=== PATIENT | female | born 2000 | race Caucasian/White ===

== ENCOUNTER 2024-02-17 03:10 | Emergency (ER) | payer SELFPAY ==
--- NOTE | 2024-02-17 03:05 | ECG_ITS ---
APPROVED REPORT Exam: Resting ECG HR:69 bpm ECG Measurements Heart Rate 69 AXES NV 175 P 54 QRSd 94 QRS 18 QT 365 T 24 QTc 384 Conclusion SINUS RHYTHM NORMAL ECG Electronically signed by : JOCELYN BRADLEY, 02/17/2024 06:21:11
[2024-02-17 03:10] VITALS: BP 126/77; PULSE 70; RESP 18; TEMP 37; O2SAT 100; BMI 36.2
--- NOTE | 2024-02-17 03:13 | XR_ITS ---
PROCEDURE INFORMATION: Exam: XR Chest Exam date and time: 02/17/2024 3:35 AM Age: 23 years old Clinical indication: Pain; Chest pressure; Additional info: Cp TECHNIQUE: Imaging protocol: Radiologic exam of the chest. Views: 2 views. COMPARISON: No relevant prior studies available. FINDINGS: Lungs: Unremarkable. No consolidation. Pleural spaces: Unremarkable. No pleural effusion. No pneumothorax. Heart/Mediastinum: Unremarkable. No cardiomegaly. Bones/joints: Unremarkable. IMPRESSION: No acute findings.
[2024-02-17] MEDS: ASPIRIN 81MG CHEWABLE TABLET 324 MG PO (03:17)
[2024-02-17 03:24] LABS: Albumin Level 4.4 g/dl (3.5-5.0); Chloride 108 mmol/L (98-107); Sodium 138 mmol/L (136-145)
[2024-02-17 03:25] LABS: Hematocrit 40.4 % (37.0-47.0); Hemoglobin 13.5 g/dL (12.2-16.2); Mean Corpuscular HGB Conc 33.4 g/dL (31.8-35.4); Mean Corpuscular Hemoglobin 27.2 pg (27.0-31.2); Mean Corpuscular Volume 81.3 fl (81-99); Potassium 3.8 mmoL/L (3.5-5.1); Red Blood Count 4.97 M/mm3 (4.20-5.40); White Blood Count 8.8 K/mm3 (4.8-10.8)
[2024-02-17 03:26] LABS: Basophils % 0.3 % (0.1-2.0); Eosinophils # 0.2 K/mm3 (0.0-0.4); Eosinophils % 2.3 % (0.1-12.0); HCG Qualitative, Serum Negative (Negative); Lymphocytes # 2.4 K/mm3 (0.7-4.5); Mean Platelet Volume 12.7 fl (7.4-10.4); Monocytes # 0.5 K/mm3 (0.1-1.0); Monocytes % 5.7 % (1.7-9.3); Neutrophils # 5.7 K/mm3 (1.8-7.8); Neutrophils % 64.5 % (37.0-80.0); Platelet Count 215 K/mm3 (142-424); Red Cell Distribution Width 12.4 % (11.5-17.5)
[2024-02-17 03:27] LABS: Alanine Aminotransferase 42 U/L (12-78); Albumin/Globulin Ratio 1.6 (1.1-1.8); Alkaline Phosphatase 92 U/L (38-126); Anion Gap 7.8 mEq/L (5-15); Aspartate Amino Transferase 30 U/L (14-36); Bilirubin,Total 0.5 mg/dl (0.2-1.3); Blood Urea Nitrogen 13 mg/dl (7-17); Carbon Dioxide 26 mmol/L (22.0-30.0); Estimated Glomerular Filt Rate 104 ml/min (>60); GFR (African American) 125 ML/MIN (>60); Globulin 2.7 g/dL (1.3-3.2); Total Protein,Serum 7.1 g/dl (6.3-8.2)
[2024-02-17 03:28] LABS: Calcium 9.1 mg/dl (8.4-10.2); Glucose 122 mg/dl (74-100)
[2024-02-17] MEDS: ONDANSETRON 4MG ODT 4 MG SL (03:38)
[2024-02-17 03:40] LABS: Troponin I < 0.01 ng/ml (0.00-0.034)
[2024-02-17 04:00] VITALS: BP 119/74; PULSE 66; O2SAT 93
[2024-02-17 04:30] VITALS: BP 122/82; PULSE 62; O2SAT 97
[2024-02-17 04:59] VITALS: BP 116/82; PULSE 65; O2SAT 98
--- NOTE | 2024-02-17 05:00 | ED_ITS ---
Discharge Plan Disposition Patient Disposition: Home, Self-Care Condition: Good Referrals Follow up/Referrals: Provider,MD Manpreet [Primary Care Provider] - See instructions Prakash Mckeon MD [Staff Physician] - See instructions (recurrent chest pain with occasional palpitations, previous reassuring evals) Activity Restrictions/Add. Instructions Additional Instructions/Restrictions: You were evaluated in the ER and are appropriate for discharge at this time. Continue home medications as previously prescribed. Call the cardiology office for an appointment. You have been referred to them for this purpose. Also follow-up with your primary care doctor. Return to the ER with new, worsening, or otherwise concerning symptoms. Clinical Impressions Clinical Impression: Chest pain Print Language Print Language: Romansh Discharge ED Provider: Louis Xavier General Chief Complaint: Chest Pain Stated Complaint: CP Time Seen by Provider: 02/17/24 03:15 Mode of Arrival: Family Vehicle Source of Information: Patient Limitations: No Limitations Description of Symptoms (Recalled from ER Triage Doc. by RN): Pt c/o midsternal chest pain that has been intermittent for months. States she has been worked-up for palpitations at [facility] and referred to Cardiology there but not until next July. She reports the pain began while she was sitting on the cough doing nothing . Reports she had an echo at [facility] that revealed my heart beats at 50% . She was given metoprolol and has been taking this. Denies any dizzines, SOA, cough, or n/v/d. Denies any radiating pain. She is s/p cholecystsectomy. History of Present Illness HPI narrative: 23-year-old female presents to the ER complaining of midsternal chest pain that she has had for months but was worse tonight. She reports having multiple previous evaluations for her symptoms and for palpitations at [place] and has a referral for cardiology there but has not yet seen them in office. Patient reports tonight approximately 4 hours prior to arrival she had worsening of her chronic chest pain without radiation. She does report associated nausea. She had no syncope, no difficulty breathing, no cough, no vomiting or diarrhea. Pain is nonradiating and she reports it has improved since it started. Patient had initially reported her heart only beats at 50% however after further discussion with her it turns out she has a report of an EF of 50%. She does have a history of prior cholecystectomy. She is not having any abdominal pain at this time. Patient is not on systemic control, she has a Mirena IUD, she denies history of blood clot, no recent long distance travel. She takes metoprolol. Related Data Allergies Allergy/AdvReac Type Severity Reaction Status Date / Time codeine Allergy Other Verified 02/17/24 03:17 [facility] Disclaimer: The information contained in this section may have been updated after the patient was seen, as this information can be updated by other users. Social History Smoking Status: Former smoker alcohol intake: never current occupational status: other Travel in the last 8 weeks: None ROS Obtained: Yes Systems reviewed as appropriate & no additional complaints except as documented Per HPI Constitutional Constitutional: Denies fever(s) Physical Exam General General appearance: alert and in no apparent distress Head Head exam: atraumatic and normocephalic Eye Eye exam: Present PERRL and EOMI ENT ENT exam: Present mucous membranes moist Neck Neck exam: Present normal inspection and full ROM Chest Chest inspection: Present symmetric chest wall rise; Absent tenderness Respiratory Respiratory exam: Present normal lung sounds bilaterally; Absent respiratory distress, wheezes or stridor Cardiovascular Cardiovascular exam: Present regular rate and normal rhythm Abdominal Exam Abdominal exam: Present soft; Absent distention or tenderness Extremities Exam Extremities exam: Present full ROM; Absent edema Neurological Exam Neurological exam: Present alert and oriented X3; Absent motor sensory deficit Psychiatric Psychiatric exam: Present normal affect and normal mood Skin Skin exam: Present warm and dry HEART Score HEART Score HEART Score assessment performed?: Yes History (anamnesis): Slightly suspicious ECG: Normal Age: <45 years Risk factors: 1-2 risk factors Troponin: </= normal limit HEART Score: 1 Critical Care Critical Care Time Critical Care Time: No Medical Decision Making Jack Inquiry Pt receiving controlled substance: No Vital Signs Vital Signs: 02/17/24 03:10 02/17/24 04:00 02/17/24 04:30 Temperature 98.6 F Temperature Source Oral Pulse Rate 66 62 Pulse Rate [Right] 70 Respiratory Rate 18 Blood Pressure 119/74 122/82 Blood Pressure [Right Arm] 126/77 Blood Pressure Mean [Right Arm] 93 Blood Pressure Source [Right Arm] Automatic Cuff 02 Sat by Pulse Oximetry 100 93 L 97 Oxygen Delivery Method Room Air 02/17/24 04:59 Temperature Temperature Source Pulse Rate 65 Pulse Rate [Right] Respiratory Rate Blood Pressure 116/82 Blood Pressure [Right Arm] Blood Pressure Mean [Right Arm] Blood Pressure Source [Right Arm] 02 Sat by Pulse Oximetry 98 Oxygen Delivery Method Lab Data Labs: Lab Results 02/17/24 03:12: WBC 8.8, RBC 4.97, Hgb 13.5, Hct 40.4, MCV 81.3, MCH 27.2, MCHC 33.4, RDW 12.4, Plt Count 215, MPV 12.7 H, Neut % (Auto) 64.5, Lymph % (Auto) 27.0, [place] % (Auto) 5.7, Eos % (Auto) 2.3, Baso % (Auto) 0.3, Neut # (Auto) 5.7, Lymph # (Auto) 2.4, [place] # (Auto) 0.5, Eos # (Auto) 0.2, Baso # (Auto) 0.0, Sodium 138, Potassium 3.8, Chloride 108 H, Carbon Dioxide 26, Anion Gap 7.8, BUN 13, Creatinine 0.70, Estimated GFR 104, Est GFR ( Amer) 125, Glucose 122 H, Calcium 9.1, Total Bilirubin 0.5, AST 30, ALT 42, Alkaline Phosphatase 92, Troponin I < 0.01, Total Protein 7.1, Albumin 4.4, Globulin 2.7, Albumin/Globulin Ratio 1.6, Serum HCG, Qual Negative 02/17/24 05:50: Troponin I < 0.01 02/17/24 03:12 02/17/24 03:12 Response Orders (Tests/Meds): ED MEDICATIONS Discontinued Medications Generic Name Dose Route Start Last Admin Trade Name Freq PRN Reason Stop Dose Admin Aspirin 324 mg 02/17/24 03:15 02/17/24 03:17 Aspirin 81mg Chewable Tablet PO 02/17/24 03:16 324 mg ONCE ONE Administration Ondansetron HCl 4 mg 02/17/24 03:22 02/17/24 03:38 Ondansetron 4mg Odt SL 02/17/24 03:23 4 mg ONCE ONE Administration ORDERS Category Date Time Status CXR 2 view (NOT portable) [XR chest 2V] Stat Exams 02/17/24 03:13 Completed CBC w/Auto Diff [Complete Blood Count Auto Diff] Stat Lab 02/17/24 03:12 Completed CMP [Comprehensive Metabolic Panel] Stat Lab 02/17/24 03:12 Completed HCG Qualitative, Serum Stat Lab 02/17/24 03:12 Completed HIV Combo Routine Lab 02/17/24 03:12 Received Hep C Ab with Reflex to RNA Stat Lab 02/17/24 03:12 Received PT INR [Prothrombin Time INR] Stat Lab 02/17/24 03:13 Ordered Trop I [Troponin I] Stat Lab 02/17/24 03:12 Completed Troponin I Q3H Lab 02/17/24 05:50 Completed Troponin I Q3H Lab 02/17/24 09:15 Ordered MDM Narrative Medical Decision Narrative: In summary, this 23-year-old female presents to the emergency department today with chest pain. On initial evaluation patient is hemodynamically stable, afebrile, cardiopulmonary exam is benign, abdominal exam normal, overall exam is reassuring and benign. Differential diagnosis includes but is not limited to ACS, I considered PE however patient is PERC negative, also considered esophageal spasm, MSK symptoms, pneumothorax. Based on these concerns, I ordered serum labs, cardiac workup, chest x-ray. ECG personally interpreted demonstrates normal sinus rhythm, rate 69, normal axis, normal KS and QTc, no STEMI, overall normal ECG. Patient received ondansetron for treatment. Labs personally reviewed demonstrate nonactionable labs, CBC is without leukocytosis or anemia, platelets normal, CMP nonactionable, initial troponin undetectably low less than 0.01, serial troponin pending. hCG negative. Chest x-ray personally interpreted does not demonstrate acute intrathoracic abnormality. See radiology read for final interpretation. Patient was placed into ED observation at 0415 for serial troponins to rule out evolving AR and preclude unnecessary admission. Patient remained on the athletic monitor while in ED observation. She had stable, reassuring vitals throughout. On frequent reassessment she is not had any recurrence of symptoms and is currently asymptomatic. She is tolerating oral intake. Repeat troponin also undetectably low less than 0.01. She is appropriate for discharge at this time. She was referred to cardiology for outpatient follow-up as well as given instructions to follow-up with her primary care doctor. Patient was given instructions on symptomatic management, follow up instructions, and return precautions for the emergency department. Patient indicated understanding and was discharged in stable condition. Total time in ED observation: 2 hours 8 minutes.
[2024-02-17 06:15] LABS: Troponin I < 0.01 ng/ml (0.00-0.034)
[2024-02-17 06:32] VITALS: BP 123/74; PULSE 68; RESP 15; TEMP 36.7; O2SAT 98
[2024-02-17 13:31] LABS: HIV Combo NEGATIVE (Negative)
[2024-02-19 07:08] LABS: HCV Ab Non Reactive (Non Reactive)
== END 2024-02-17 06:34 | disposition home or self-care (01) ==
PROVIDERS: Emergency Provider Emergency Medicine
DX: R07.9 Chest pain, unspecified (principal); R11.0 Nausea
CPT/HCPCS: 71046; 80053; 84484; 84703; 85025; 86803; 87389; 93005; 99284; Q0162

== ENCOUNTER 2024-03-31 19:41 | Emergency (ER) | payer OTHER, SELFPAY ==
[2024-03-31] VITALS (7 sets, daily range): BP systolic 97–127; BP diastolic 61–88; PULSE 61–71; RESP 10–21; TEMP 36.7–36.8; O2SAT 98–100; BMI 34.0
--- NOTE | 2024-03-31 19:39 | ECG_ITS ---
APPROVED REPORT Exam: Resting ECG HR:67 bpm ECG Measurements Heart Rate 67 AXES LA 173 P 68 QRSd 91 QRS 63 QT 384 T 62 QTc 399 Conclusion SINUS RHYTHM NORMAL ECG UNCONFIRMED REPORT Electronically signed by : COLTON CARTAGENA, 04/01/2024 06:50:49
--- NOTE | 2024-03-31 20:05 | ED_ITS ---
<Statement entered by Danica Huynh DO - 04/01/24 00:26> I was consulted by the [facility], and we discussed the complexity of the problems being addressed. I approved the treatment and management plan for this patient's care in the emergency department, thus performing a substantive portion of the medical decision making. I independently interpreted EKG at 1946 and noted normal sinus rhythm with a ventricular rate of [address] changes concerning for ischemia or cardiac inflammation. Normal axis and intervals. On my assessment, the patient is resting comfortably with no symptoms. Vitals are normal on cardiac telemetry. She has had no recurrence of syncope. She is alert, conversational, reassuring cardiopulmonary exam. She has mild transaminitis, which she was already told previously. She has had extensive workup here as well as [facility] for chest pain in the past and also is following up with cardiology at [place]. At this time, I feel that she is appropriate for discharge with continued close outpatient follow-up with cardiology. Strict return precautions given Danica Huynh DO Discharge Plan Disposition Chief Complaint: Syncope Referrals Follow up/Referrals: Dada Sykes MD [Referring] - See instructions Instructions Patient Instructions: DI for Syncope in Adults (Fainting), DI for Syncope in Children (Fainting) Print Language Print Language: Spanish Discharge ED Provider: Danica Huynh General Adult HPI General Chief complaint: Syncope Stated complaint: Chest pain, dizziness Time Seen by Provider: 03/31/24 20:05 History of Present Illness HPI narrative: Patient presents for evaluation of syncope. Patient states that she was riding in a truck and had sudden onset of substernal chest pain and then syncopized. Boyfriend confirms story as she was the passenger. He said that she passed out several times on the way here. She reports that she has some sort of cardiac arrhythmia and is due for a cardiac ablation at some point in the near future in [facility]. Currently she denies chest pain fever chills hemoptysis hematochezia melena nausea vomit diarrhea focal neurologic deficits. Related Data Allergies Allergy/AdvReac Type Severity Reaction Status Date / Time codeine Allergy Other Verified 02/17/24 03:17 [facility] Disclaimer: The information contained in this section may have been updated after the patient was seen, as this information can be updated by other users. Social History (Updated 02/17/24 @ 06:24 by Louis Xavier MD) Smoking Status: Former smoker alcohol intake: never current occupational status: other Travel in the last 8 weeks: None Have you lived/traveled outside US in past 30 days?: No Contact w/someone who lives/traveled outside US past 30 days?: No Exposure to someone with infectious disease in past 14 days?: No Do you have a fever (greater than 100.4 F or 38 C)?: No Have you tested positive for COVID-19: No Exposed to someone with COVID-19 in past 14 days?: No Do you have a sore throat?: No Do you have a cough?: No Do you have any weakness?: Yes Do you have any diarrhea?: No Are you experiencing any unusual bleeding?: No Do you have any muscle aches/pain?: No Do you have any abdominal pain?: No Are you experiencing loss of taste or smell?: No ROS Obtained: Yes Systems reviewed as appropriate & no additional complaints except as documented Physical Exam General General appearance: alert and in no apparent distress Respiratory Respiratory exam: Present normal lung sounds bilaterally Cardiovascular Cardiovascular exam: Present regular rate Neurological Exam Neurological exam: Present alert and oriented X3 Medical Decision Making Medical Records Medical records reviewed: Yes I reviewed the patient's medical records. Screening: Per USPSTF and CDC recommendations, given the prevalence of disease in our region, it is our hospital?s policy to screen for HIV and viral Hepatitis for all patients aged 18 and over and those with ongoing risk factors. Jack Inquiry Pt receiving controlled substance: No Vital Signs: 03/31/24 19:41 03/31/24 20:00 03/31/24 20:30 Temperature 98.1 F Temperature Source Oral Pulse Rate 61 64 Pulse Rate [Right] 66 Respiratory Rate 19 10 L 18 Blood Pressure 124/84 115/81 Blood Pressure [Right Arm] 119/71 Blood Pressure Mean [Right Arm] 87 Blood Pressure Source [Right Arm] Automatic Cuff Blood Pressure Position [Right Arm] Supine 02 Sat by Pulse Oximetry 100 100 98 Oxygen Delivery Method Room Air Room Air Room Air Lab Data Lab results reviewed: Yes I reviewed the patient's lab results. Lab Results 03/31/24 19:35: WBC 7.0, RBC 5.09, Hgb 13.9, Hct 42.2, MCV 82.9, MCH 27.3, MCHC 32.9, RDW 12.7, Plt Count 260, MPV 13.3 H, Neut % (Auto) 56.8, Lymph % (Auto) 29.8, [place] % (Auto) 8.6, Eos % (Auto) 3.9, Baso % (Auto) 0.6, Neut # (Auto) 4.0, Lymph # (Auto) 2.1, [place] # (Auto) 0.6, Eos # (Auto) 0.3, Baso # (Auto) 0.0, PT 10.0, INR 0.90, Sodium 139, Potassium 3.8, Chloride 101, Carbon Dioxide 31 H, Anion Gap 10.8, BUN 9, Creatinine 0.70, Estimated Creat Clear 166, Estimated GFR 104, Est GFR ( Amer) 125, Glucose 66 L, Calcium 8.8, Magnesium 1.9, Total Bilirubin 0.4, AST 50 H, ALT 130 H, Alkaline Phosphatase 103, Total Protein 7.4, Albumin 4.8, Globulin 2.6, Albumin/Globulin Ratio 1.8, Plasma/Serum Alcohol < 10 03/31/24 20:43: Urine Color Yellow, Urine Appearance Clear, Urine pH 7.5, Ur Specific [place] 1.015, Urine Protein Negative, Urine Glucose (UA) Negative, Urine Ketones Negative, Urine Blood Negative, Urine Nitrate Negative, Urine Bilirubin Negative, Urine Urobilinogen 0.2, Ur Leukocyte Esterase Trace, Urine HCG, Qual Negative 03/31/24 19:35 03/31/24 19:35 Orders (Tests/Meds): ED MEDICATIONS Discontinued Medications Generic Name Dose Route Start Last Admin Trade Name William PRN Reason Stop Dose Admin Acetaminophen 1,000 mg 03/31/24 20:27 03/31/24 20:43 Acetaminophen 500mg Tab PO 03/31/24 20:28 1,000 mg ONCE ONE Administration Ondansetron HCl 4 mg 03/31/24 20:27 03/31/24 20:43 Ondansetron 4mg/2ml Vial IV 03/31/24 20:28 4 mg ONCE ONE Administration ORDERS Category Date Time Status CT angio chest PE protocol Stat Cat Scan 03/31/24 20:27 Ordered BNP [NT Pro Brain Natriuretic Pep.] Stat Lab 03/31/24 19:35 Results CBC w/Auto Diff [Complete Blood Count Auto Diff] Stat Lab 03/31/24 19:35 Completed CMP [Comprehensive Metabolic Panel] Stat Lab 03/31/24 19:35 Results Ethyl Alcohol Stat Lab 03/31/24 19:35 Completed HIV Combo Stat Lab 03/31/24 09:35 Received Hepatitis C Ab Qual. W/ RFX Stat Lab 03/31/24 09:35 Received INR [Prothrombin Time INR] Stat Lab 03/31/24 19:35 Completed Magnesium Stat Lab 03/31/24 19:35 Results Procalcitonin Stat Lab 03/31/24 19:35 Results Rapid PCR Covid and Flu A/B Stat Lab 03/31/24 20:38 Received Thyroid Panel Stat Lab 03/31/24 19:35 Received Trop I [Troponin I] Stat Lab 03/31/24 19:35 Results Troponin I Q3H Lab 03/31/24 23:30 Ordered Troponin I Q3H Lab 04/01/24 02:30 Ordered UA [Urinalysis and Microscopic] Stat Lab 03/31/24 20:43 Results UDS [Drug Screen,Urine] Stat Lab 03/31/24 20:43 Received Urine , HCG Qual. Stat Lab 03/31/24 20:43 Completed Medical Decision Narrative: In summary patient is a 23-year-old female who presents to the emergency department for evaluation of syncope and chest pain. Patient is initially normotensive with a blood pressure 119/71 pulse 66 respiratory rate is 19 satting at 100% on room air normal sinus rhythm on the bedside monitor upon arrival, afebrile at 98.1. Physical exam is unremarkable nonfocal including [place] Coma Score 15 patient is awake alert and oriented person place and circumstance she ambulates in the emergency department she has no focal neurologic deficits her CIWA score 0 breath sounds are clear and equal bilaterally to the bases heart sounds are normal. Differential diagnosis includes cardiac arrhythmia versus vasovagal syncope versus ACS etc. Initial workup will be conducted with hematologic labs plain film chest x-ray urine drug screen urinalysis urine test. Initial interventions include or considered however patient has no focal complaints currently thus we will can just use continuous cardiac monitoring and pulse oximetry for now. Initial workup is ordered and pending at the time of handoff to Dr. Huynh at 2100 hrs. Critical Care Critical Care Time Critical Care Time: No
--- NOTE | 2024-03-31 20:27 | CT_ITS ---
PROCEDURE INFORMATION: Exam: CTA Chest With Contrast Exam date and time: 03/31/2024 9:15 PM Age: 23 years old Clinical indication: Pain; Chest pressure; Additional info: Syncope and collapse, chest pain TECHNIQUE: Imaging protocol: Computed tomographic angiography of the chest with contrast. Exam focused on the arteries. 3D rendering (Not supervised by radiologist): MIP and/or 3D reconstructed images were created by the technologist. Radiation optimization: All CT scans at this facility use at least one of these dose optimization techniques: automated exposure control; mA and/or kV adjustment per patient size (includes targeted exams where dose is matched to clinical indication); or iterative reconstruction. Contrast material: ISOVUE; Contrast volume: 70 ml; Contrast route: INTRAVENOUS (IV); COMPARISON: CR XR CHEST 2V 02/17/2024 3:35 AM FINDINGS: Pulmonary arteries: No CT evidence of acute pulmonary embolus. Aorta: No aortic dissection. Lungs: No acute airspace disease. Pleural spaces: No pleural effusion. No pneumothorax. Heart: Unremarkable. No cardiomegaly. No pericardial effusion. Coronary arteries: No coronary artery calcifications. Lymph nodes: Unremarkable. No enlarged lymph nodes. Gallbladder and biliary ducts: Cholecystectomy Bones/joints: Unremarkable. No acute fracture. Soft tissues: Unremarkable. IMPRESSION: No visible acute intrathoracic abnormality. No acute pulmonary embolus or aortic dissection.
--- NOTE | 2024-03-31 20:40 | PC.NURSE ---
Swab collected. Patient disconnected from monitors to collect urine sample.
[2024-03-31 20:41] LABS: Coronavirus 19, PCR Not Detected (NotDetected); Influenza A, PCR Not Detected (NotDetected); Influenza B, PCR Not Detected (NotDetected)
[2024-03-31] MEDS: ONDANSETRON 4MG/2ML VIAL 4 MG IV (20:43)
[2024-03-31] MEDS: ACETAMINOPHEN 500MG TAB 1000 MG PO (20:43)
[2024-03-31 20:49] LABS: Basophils % 0.6 % (0.1-2.0); Eosinophils # 0.3 K/mm3 (0.0-0.4); Eosinophils % 3.9 % (0.1-12.0); Hematocrit 42.2 % (37.0-47.0); Hemoglobin 13.9 g/dL (12.2-16.2); Lymphocytes # 2.1 K/mm3 (0.7-4.5); Lymphocytes % 29.8 % (10-50); Mean Corpuscular HGB Conc 32.9 g/dL (31.8-35.4); Mean Corpuscular Hemoglobin 27.3 pg (27.0-31.2); Mean Corpuscular Volume 82.9 fl (81-99); Mean Platelet Volume 13.3 fl (7.4-10.4); Monocytes # 0.6 K/mm3 (0.1-1.0); Monocytes % 8.6 % (1.7-9.3); Neutrophils % 56.8 % (37.0-80.0); Platelet Count 260 K/mm3 (142-424); Red Blood Count 5.09 M/mm3 (4.20-5.40); Red Cell Distribution Width 12.7 % (11.5-17.5)
[2024-03-31 20:51] LABS: Microscopic, Urine URINE MICROSCOPIC (MICROSCOPIC)
[2024-03-31 20:56] LABS: Albumin Level 4.8 g/dl (3.5-5.0); Chloride 101 mmol/L (98-107); Sodium 139 mmol/L (136-145)
[2024-03-31 20:57] LABS: Potassium 3.8 mmoL/L (3.5-5.1)
[2024-03-31 20:59] LABS: Appearance,Urine CLEAR (Clear); Bilirubin,Urine Negative (Negative); Blood, Urine Negative (Negative); Color,Urine YELLOW (Yellow); Glucose,Urine (UA) Negative (Negative); Ketones,Urine Negative (Negative); Leukocyte Esterase,Urine TRACE (Negative); Nitrate,Urine Negative (Negative); PH,Urine 7.5 (5.0-8.5); Protein,Urine Negative (Negative); Specific Gravity, Urine 1.015 (1.005-1.030); Urobilinogen,Urine 0.2 EU/dl (0.2)
[2024-03-31 20:59] LABS: Alanine Aminotransferase 130 U/L (12-78); Anion Gap 10.8 mEq/L (5-15); Aspartate Amino Transferase 50 U/L (14-36); Blood Urea Nitrogen 9 mg/dl (7-17); Carbon Dioxide 31 mmol/L (22.0-30.0); Creatinine Clearance Estimated 166 mL/min (50-200); Estimated Glomerular Filt Rate 104 ml/min (>60); GFR (African American) 125 ML/MIN (>60)
[2024-03-31 21:00] LABS: Albumin/Globulin Ratio 1.8 (1.1-1.8); Alkaline Phosphatase 103 U/L (38-126); Bilirubin,Total 0.4 mg/dl (0.2-1.3); Calcium 8.8 mg/dl (8.4-10.2); Globulin 2.6 g/dL (1.3-3.2); Glucose 66 mg/dl (74-100); Magnesium 1.9 mg/dl (1.6-2.3); Total Protein,Serum 7.4 g/dl (6.3-8.2)
[2024-03-31 21:01] LABS: Ethyl Alcohol < 10 mg/dl (0-10)
[2024-03-31 21:01] LABS: Urine Pregnancy, HCG Qual. Negative (Negative)
--- NOTE | 2024-03-31 21:04 | PC.NURSE ---
Pt awake and alert Skin pink warm and dry Resp full and easy. Speech clear and appropriate. Pt denies pain at this time Pt states she was seen at [facility] and had elevated liver enzymes and D-dimer. Had CT scan to assess for PE which was negative.
[2024-03-31 21:11] LABS: Phencyclidine Screen,Urine Negative ng/ml (<25)
[2024-03-31 21:11] LABS: NT Pro Brain Natriuretic Pep. < 20.0 pg/mL (0-125)
[2024-03-31 21:12] LABS: Opiate Screen,Urine Negative ng/ml (<300)
[2024-03-31 21:13] LABS: Barbiturates Screen,Urine Negative ng/ml (<200); Benzodiazepines Screen,Urine Negative ng/ml (<200)
[2024-03-31 21:14] LABS: Amphetamine/Metha Screen,Urine Negative ng/ml (<1000)
[2024-03-31 21:15] LABS: Cannabinoid Screen,Urine Negative ng/ml (<50); Methadone Screen,Urine Negative ng/ml (<300)
[2024-03-31 21:15] LABS: Troponin I < 0.01 ng/ml (0.00-0.034)
[2024-03-31 21:16] LABS: Triiodothryronine (T3) Uptake 30 % (23.5-40.5)
[2024-03-31 21:16] LABS: Cocaine Screen,Urine Negative ng/ml (<300)
[2024-03-31] MEDS: 0.9 % SODIUM CHLORIDE 50 ML VIAL IV (21:16)
[2024-03-31] MEDS: IOPAMIDOL-370 (76%);100ML BOTTLE 70 ML IV (21:16)
[2024-03-31] MEDS: SODIUM CHLORIDE 0.9% 10ML SYR (RAD ONLY) 10 ML IV (21:16)
[2024-03-31 21:17] LABS: Free Thyroxine Index 2.9 ug/dL (5.93-13.13); T4 (Thyroxine) 9.7 ug/dl (5.53-11.0)
[2024-03-31 21:31] LABS: Thyroid Stimulating Hormone 0.67 uIU/mL (0.465-4.68)
[2024-03-31 21:36] LABS: Bacteria,Urine 2+ /lpf
[2024-03-31 21:41] LABS: HIV Combo NEGATIVE (Negative)
[2024-03-31 21:46] LABS: Procalcitonin 0.035 ng/mL (0.0-2.0)
[2024-03-31 21:50] LABS: Hepatitis C Ab Qual. W/ RFX NEGATIVE (Negative)
--- NOTE | 2024-03-31 22:27 | PC.NURSE ---
Pt resting comfortably in bed Awaiting dispo
== END 2024-03-31 23:35 | disposition home or self-care (01) ==
PROVIDERS: Physician Assistant; Emergency Provider Emergency Medicine; PCP Student in an Organized Health Care Education/Training Program
DX: R07.9 Chest pain, unspecified (principal); R55 Syncope and collapse; Z87.891 Personal history of nicotine dependence
CPT/HCPCS: 71275; 80053; 80307; 80320; 81001; 81025; 83735; 83880; 84145; 84436; 84443; 84479; 84484; 85025; 85610; 86803; 87086; 87389; 87636; 93005; 96374; 99285; G0480; J2405; Q9967

== ENCOUNTER 2024-10-16 16:49 | Emergency (ER) | payer OTHER, SELFPAY ==
--- OUTSIDE RECORDS SUMMARY | 2024-08-27 12:00 | XMS_ITS | Encounter Summary ---
Author Organization [facility] Address [address] [place] [address] Care Team Providers Care Aircraft Pneudraulics Repairer Name Role Phone Diana Rachel DO Primary Care Provider + [phone] Reason for Visit * MRI/CAT Scan (Routine) - AFF Authorized Specialty Diagnoses / Procedures Referred By Contac t Referred To Contact Orthopedic Surgery Diagnoses Acute pain of left knee Procedures MRI KNEE LEFT WO CONTRAST Qiana Doimnguez DO [address] [place] [address] Phone: tel: fax: [facility] [address] [place] [id number] Phone: tel: fax: Referral ID Status Reason Start Date Expiration Date Visits Requested Visits Authorized [id number] AFF Authorized 08/11/2024 08/11/2025 1 1 Encounter Details Date Type Department Care Team (Latest Contact Info) Description 08/27/2024 12:00 PM EDT [facility] [address] [place] [address] Qiana Dominguez DO [address] [place] [address] Acute pain of left knee Social History Tobacco Use Types Packs/Day Years Used Date Smoking Tobacco: Some Days Cigarettes Passive Smoke Exposure: Past Smokeless Tobacco: Never Alcohol Use Standard Drinks/Week Comments Not Currently 0 (1 standard drink = 0.6 oz pur e alcohol) social [facility] Utilities Answer Date Recorded In the past 12 months has th e electric, gas, oil, or water company threatened to shut off services in your home? No 06/23/2024 Overall Financial Resource Strain (CARDIA) Answe r Date Recorded How hard is it for you to pa y for the very basics like food, housing, medical care, and heating? Not hard at all 06/23/2024 PHQ-2 Answer Date Recorded PHQ-2 Total Score 0 06/23/2024 [facility] of Occupat ional Health - Occupational Stress Questionnaire Answer Date Recorded Do you feel stress - tense, restless, nervous, or anxious, or unable to sleep at night because your mind is troubled all the time - these days? Patient declined 06/23/2024 Exercise Vital Sign Answer Date Recorde d On average, how many days pe r week do you engage in moderate to strenuous exercise (like a brisk walk)? 0 days 06/23/2024 On average, how many minutes do you engage in exercise at this level? 0 min 06/23/2024 Hunger Vital Sign Answer Date Recorded Within the past 12 months, y ou worried that your food would run out before you got the money to buy more. Never true 06/24/19 25 Within the past 12 months, t he food you bought just didn't last and you didn't have money to get more. Never true 06/23/2024 PRAPARE - Transportation Answer Date Re corded In the past 12 months, has l ack of transportation kept you from medical appointments or from getting medications? No 09/2021 In the past 12 months, has l ack of transportation kept you from meetings, work, or from getting things needed for daily living? No 05/31/2021 [facility] IP Transportation Answer D ate Recorded In the past 12 months, has l ack of reliable transportation kept you from medical appointments, meetings, work or from getting things needed for daily living? No 06/23/2024 Sexually Active Control Partners Comments Yes OCP Male Pill Comments No Sex and Gender Information Value Date Recorded Sex Assigned at Not on file Legal Sex Female 5:15 AM EDT Gender Identity Not on file Sexual Orientation Not on file documented as of this encounter Functional Status * Is the person deaf or does he/she have serious difficulty hearing? Answer Date of Assessment Author No 06/23/2024 4:46 PM EDT Chris Anne RN * Is the person blind or does he/she have serious difficulty seeing even when wearing glasses? Answer Date of Assessment Author No 06/23/2024 4:46 PM EDT Chris Anne RN * Does this person have serious difficulty walking or climbing stairs? Answer Date of Assessment Author No 06/23/2024 4:46 PM EDT Yusef Anne RN * Does this person have difficulty dressing or bathing? Answer Date of Assessment Author No 06/23/2024 4:46 PM EDT Chris Anne RN * Because of a physical, mental or emotional condition, does this person have difficulty doing errands alone such as visiting a doctor's office or shopping? Answer Date of Assessment Author No 06/23/2024 4:46 PM JASONT Chris Anne RN documented as of this encounter Mental Status * Because of a physical, mental or emotional condition, does this person have serious difficulty concentrating, remembering or making decisions? Answer Entry Date Author No 06/23/2024 4:46 PM EDT Chris Anne RN documented in this encounter Plan of Treatment Upcoming Encounters Date Type Department Care Team (Late st Contact Info) Description 11/16/2024 10:30 AM EDT Clinical Support [facility] Si[facility] Tenorio [address] [place] [phone] 11/16/2024 11:00 AM EDT INITIAL VISIT [facility] Sirena Tenorio [address] [place] [phone] 03/02/2025 1:30 PM EST Office Visit [facility] [address] [place] [address] Gia Moctezuma APRN [address] [place] [address] documented as of this encounter Goals Goal Patient Goal Type Associated Problems Recent Progress Patient-Stated? Author Maintain a healthy diet, exercise regularly and maintain an ideal body weight General No Sahra Steward documented as of this encounter Procedures Procedure Name Priority Date/Time Associated Diagnosis Comments MRI KNEE LEFT WO CONTRAST Routine 08/27/2024 12:13 PM EDT Acute pain of left knee documented in this encounter Results * MRI KNEE LEFT WO CONTRAST (08/27/2024 12:13 PM EDT) Narrative [facility] - 08/27/2024 12:13 PM EDT Please see the scanned MRI report associated with this order on the Imaging tab of the patient's chart. us Qiana Dominguez DO IMG MRI ORDERABLES Final Resul t [facility] documented in this encounter Visit Diagnoses Diagnosis Acute pain of left knee documented in this encounter Care Teams Aircraft Pneudraulics Repairer Relationship Specialty Start Date End Date Diana Rachel [place] [address] PCP - General Family Medicine 09/02/23 documented as of this encounter
--- OUTSIDE RECORDS SUMMARY | 2024-09-01 14:45 | XMS_ITS | Encounter Summary ---
Author Organization [facility] Address [address] [place] [address] Care Team Providers Care Incident Response Analyst Name Role Phone Wilson Diana Chris [place] Primary Care Provider + [phone] Reason for Visit * Reason Comments Pain Encounter Details Date Type Department Care Team (Late st Contact Info) Description 09/01/2024 2:45 [place] [address] Mian Alvarez MD [address] [place] [phone] Patellar tendinitis of left knee (Primary Dx) Social History Tobacco Use Types Packs/Day Years Used Date Smoking Tobacco: Some Days Cigarettes Passive Smoke Exposure: Past Smokeless Tobacco: Never Alcohol Use Standard Drinks/Week Comments Not Currently 0 (1 standard drink = 0.6 oz pur e alcohol) social [facility] Utilities Answer Date Recorded In the past 12 months has [employer], gas, oil, or water [employer] threatened to shut off services in your home? No 06/23/2024 Overall Financial Resource Strain (CARDIA) Answe r Date Recorded How hard is it for you to pa y for the very basics like food, housing, medical care, and heating? Not hard at all 06/23/2024 PHQ-2 Answer Date Recorded PHQ-2 Total Score 0 06/23/2024 [facility] of Occupat ional Health - Occupational Stress [...] things needed for daily living? No 05/31/2021 [facility] IP Transportation Answer D ate Recorded In [...] Author No 06/23/2024 4:46 PM EDT Chris Anne, MARIAN * Does this person have serious difficulty [...] 4:46 PM EDT Chris Anne RN documented as of this encounter Mental Status * Because of a physical, mental or emotional condition, does this person have serious difficulty concentrating, remembering or making decisions? Answer Entry Date Author No 06/23/2024 4:46 PM EDT Chris Anne RN documented in this encounter Progress Notes * Mian Alvarez MD - 09/01/2024 2:45 PM EDT Images from the original note were not included. Name: Roselyn Scruggs Age: 24 y.o. Sex : female : 2000 Mian Alvarez MD Date of Visit: 09/01/24 CHIEF COMPLAINT: Chief Complaint Patient presents with ??? Left Knee - Pain HISTORY: Patient presents with a knee injury involving the left knee. Onset of the symptoms was about a month ago. Inciting event: patient states her knee felt like it hyperextended and she felt a pop . Current symptoms include giving out and pain located over the medial side of her knee. Evaluation to date: patient evaluated at the emergency department on 08/05, she was given an alirio wrap for compression.She then followed up with the [facility] urgent care and was placed into an economy knee brace which has been somewhat helpful. Allergies Allergen Reactions ??? Penicillins Rash ??? Codeine Tylenol with Codeine ??? Omnicef [Cefdinir] Rash Past Medical History: Diagnosis Date ??? Anemia with 2020 ??? Anxiety disorder ??? Arrhythmia ??? Arthritis ??? Depression ??? Family history of Downs syndrome 08/24/2018 Pt's cousin ??? GERD (gastroesophageal reflux disease) ??? Headache migraines ??? Heartburn ??? Irritable bowel syndrome ??? Post-operative nausea and vomiting with teeth extraction Past Surgical History: Procedure Laterality Date ??? ABDOMEN SURGERY 12-23-23 Gallbladder removed ??? CHOLECYSTECTOMY, LAPAROSCOPIC N/A 12/23/2023 LAPAROSCOPIC CHOLECYSTECTOMY; Surgeon: Esme Orozco MD; Location: [facility]; Service: General ??? DENTAL SURGERY multiple teeth extracted ??? TONSILLECTOMY AND ADENOIDECTOMY ??? TYMPANOSTOMY TUBE PLACEMENT PHYSICAL EXAMINATION: General: Well-appearing, pleasant, appropriate affect, no distress, alert and oriented x3. Neuro: Normal neurosensory response to touch. Cardiovascular: No signs of edema. Lymphatic: No signs of lymphangitis. Skin: Intact, warm and dry. Gait: Walks with a nonantalgic gait. Musculoskeletal: left Knee Swelling: None Effusion: Negative Tenderness: Patellar tendon Range of Motion: Extension: Normal Flexion: Normal McMurrays: Negative Anterior Lachmann: Negative Posterior Lachmann: Negative Anterior Drawer: Negative Posterior Drawer: Negative Varus Stress Test: Negative Valgus Stress Test: Negative Pivot Shift: Negative Patellar Apprehension: No IMPRESSION: Left knee patellar tendinitis PLAN: Diagnoses and all orders for this visit: Patellar tendinitis of left knee Rest, ice, compression, and elevation (RICE) therapy. Natural history and expected course discussed. Questions answered. NSAIDs per medication orders. Wear brace as needed Follow up as needed X-RAYS: Bilateral standing and Left lateral and Merchant views show No acute fracture or dislocation. MRI: IMPRESSION: 1. No bone/joint abnormality. Intact menisci and articular cartilage surfaces. 2. No ligament or tendon tear. Mild proximal patellar tendinosis. 09/01/24 documented in this encounter Plan of Treatment Upcoming Encounters Date Type Department Care Team (Late st Contact Info) Description 11/16/2024 10:30 AM EDT Clinical Support [facility] Sirena Eugene [address] [place] [address] [place] [phone] 11/16/2024 11:00 AM EDT INITIAL VISIT SEP Sirena Eugene [address] [place] [address] Road [address] [place] [phone] 03/02/2025 1:30 PM EST Office Visit [facility] [address] [facility] [address] [place] [phone] Gia Moctezuma, SURGICAL GARMENT ASSEMBLER [address] [place], [place] [address] documented as of this encounter Goals Goal Patient Goal Type Associated Problems Recent Progress Patient-Stated? Author Maintain a healthy diet, exercise regularly and maintain an ideal body weight General Sahra Boone documented as of this encounter Visit Diagnoses Diagnosis Patellar tendinitis of left knee- Primary Patellar tendinitis documented in this encounter Care Teams Incident Response Analyst Relationship Specialty Start Date End Date Diana Rachel DO [address] [place] [address] PCP - General Family Medicine 09/02/23 documented as of this encounter
--- OUTSIDE RECORDS SUMMARY | 2024-09-14 10:00 | XMS_ITS | Encounter Summary ---
Author Organization [place] [facility] [place] [address] Care Team Providers Care Industrial Cafeteria Manager Name Role Phone Diana Rachel DO Primary Care Provider + [phone] Reason for Referral * Medication Prior Authorization - Denied Specialty Diagnoses / Procedures Referred By Cheryl nowak Referred To Contact Diagnoses Obesity, Class II, BMI 35-39.9 Diana Rachel DO [address] [place] [address] Phone: tel: fax: Referral ID Status Reason Start Date Expiration Date Visits Re quested Visits Authorized [id number] Denied 1 1 Reason for Visit * Reason Comments Annual Exam Weight Loss Would like to discus s weight loss options. Encounter Details Date Type Department Care Team (Late st Contact Info) Description 09/14/2024 10:00 AM EDT Office Visit [facility] [address] [place] [phone] Diana Rachel DO [address] [facility] [place] [phone] Obesity, Class II, BMI 35-39.9 (Primary Dx); Diabetes mellitus screening Social History Tobacco Use Types Packs/Day Years Used Date Smoking Tobacco: Some Days Cigarettes Passive Smoke Exposure: Past Smokeless Tobacco: Never Tobacco Cessation:Ready to Q uit: Not Asked; Counseling Given: Not Answered Alcohol Use Standard Drinks/Week Comments Not Currently 0 (1 standard drink = 0.6 oz pur e alcohol) social [facility] Utilities Answer Date Recorded In [...] Answer Date Recorded PHQ-2 Total Score 0 09/14/2024 [facility] - Occupational Stress [...] things needed for daily living? No 05/31/2021 [facility] IP Transportation Answer D ate Recorded In [...] on file documented as of this encounter Last Filed Vital Signs Vital Sign Reading Time Taken Comments Blood Pressure 121/84 09/14/2024 10:03 AM EDT Pulse 84 09/14/2024 10:03 AM EDT Temperature 36.7 C (98 F) 09/14/2024 10:03 AM EDT Respiratory Rate 18 09/14/2024 10:03 AM EDT Oxygen Saturation 98% 09/14/2024 10:03 AM EDT Inhaled Oxygen Concentration - - Weight 93 kg (205 lb) 09/14/2024 10:03 AM EDT Height 157.5 cm (5' 2 ) 09/14/2024 10:03 AM EDT Body Mass Index 37.49 09/14/2024 10:03 AM EDT documented in this encounter Functional Status * Is the [...] 4:46 PM EDT Chris Anne RN * PHQ-2 Total Score Answer Date of Assessment Author 0 09/14/2024 10:00 AM EDT Sherry Briscoe MA * PHQ-9 Total Score Answer Date of Assessment Author 0 09/14/2024 10:00 AM EDT Sherry Briscoe MA * Question Answer Date of Assessment Author Little interest or pleasure in doing things 0 09/14/2024 10:00 AM EDT Lily Briscoe MA Feeling down, depressed, or hopeless 0 09/14/2024 10:00 AM Lily Gomes MA Trouble falling or staying asleep, or sleeping too much 0 09/14/2024 10:00 AM Lily Gomes MA Feeling tired or having little energy 0 09/14/2024 10:00 AM Lily Gomes MA Poor appetite or overeating 0 09/14/2024 10:00 AM Lily Gomes MA Feeling bad about yourself - or that you are a failure or have let yourself or your family down 0 09/14/2024 10:00 AM Lily Gomes MA Trouble concentrating on things, such as reading the newspaper or watching television 0 09/14/2024 10:00 AM Lily Goems MA Moving or speaking so slowly that other people could have noticed. Or the opposite - being so fidgety or restless that you have been moving around a lot more than usual 0 09/14/2024 10:00 AM Lily Gomes MA Thoughts that you would be better off , or of hurting yourself in some way 0 09/14/2024 10:00 AM Lily Gomes MA If you checked off any problems, how difficult have these problems made it for you to do your work, take care of things at home, or get along with other people? Not difficult at all 09/14/2024 10:00 AM Lily Gomes MA * PHQ-2 Total Score Answer Date of Assessment Author 0 09/14/2024 10:00 AM Sherry Gomes MA documented as of this encounter Mental Status * Because of a physical, mental or emotional condition, does this person have serious difficulty concentrating, remembering or making decisions? Answer Entry Date Author No 06/23/2024 4:46 PM Chris Vasquez RN documented in this encounter Ordered Prescriptions Prescription Sig Dispense Quantity Refills Last Filled Start Date End Date tirzepatide, weight loss, (ZEPBOUND) 2.5 mg/0.5 mL SubQ Pen InjectorIndications :Obesity, Class II, BMI 35-39.9 Inject 2.5 mg under the skin once a week. 2 mL 09/14/2024 documented in this encounter Progress Notes * Diana Rachel DO - 09/14/2024 10:00 AM EDTAssociated Problem(s): Obesity, Class II, BMI 35-39.9 Reviewed and discussed diet and exercise habits Reviewed and discussed calorie intake, nutrition, water intake Will try to obtain and start zepbound Orders: tirzepatide, weight loss, (ZEPBOUND) 2.5 mg/0.5 mL SubQ Pen Injector; Inject 2.5 mg under the skin once a week. * Diana Rachel DO - 09/14/2024 10:00 AM EDT Assessment & Plan Obesity, Class II, BMI 35-39.9 Reviewed and discussed diet and exercise habits Reviewed and discussed calorie intake, nutrition, water intake Will try to obtain and start zepbound Orders: tirzepatide, weight loss, (ZEPBOUND) 2.5 mg/0.5 mL SubQ Pen Injector; Inject 2.5 mg under the skin once a week. Diabetes mellitus screening Orders: HEMOGLOBIN A1C; Future Diana Rachel DO Family Medicine 09/14/2024 Progress Note: Vitals: 09/14/24 1003 BP: 121/84 Pulse: 84 Resp: 18 Temp: 98 ??F (36.7 ??C) TempSrc: Temporal SpO2: 98% Weight: 205 lb (93 kg) Height: 5' 2 (1.575 m) Body mass index is 37.49 kg/m??. SUBJECTIVE: HPI: 24 year old female who presents with concern about weight management. Patient reports increasing weight over the past several months. Patient has started to adjust her diet and is currently eating salads daily as her primary meal. Reports that salads typically have hard-boiled egg with chickenor salmon and a little bit of ranch. Previous history of multiple methods to lose weight which havenot been effective. Family history of diabetes and patient would like diabetes screening today Review of Systems Constitutional: Negative for activity change and appetite change. All other systems reviewed and are negative. OBJECTIVE: Physical Exam Vitals reviewed. Constitutional: Appearance: Normal appearance. Eyes: Conjunctiva/sclera: Conjunctivae normal. Cardiovascular: Rate and Rhythm: Normal rate. Pulmonary: Effort: Pulmonary effort is normal. Breath sounds: Normal breath sounds. Neurological: General: No focal deficit present. Mental Status: She is alert. Mental status is at baseline. Psychiatric: Mood and Affect: Mood normal. Behavior: Behavior normal. Thought Content: Thought content normal. Judgment: Judgment normal. 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 As Roselyn Scruggs's the primary provider managing their obesity, I am committed to providing the most effective treatment options to manage their condition and improve their overall health outcomes. Roselyn Scruggs has been under my care, and despite prescribing a low calorie diet and an exercise plan, she continues to experience poor weight control. This is reinforced at routine office visits. In addition Roselyn Scruggs has been unsuccessful with {weight management attempts:intermittent fasting, low carb diet, regular exercise (>30 min daily), and Weight Watchers. Additionally, she struggles with obesity with a BMI of 37.49. Given Roselyn Scruggs's clinical profile and the failure of previous treatments to achieve adequate weight control, I believe that initiating therapy with a GLP-1 receptor agonist is medically necessary. This class of medication not only assists in achieving better weight control but also offers additional benefits, such as cardiovascular risk reduction and a reduced risk of developing diabetes, which are particularly pertinent in Roselyn Scruggs's case. The specific GLP-1 receptor agonist I am recommending is Zepbound (tirzapetide). This medication has been shown in clinical studies to provide cardiovascular benefits and may reduce their risk of weight related co-morbidities, making it an ideal choice for Roselyn Scruggs. I am confident that Roselyn Scruggs will greatly benefit from this therapy, and I respectfully request your approval for coverage of this medication. Thank you for your attention to this matter. Please feel free to contact me if you require any additional information or clarification. I look forward to your prompt response. Sincerely, Diana Rachel DO * Adrianna Shelby - 09/14/2024 10:00 AM EDT Venipuncture in the right antecubital vein with 21 gauge needle, length 1 1/2 inch. documented in this encounter Plan of Treatment Upcoming Encounters Date Type Department Care Team (Late st Contact Info) Description 11/16/2024 10:30 AM EDT [facility] [place] [phone] 11/16/2024 11:00 AM EDT INITIAL VISIT SEP [address] [place] [phone] 03/02/2025 1:30 PM EST Office Visit [facility] [address] [place] [address] Gia Moctezuma, VINICIO [address] [place] [address] documented as of this encounter Goals Goal Patient Goal Type Associated Problems Recent Progress Patient-Stated? Author Maintain a healthy diet, exercise regularly and maintain an ideal body weight General [facility] Stay Tobacco Free Lifestyle No Nena Xavier documented as of this encounter Procedures Procedure Name Priority Date/Time Associated Diagnosis Comments HEMOGLOBIN A1C Routine 09/14/2024 10:36 AM EDT Diabetes mellitus screening documented in this encounter Results * HEMOGLOBIN A1C (09/14/2024 10:36 AM EDT) Hgb A1C 5.0 4.2 - 5.6 % 09/14/2024 3:56 PM EDT PREFERRED Over 40 Females Est. Avg Glucose 97 mg/dL 09/14/2024 3:56 PM EDT [facility] [employer] [facility] Blood VENOUS BLOOD / Unknown Venipuncture / Unknown 09/14/2024 10:36 AM EDT 09/14/2024 10:36 AM EDT Narrative PREFERRED [employer] [facility] - 09/14/2024 3:56 PM EDT REFERENCE RANGE: Normal: 4.0-5.6% Pre-diabetes: 5.7-6.4% Provisional diagnosis of diabetes: >6.4% Hgb F>10% and anything which shortens red cell survival, such as hemolytic anemia, or unstable hemoglobin variants such as HbSS, HbSC, or HbCC, will lower the HbA1c value associated with a given level of glycemic control. us Diana Rachel DO CHEMISTRY ORDERABLES Final R esult [facility] [employer] [address] , [place] [address] documented in this encounter Visit Diagnoses Diagnosis Obesity, Class II, BMI 35-39.9- Primary Obesity, unspecified Diabetes mellitus screening Screening for diabetes mellitus documented in this encounter Discontinued Medications Medication Sig Discontinue Reason Start Date End Da te hydrOXYzine (ATARAX) 50 mg Oral Tablet Take 50 mg by mouth every 6 hours as needed for Itching. Take 1 tablet by mouth every 6 hours as needed for anxiety Patient Reported not taking medication 09/14/2024 norethindrone-ethinyl estradiol (03/14) 1 mg-20 mcg (21)/75 mg (7) Oral TabletIndications:Agustin h control counseling Take 1 Tablet by mouth daily. Patient Reported not taking medication 06/16/2024 09/14/2024 ondansetron (ZOFRAN-ODT) 4 mg Oral Tablet, Rapid Dissolve Take 1 Tablet by mouth every 6 hours as needed for Nausea. Patient Reported not taking medication 06/23/2024 09/14/2024 documented as of this encounter Care Teams Industrial Cafeteria Manager Relationship Specialty Start Date End Date Diana Rachel DO [address] [facility] [place] [address] PCP - General Family Medicine 09/02/23 documented as of this encounter
--- OUTSIDE RECORDS SUMMARY | 2024-09-14 14:00 | XMS_ITS | Encounter Summary ---
Author Organization [facility] Address [address] [place] [address] Care Team Providers Care Client Onboarding Analyst Name Role Phone Wilson Diana Chris HARRINGTON Primary Care Provider + [phone] Reason for Referral * Surgical (Routine) - AFF Authorization Not Needed Specialty Diagnoses / Procedures Referred By Contact Referred To Contact Gastroenterology Diagnoses Gastroesophageal reflux disease with esophagitis without hemorrhage Procedures ESOPHAGOGASTRODUODENOSCOPY (EGD) UT ESOPHAGOGASTRODUODENOSCOPY TRANSORAL DIAGNOSTIC UT DILATION ESOPH UNGUIDED SOUND/BOUGIE 1/MULT PASS UT EGD INSERT GUIDE WIRE DILATOR PASSAGE ESOPHAGUS UT EGD BALLOON DILATION ESOPHAGUS <30 MM DIAM Kraig Andrade MD [address] [place] [address] Phone: tel:[phone] fax:[phone] Kraig Andrade MD [address] [place] [address] Phone: tel: fax:[phone] Referral ID Status Reason Start Date Expiration Date Visits Requested Visits Authorized [id number] AFF Authorization Not Needed 09/14/2024 09/14/2025 1 1 Reason for Visit * Reason Comments Hospital Follow Up Encounter Details Date Type Department Care Team (Latest Contact Info) Description 09/14/2024 2:00 PM EDT Office Visit [facility] [address] [place] [address] Kraig Andrade MD [address] [facility] [place] [address] Gastroesophageal reflux disease with esophagitis without hemorrhage (Primary Dx); Esophageal dysphagia; Elevated liver enzymes; Choledocholithiasis Social History Tobacco Use Types Packs/Day Years Used Date Smoking Tobacco: Some Days Cigarettes Passive Smoke Exposure: Past Smokeless Tobacco: Never Alcohol Use Standard Drinks/Week Comments Not Currently 0 (1 standard drink = 0.6 oz pur e alcohol) social [facility] Utilities Answer Date Recorded In the past 12 months has e electric, gas, oil, or water company threatened to shut off services in your home? No 06/23/2024 Overall Financial Resource Strain (CARDIA) Answe r Date Recorded How hard is it for you to pa y for the very basics like food, housing, medical care, and heating? Not hard at all 06/23/2024 PHQ-2 Answer Date Recorded PHQ-2 Total Score 0 09/14/2024 [facility] - Occupational Stress [...] things needed for daily living? No 05/31/2021 [facility] IP Transportation Answer D ate Recorded In [...] Sign Reading Time Taken Comments Blood Pressure 114/74 09/14/2024 1:46 PM EDT Pulse 78 09/14/2024 1:46 PM EDT Temperature 36.4 C (97.5 F) 09/14/2024 1:46 PM EDT Respiratory Rate - - Oxygen Saturation - - Inhaled Oxygen Concentration - - Weight 93 kg (205 lb) 09/14/2024 1:46 PM EDT Height 157.5 cm (5' 2 ) 09/14/2024 1:46 PM EDT Body Mass Index 37.49 09/14/2024 1:46 PM EDT documented in this encounter Functional Status [...] 0 09/14/2024 10:00 AM Sherry Gomes MA * PHQ-9 Total Score Answer Date of Assessment Author 0 09/14/2024 10:00 AM Sherry Gomes MA * Question Answer Date of Assessment Author Little interest or pleasure in doing things 0 09/14/2024 10:00 AM Lily Gomes MA Feeling down, depressed, or hopeless 0 [...] watching television 0 09/14/2024 10:00 AM Lily Gomes MA Moving or speaking so slowly that [...] documented in this encounter Progress Notes * Kraig Andrade MD - 09/14/2024 2:00 PM EDT Images from the original note were not included. Chief Complaint Patient presents with Hospital Follow Up HPI: Roselyn Scruggs is a very pleasant 24 y.o. female well-known to our practice who presents for follow-up. She had a cholecystectomy 12/23/2023 for biliary colic/chronic cholecystitis but then experienced significant epigastric/RUQ pain with work-up revealing significantly abnormal liver chemistries with cholestatic pattern of elevation and MRCP showing evidence of cholecystitis. [facility] and ultimately underwent ERCP by Dr. Alvarez as below. She states that she is overall doing very well since discharge over 2 months ago. She simply presents for routine follow-up. She did have the KUB as directed, which revealed that the pancreatic duct stent was nolonger in place. Regarding the findings of severe erosive esophagitis, Roselyn has suffered with severe classic GERD symptoms for many years and states that this is perplexing to her given her young age. She is adherent to once daily PPI taken appropriately 30 minutes prior to breakfast and dinner with symptoms largely controlled. She continues to have intermittent solid-food dysphagia. No addition al complaints or concerns. EGD/ERCP 06/23/[address] Alvarez Impression Grade D esophagitis with mucosal breaks measuring 5 mm or more, continuous between folds, covering 75% or more of the circumference appearing erythematous and ulcerated in the middle third of the esophagus and lower third of the esophagus; performed cold forceps biopsy Performed random forceps biopsies in the body of the stomach and antrum. A sample was sent for histology analysis. Erythematous mucosa in the duodenal bulb Performed random forceps biopsies in the duodenum. A sample was sent for histology analysis. The pancreatic duct was cannulated using a traction sphincterotome with 270 cm x 0.025 straight guidewire. No bleeding was observed One 4 Fr x 3 cm single pigtail plastic stent was placed successfully in the pancreatic duct The common bile duct was cannulated using a traction sphincterotome with 270 cm x 0.025 straight guidewire. Cannulation was not difficult and no bleeding was observed Single filling defect consistent with a stone measuring 7 mm was visualized in the proximal common bile duct Major papilla sphincterotomy was performed using a sphincterotome. No bleeding was noted at the procedure site. Multiple sweeps were performed in the common bile duct using a balloon. Material was removed, achieving complete clearance. Recommendation 1) Follow up on biopsies 2) PPI qdaily 3) Diet as tolerated 4) No NSAIDs or anticoagulation x 7 days due to sphincterotomy 5) Okay to d/c home today or tomorrow with outpatient follow up in 3 months for GERD, dysphagia, esophagitis, and elevated LFTs 6) KUB in 1 week to ensure pancreatic stent has dislodged. If not then will need repeat EGD for removal Pathology A. Small bowel, biopsy: - Peptic duodenitis. - H. pylori is negative by immunohistochemistry. B. Stomach, biopsy: - No significant pathologic changes. - H. pylori is negative by immunohistochemistry. C. Esophagus, biopsy: -Ulcerative esophagitis with mixed acute and chronic inflammation and ~ 12 eosinophils/HPF. - GMS is negative for fungal structures. - Negative for dysplasia and malignancy. Comment: findings are suggestive of reflux esophagitis. Outpatient Medications Marked as Taking for the 09/14/24 encounter (Office Visit) with Kraig Andrade MD Medication Sig Dispense Refill omeprazole (PRILOSEC) 40 mg Oral Capsule, Delayed Release(E.C.) Take 1 Capsule by mouth 2 times daily. 180 Capsule 1 Past Medical History: Diagnosis Date Anemia with 2020 Anxiety disorder Arrhythmia Arthritis Depression Family history of Downs syndrome 08/24/2018 Pt's cousin GERD (gastroesophageal reflux disease) Headache migraines Heartburn Irritable bowel syndrome Post-operative nausea and vomiting with teeth extraction Past Surgical History: Procedure Laterality Date ABDOMEN SURGERY 12-23-23 Gallbladder removed CHOLECYSTECTOMY, LAPAROSCOPIC N/A 12/23/2023 LAPAROSCOPIC CHOLECYSTECTOMY; Surgeon: Esme Orozco MD; Location: [facility] MAIN OR; Service: General DENTAL SURGERY multiple teeth extracted TONSILLECTOMY AND ADENOIDECTOMY TYMPANOSTOMY TUBE PLACEMENT Family History Problem Relation Age of Onset Other (blood clot) Mother Arthritis Mother Sjogren's Syndrome Mother No Known Problems Father No Known Problems Daughter No Known Problems Daughter No Known Problems Daughter No Known Problems Maternal Grandmother Arthritis Maternal Grandfather Diabetes Maternal Grandfather High Blood Pressure Maternal Grandfather High Cholesterol Maternal Grandfather No Known Problems Paternal Grandmother Heart Disease Paternal Grandfather Heart disease Diabetes Paternal Grandfather Breast Cancer Neg Hx Cancer Neg Hx Colon Cancer Neg Hx Eclampsia Neg Hx Hypertension Neg Hx Ovarian Cancer Neg Hx Labor Neg Hx Spont Abortions Neg Hx Stroke Neg Hx Anesth Problems Neg Hx Social History Tobacco Use Smoking status: Some Days Current packs/day: 0.50 Types: Cigarettes Passive exposure: Past Smokeless tobacco: Never Vaping Use Vaping status: Former Substances: Nicotine Devices: Disposable Substance Use Topics Alcohol use: Not Currently Comment: social Drug use: Never Allergies Allergen Reactions Penicillins Rash Omnicef [Cefdinir] Rash Codeine Tylenol with Codeine Immunization History Administered Date(s) Administered HPV 9 Valent 12/12/2016, 08/04/2019 Influenza Vaccine Quadrivalent PF 12/23/2018 PPD Test 08/12/2023 Rho (D) Immune Globulin 09/03/2016, 01/05/2019, 02/19/2019, 06/26/2020, 09/02/2020 Tdap 09/26/2016, 12/08/2018, 01/05/2019, 06/26/2020 Patients medications and past medical, family, and social histories were reviewed and updated. There were no changes except as noted. Objective Objective: Vitals: 09/14/24 1346 BP: 114/74 BP Location: Left arm Patient Position: Sitting Pulse: 78 Temp: 97.5 ??F (36.4 ??C) TempSrc: Temporal Weight: 205 lb (93 kg) Height: 5' 2 (1.575 m) Body mass index is 37.49 kg/m??. Physical Exam: General: No apparent distress, well-appearing, alert and oriented Head: Normocephalic, atraumatic, no abnormalities Eyes: No scleral icterus ENT: Nasal mucosa moist/pink, oral mucosa moist/pink Skin: Warm, no jaundice, no rashes Lungs: Clear to auscultation bilaterally Cardiac: Regular rate and rhythm Abdomen: Soft, nontender, nondistended Assessment and Plan: Diagnoses and all orders for this visit: Gastroesophageal reflux disease with esophagitis Esophageal dysphagia - ESOPHAGOGASTRODUODENOSCOPY (EGD); Future - Repeat EGD to confirm healing of LA grade D erosive esophagitis as incidentally observed during ERCP 06/23/2024 - Continue high-dose PO PPI 30-60 minutes prior to breakfast and dinner for now - Anti-reflux lifestyle modifications - including weight loss if obese, avoidance of meals within 3hours of bedtime, avoidance of trigger foods, avoidance of tobacco products/smoking, elevation of head of bed - reviewed with patient - Repeat biopsies from proximal and distal esophagus to more definitive rule out concomitant eosinophilic esophagitis - Consider esophageal dilation at time of upcoming EGD pending findings History of cholecystectomy, subsequent choledocholithiasis s/p ERCP - COMPREHENSIVE METABOLIC PANEL; Future - PD stent spontaneously dislodged per KUB - Repeat CMP today to ensure normalization of liver chemistries, which are suspected to have arisensolely due to choledocholithiasis; no need for additional work-up unless persistent abnormality observed on repeat check Thank you for allowing me to participate in the care of this patient. Please feel free to reach outwith any questions or concerns. Return For EGD. Kraig Andrade MD documented in this encounter Miscellaneous Notes * Patient Instructions - Kraig Andrade MD - 09/14/2024 2:00 PM EDT Patient Name: Roselyn Scruggs Procedure: Physician: Location: Date: Arrival Time: Procedure Time: Please have nothing by mouth after on (including gum, mints, nicotine or tobacco products) Doing so can delay or cancel your procedure. EGD Preparation Please read the entire pre instructions at least one week before your procedure. If you have any questions, please call our office: Office Number: [phone] Procedure [phone] between 8 AM and 4:30 PM Ambulatory Surgery Center: [phone] between 6 AM and 2:30 PM Please note that not following these instructions may result in cancellation/rescheduling of the procedure. Please contact the office if there have been any changes in your medical condition from thetime you had scheduled your procedure to the date of your procedure (including but not limited to heart attack, stroke or beginning taking blood thinning medication). Not doing so may result in cancellation of your procedure. If you are unable to keep your appointment, please provide at least 72-hours notice. Not doing so will result in a $100 cancellation/no show fee. If you have had an upper respiratory infection (i.e. sinus infection, Covid-19, Flu A or B, bronchitis) within 14 days of your procedure, please call to reschedule. Not doing so may result in a cancellation the day of the procedure. To cancel you may call our CANCELLATION LINE at [phone] and leave a message. You may also call [phone] to speak with Procedure Scheduling. Your safety is our primary concern. Please arrange a responsible adult (age 18 or over) to drive you to our facility, stay at our facility during your procedure, and to drive you home when you are discharged. Please note that if your responsible alliance party is not able to remain on the facility property during the procedure, your procedure will not be able to be performed. Patients will not be admittedunless there is a responsible adult present. Please anticipate remaining at our facility for 2-4 hours. You are to have a responsible adult with you until the effects of the sedation have worn off, which may take several hours. Patients will not be permitted to go home by taxi/Uber/Lyft unless a res ponsible adult is with them. If you have a Port-A-Cath that you would like us to use for your procedure, it is our policy that the Port-A-Cath must be flushed within 30 days of your procedure, or we will not be able to access the port. 5-7 or more days prior to the procedure: Arrange for a responsible alliance party (18 or over). If you do not have a responsible alliance party, we will cancel the procedure. Please remember that by law, you cannot drive the rest of the day after your procedure. Read and familiarize yourself with the preparation instructions below. Please call [phone] with any questions regarding instructions. Please note if you take the medication Phentermine (i.e. Adipex, Shara-Cap, Suprenz, T-diet, Zantryl,Lomaira) you will need to stop this medication 7 full days prior to your procedure. Not doing so may result in a cancellation the day of your procedure. This is up to your physicians discretion. If you are taking medications for weight loss/diabetes, oral or injectables, you will need to hold them for 8 full days prior to your procedure date. These include but are not limited to GLP-1, semaglutides and dulaglutides (i.e. Trulicity, Ozempic, Wegovy, Rybelsus, etc.), and Contrave. Not doing so may result in a cancellation the day of your procedure. If you have any questions about these medications, please reach out to the office. This is up to your physicians discretion. 4 days prior to your procedure, hold Steglatro. 3 days prior to your procedure, hold Jardiance, Invokana, and Farxiga. Review and plan dietary needs during prep time. Please avoid nuts, seeds or berries with seeds the entire week leading up to your procedure. IF YOU TAKE BLOOD THINNING MEDICATION: We are verifying with the ordering provider that you may hold your blood thinner. Please wait until you hear from us before stopping your medication. The scheduling department will call you to confirm once we have received the clearance from the ordering provider. After that has been completed: Take your last dose of on . (You will be instructed when to resume your blood thinner following your procedure. On the day of your procedure: You can have solid food up to 8 hours prior to your procedure. At 8 hours prior to your procedure, please start a clear liquid diet. Examples of clear liquids: coffee or tea (NO milk, creamer, or sugar/sweeteners) Dietary Supplements: Boost or Ensure, any flavor except chocolate or strawberry. No supplement after midnight. Plain Jell-O/Popsicles (NO red or purple). Clear soups and/or broth (strain all vegetables and noodles). Clear fruit juice (i.e. apple or white grape juice, NO orange or grapefruit juice). Sorbet that does NOT contain milk or chunks of fruit. Soft drinks / Milagro Jo Ann / Gatorade (NO red or purple). NO milk, added sugar, grapefruit juice, tomato juice. Do NOT drink alcohol. STOP drinking 3 hours prior to your arrival time. Your arrival time is not your procedure time. Youare asked to arrive early to allow time for registration and preparation. TAKE your heart, blood pressure and seizure medications the morning of the procedure. Do NOT take your blood thinner. If you are diabetic: Do not take your oral medication today. Take ?? of long-acting insulin Hold regular insulin Bring a dose of regular insulin to the procedure with you. Refrain from ALL nicotine and tobacco products, as well as THC products the day of your procedure. If you wear dentures, avoid using adhesive the day of the procedure as the dentures may be removed for the procedure. If you use an inhaler, please bring it with you on the day of your procedure. Be advised that ALL premenopausal women will be required to provide a urine specimen for testing prior to the procedure. Please wear loose fitting, comfortable clothing, and low-heeled shoes. We recommend a short sleeve shirt, to make starting your IV easier. If you wear glasses, these will be removed before your procedure. A basin will be provided, but youmay bring a case if you would like. Please leave your valuables at home; we are not responsible for broken or lost items. Please note that every procedure experience is different and this one may not be the same as your experience with other procedures. IMPORTANT You will be asked to acknowledge receipt of this information on the day of your procedure. Please bring the following on the day of your procedure: This pamphlet and your prep instructions ALL of your Medical Insurance Cards Your drivers license with picture ID A copy of your Power of Local Telephone Operator (POA if necessary) If applicable: your inhaler; contact lens container and solution (if you need to remove them); glasses case; hearing aid(s) and container to put them in, if removed; any medication you have started or changed since your last contact with the endoscopy center A Responsible Adult (age 18 or older) to stay here at the facility during your visit as well as someone to drive you home if not your Responsible Adult Bring or wear socks for your own comfort About the facility: Patient entrance is under the lower-level canopy. There is not an entry from the upper-level to thelower level. The facility doors open at 6:15 AM M- Wi-Fi and a television are present in the waiting area. Please be advised no photography or video recording may take place in the patient care areas. We are a NON-SMOKING campus (inside and outside the facility) After the Procedure: You should expect to be in the Recovery Area 30-45 minutes. You will be seen by your physician prior to discharge. Your Responsible Adult will be brought to the Recovery Area (unless you request not to have them with you) prior to discussing the results of your procedure and giving instructions. You may eat whatever you want after discharge unless your doctor has ordered otherwise. Due to the sedation, we prefer that you do not go into a restaurant. Sedation may cause you to feel drowsy and unsteady. You should review your Post Procedure Instructions once you are fully awake. You should be able to return to your normal activity the day after your procedure. You should receive a call from our staff the next business day. If you are NOT experiencing problems, you DO NOT have to return this call. If you are having problems or questions, please call [phone] or in the event of an emergency call [phone]. Advance directives This serves as your notice that this facility does not honor ???Do Not Resuscitate?? (DNR) directive in an advanced directive. If you do not agree with this policy, let us know and you may be scheduled at another location. WELCOME TO ENDOSCOPY CENTER Physician Ownership Disclosure: [facility], [facility] is owned and operated by [facility], therefore, your physician may have a financial interest in this facility. Insurance: If you have insurance coverage, your insurance company will receive two separate claims. One for the physicians which will also include a charge for any biopsies or specimens collected and one for the Facility fee. Your insurance company may also receive claims from independent laboratory, anesthesia, and pathology. As with your insurance company, you may receive bills for any remaining balance and /or outpatient deductibles and co-pays, resulting from the facility fee, physicians fee, an independent laboratory, anesthesia and pathology. Procedures available: [facility] performs procedures, such as: EGD Esophageal Dilation Colonoscopy Flexible Sigmoidoscopy Small Bowel Enteroscopy Liver Biopsy Gastronomy tube replacement Hemorrhoid banding EUS (Endoscopic Ultrasound) Endoscopic capsule placement Licensure and accreditation: [facility] is licensed by the [facility] as an Ambulatory Surgery Center (ASC) and is accredited by the Accreditation Association for Ambulatory Healthcare (AAAHC). We are also certified by the centers for Medicare and Medicaid Services (CMS) as a participant in a Medicare program. [facility] was recognized by the [place] [employer] (ASGE) for promoting quality in endoscopy. Physician credentials: All physicians providing care at [facility] are board eligible or board certified by the certifying board of gastroenterology and approved and credentialed by the governing board of [facility]. Summary of Patient rights - further information available at facility To be considerate, respectful, and receive quality care To be informed of all available services and to receive the services regardless of age, race, jew, sex, sexual orientation, marital status, or national origin To obtain complete and current medical information, including explanation of treatment and prognosis in terms that can reasonably be understood To receive from his/her physician, the information necessary to give informed consent prior to any procedure To have the right to change providers if other qualified providers are available To expect that within its capacity, the facility must make a reasonable response to the request [facility] To obtain information as to any relationship of this Facility to any other healthcare institution To refuse treatment and be informed of the consequences of this refusal To privacy concerning his or her medical treatment To refuse to participate in experimental research To receive an itemized copy of his or her account statement upon request regardless of source of payment To approve or refuse the release or disclosure of the contents of his or her medical record To know which Facility rules and regulations apply to his or her conduct To express complaints about the care and services provided, voice grievances and recommend changes in policies and services to the center's staff or nurse network services project manager, please call [phone] without fear of reprisal. Patients will receive follow up via phone or written communication. Patients may also contact the [place] Board of Medical Licensure or visit: [email or web address].medicare.gov/Omsbudsman/activities.asp. Patients may also contact the Office of Mechanical Project Manager at [phone] or submit in grievance in writing to: Office of Mechanical Project Manager - [address], [address] [place], [place] [id number] Patient responsibilities: Provide information regarding health history including but not limited to: medications (including over the counter and diet supplements, allergies and sensitivities) and update changes as they occur.If any changes in your medical status arise between the time of scheduling the procedure and the procedure date, we ask that you notify our office. Show consideration to others by being respectful to our healthcare professionals, staff, and other patients Cooperate with their physicians and the facility staff, following policies and procedures Understand and follow the course of treatment directed and participate in care. Inform staff how they feel and their needs Discuss additional consultation Provide the facility with complete and updated insurance and financial information To provide a responsible adult (aged 18 or older) to accompany them home after sedation To be responsible for keeping appointments and notifying if unable to do so documented in this encounter Plan of Treatment Upcoming Encounters Date Type Department Care Team (Late st Contact Info) Description 11/16/2024 10:30 AM EDT Clinical Support [facility] Si[facility] Tenorio [address] [place] [phone] 11/16/2024 11:00 AM EDT INITIAL VISIT SEP Sirena Tenorio [address] [place] [phone] 03/02/2025 1:30 PM EST Office Visit [facility] [address] [facility] [address] [place] [address] Gia Moctezuma APRN [address] [place] [address] documented as of this encounter Goals Goal Patient Goal Type Associated Problems Recent Progress Patient-Stated? Author Maintain a healthy diet, exercise regularly and maintain an ideal body weight General Sahra Boone Stay Tobacco Free Lifestyle No Nena Xavier documented as of this encounter Results * ESOPHAGOGASTRODUODENOSCOPY (EGD) (09/16/2024 1:54 PM EDT) Anatomical Region Laterality Modality Endoscopy Narrative 09/16/2024 2:00 PM EDT Table formatting from the original result was not included. Findings Grade A reflux esophagitis with mucosal breaks measuring less than 5 mm not continuous between folds, covering less than 75% of the circumference in the GE junction; performed cold forceps biopsy. This reflux esophagitis is significantly improved from previous EGD, which showed LA grade D esophagitis. Abnormal mucosa with concentric rings and linear furrows in the upper third of the esophagus, middle third of the esophagus and lower third of the esophagus, suggestive of eosinophilic esophagitis; performed cold forceps biopsy to evaluate for evidence of eosinophilic esophagitis. Normal stomach and normal duodenum with no evidence of pancreatic duct stent (also absent on follow-up abdominal x-ray). Recommendation - Follow up pathology results. Please call our office at [phone] if you have not received results and recommendations within 4 weeks. - Continue omeprazole 40mg 30-60 minutes prior to breakfast and dinner for now. - Follow up with Dr. Andrade at least annually - sooner, as needed. Pre-Procedure Diagnosis / Indication Gastroesophageal reflux disease with esophagitis without hemorrhage Post-Procedure Diagnosis GERD with erosive esophagitis, healing Concern for eosinophilic esophagitis, possibly now in remission on PPI Staff Kraig Andrade MD Medications See Anesthesia Record. Preprocedure A history and physical has been performed, and patient medication allergies have been reviewed. The patient's tolerance of previous anesthesia has been reviewed. The risks and benefits of the procedure and the sedation options and risks were discussed with the patient. All questions were answered and informed consent obtained. ASA 2 - Patient with mild systemic disease Details of the Procedure The patient underwent monitored anesthesia care, which was administered by an anesthesia professional. The patient's blood pressure, heart rate, level of consciousness, oxygen saturation, respirations, ECG and ETCO2 were monitored throughout the procedure. The scope was introduced through the mouth and advanced to the second part of the duodenum. Retroflexion was performed in the cardia, fundus and incisura. The patient experienced no blood loss. The procedure was not difficult. The patient tolerated the procedure well. There were no apparent adverse events. Patient provided education and educated on specific discharge instructions. Patient educated on medications given during the procedure and new medications for discharge. Patient verbalizes understanding of discharge education. Patient stable and awaiting transport for discharge. Events Procedure Events Event Event Time ENDO SCOPE IN TIME 09/16/2024 1:46 PM ENDO SCOPE OUT TIME 09/16/2024 1:54 PM Specimens ID Type Source Tests Collected by Time 1 : R/o EoE Tissue Esophagus TSG PATHOLOGY ORDER Kraig Andrade MD 09/16/2024 [id number] 2 : Erosive esophagitis f/u Tissue Gastroesophageal Junction TSG PATHOLOGY ORDER Kraig Andrade MD 09/16/2024 [id number] Kraig Andrade MD ENDOSCOPY PROCEDURE ORDERA BLES Final Result * COMPREHENSIVE METABOLIC PANEL (09/14/2024 2:30 PM EDT) Sodium 140 136 - 145 mmol/L 09/14/2024 8:26 PM EDT [facility] Potassium 4.0 3.5 - 5.0 mmol/L 09/14/2024 8:26 PM EDT [facility] Chloride 103 98 - 107 mmol/L 09/14/2024 8:26 PM EDT [facility] Total CO2 25 22 - 29 mmol/L 09/14/2024 8:26 PM EDT [facility] Anion Gap 12 7 - 16 mmol/L 09/14/2024 8:26 PM EDT [facility] Calcium 9.0 8.6 - 10.4 mg/dL 09/14/2024 8:26 PM EDT [facility] Glucose Lvl 78 70 - 99 mg/dL 09/14/2024 8:26 PM EDT [facility] BUN 9 6 - 20 mg/dL 09/14/2024 8:26 PM EDT [facility] Creatinine 0.69 0.51 - 1.30 mg/dL 09/14/2024 8:26 PM EDT [facility] Albumin 4.4 3.5 - 5.2 gm/dL 09/14/2024 8:26 PM EDT [facility] Total Protein 7.4 6.4 - 8.3 gm/dL 09/14/2024 8:26 PM EDT [facility] Bili Total 0.4 0.2 - 1.3 mg/dL 09/14/2024 8:26 PM EDT [facility] ALT 17 <=41 U/L 09/14/2024 8:26 PM EDT [facility] AST 17 <=40 U/L 09/14/2024 8:26 PM EDT [facility] Alk Phos 97 36 - 123 U/L 09/14/2024 8:26 PM EDT [facility] eGFR (CKD-EPIcr 2020) 124 >=60 mL/min/1.7 3 m2 09/14/2024 8:26 PM EDT [facility], [facility] Comment:Estimated GFR was ca lculated using the CKD-EPIcr (2020) equation refit without race. The equation is recommended by the National Kidney Foundation - [place] [employer] of Nephrology Task Force. Blood VENOUS BLOOD / Unknown Venipuncture / Unknown 09/14/2024 2:30 PM EDT 09/14/2024 2:30 PM EDT Kraig Andrade MD CHEMISTRY ORDERABLES Final Result [facility], [facility] [address] [facility] , [address] [place] [phone] documented in this encounter Visit Diagnoses Diagnosis Gastroesophageal reflux disease with esophagitis without hemorrhage- Primary Esophageal dysphagia Dysphagia, pharyngoesophageal phase Elevated liver enzymes Nonspecific elevation of levels of transaminase or lactic acid dehydrogenase (LDH) Choledocholithiasis Calculus of bile duct without mention of cholecystitis or obstruction Gastroesophageal reflux disease with esophagitis without hemorrhage documented in this encounter Care Teams Client Onboarding Analyst Relationship Specialty Start Date End Date Diana aRchel DO [employer] [place] [phone] PCP - General Family Medicine 09/02/23 documented as of this encounter
--- OUTSIDE RECORDS SUMMARY | 2024-09-14 14:28 | XMS_ITS | Encounter Summary ---
Author Organization [place] [address] Care Team Providers Care Embossing Clerk Name Role Phone Diana Rachel DO Primary Care Provider + [phone] Encounter Details Date Type Department Care Team (Latest Contact Info) Description 09/14/2024 2:28 PM EDT - 09/14/2024 11:59 PM EDT Hospital Encounter [facility] [address] [place] [address] [facility], [facility] Elevated liver enzymes Discharge Disposition: Home or Self Care Social History Tobacco Use Types Packs/Day Years Used Date Smoking Tobacco: Some Days Cigarettes Passive Smoke Exposure: Past Smokeless Tobacco: Never Alcohol Use Standard Drinks/Week Comments Not Currently 0 (1 standard drink = 0.6 oz pur e alcohol) social [facility] Utilities Answer Date Recorded In the past 12 months has [place], gas, oil, or water Y[place] threatened to shut off services in your home? No 06/23/2024 Overall Financial Resource Strain (CARDIA) Answe r Date Recorded How hard is it for you to pa y for the very basics like food, housing, medical care, and heating? Not hard at all 06/23/2024 PHQ-2 Answer Date Recorded PHQ-2 Total Score 0 09/14/2024 [facility] [place] [facility] - Occupational Stress [...] things needed for daily living? No 05/31/2021 [facility] IP Transportation Answer D ate Recorded In [...] Anne, MARIAN * Does this person have difficulty dressing or bathing? Answer Date of Assessment Author No 06/23/2024 4:46 PM EDT Chris Anne, MARIAN * Because of a physical, mental or emotional condition, does this person have difficulty doing errands alone such as visiting a doctor's office or shopping? Answer Date of Assessment Author No 06/23/2024 4:46 PM Chris Vasquez RN * PHQ-2 Total Score Answer Date [...] Not difficult at all 09/14/2024 10:00 AM EDT Lily Briscoe MA * PHQ-2 Total Score Answer Date of Assessment Author 0 09/14/2024 10:00 AM EDT Sherry Briscoe MA documented as of this encounter Mental Status * Because of a physical, mental or emotional condition, does this person have serious difficulty concentrating, remembering or making decisions? Answer Entry Date Author No 06/23/2024 4:46 PM EDT Chris Anne RN documented in this encounter Medications at Time of Discharge omeprazole (PRILOSEC) 40 mg Oral Capsule, Delayed Release(E.C.)Indic ations:GERD without esophagitis Take 1 Capsule by mouth 2 times daily. 180 Capsule 1 06/17/2024 tirzepatide, weight loss, (ZEPBOUND) 2.5 mg/0.5 mL SubQ Pen InjectorIndication s:Obesity, Class II, BMI 35-39.9 Inject 2.5 mg under the skin once a week. 2 mL 09/14/2024 documented as of this encounter Discharge Disposition Disposition Code Departure Means Destination Home or Self Care documented in this encounter Plan of Treatment Upcoming Encounters Date Type Department Care Team (Late st Contact Info) Description 11/16/2024 10:30 AM EDT Clinical Support [facility] [address] [place] [address] [place] [phone] 11/16/2024 11:00 AM EDT INITIAL VISIT [facility] [address] [place] [address] [place] [phone] 03/02/2025 1:30 PM EST Office Visit [facility] [address] [facility] [address] [place] [address] Gia Moctezuma APRN [address] [facility] [place] [address] documented as of this encounter Goals Goal Patient Goal Type Associated Problems Recent Progress Patient-Stated? Author Maintain a healthy diet, exercise regularly and maintain an ideal body weight General No Bin, Sahra Carla Stay Tobacco Free Lifestyle No Nena Xavier documented as of this encounter Procedures Procedure Name Priority Date/Time Associated Diagnosis Comments COMPREHENSIVE METABOLIC PANEL Routine 09/14/2024 2:30 PM EDT Elevated liver enzymes documented in this encounter Results * COMPREHENSIVE METABOLIC PANEL (09/14/2024 2:30 PM [...] 8:26 PM EDT [facility] AST 17 <=40 U/L 09/14/2024 8:26 PM EDT [facility] Alk Phos 97 36 - 123 U/L 09/14/2024 8:26 PM EDT [facility] eGFR (CKD-EPIcr 2020) 124 >=60 mL/min/1.7 3 m2 09/14/2024 8:26 PM EDT [facility] Comment:Estimated GFR was ca lculated using the CKD-EPIcr (2020) equation refit without race. The equation is recommended by the National Kidney Foundation - [place] [employer] Nephrology Task Force. Blood VENOUS BLOOD / Unknown Venipuncture / Unknown 09/14/2024 2:30 PM EDT 09/14/2024 2:30 PM EDT Kraig Andrade MD CHEMISTRY ORDERABLES Final Result [facility] [address] [place] [address] , [place] [address] documented in this encounter Visit Diagnoses Diagnosis Elevated liver enzymes Nonspecific elevation of levels of transaminase or lactic acid dehydrogenase (LDH) documented in this encounter Care Teams Embossing Clerk Relationship Specialty Start Date End Date Diana [place] [address] PCP - General Family Medicine 09/02/23 documented as of this encounter
--- OUTSIDE RECORDS SUMMARY | 2024-09-16 12:09 | XMS_ITS | Encounter Summary ---
Author Organization [facility] Address [address] [place] [address] Care Team Providers Care Last Putter Away Name Role Phone Wilson Diana Chris HARRINGTON Primary Care Provider [phone] Reason for Referral * Surgical (Routine) - AFF Authorization Not Needed Specialty Diagnoses / Procedures Referred By Contact Referred To Contact Gastroenterology Diagnoses Gastroesophageal reflux disease with esophagitis without hemorrhage Procedures ESOPHAGOGASTRODUODENOSCOPY (EGD) AR ESOPHAGOGASTRODUODENOSCOPY TRANSORAL DIAGNOSTIC AR DILATION ESOPH UNGUIDED SOUND/BOUGIE 1/MULT PASS AR EGD INSERT GUIDE WIRE DILATOR PASSAGE ESOPHAGUS AR EGD BALLOON DILATION ESOPHAGUS <30 MM DIAM Kraig Andrade MD [address] [place] [address] Phone: tel:[phone] fax:[phone] Kraig Andrade MD [address] [place] [address] Phone: tel:[phone] fax:[phone] Referral ID Status Reason Start Date Expiration Date Visits Requested Visits Authorized [id number] AFF Authorization Not Needed 09/14/2024 09/14/2025 1 1 Reason for Visit * Surgical (Routine) - AFF Authorization Not Needed Specialty Diagnoses / Procedures Referred By Contact Referred To Contact Gastroenterology Diagnoses Gastroesophageal reflux disease with esophagitis without hemorrhage Procedures ESOPHAGOGASTRODUODENOSCOPY (EGD) AR ESOPHAGOGASTRODUODENOSCOPY TRANSORAL DIAGNOSTIC AR DILATION ESOPH UNGUIDED SOUND/BOUGIE 1/MULT PASS AR EGD INSERT GUIDE WIRE DILATOR PASSAGE ESOPHAGUS AR EGD BALLOON DILATION ESOPHAGUS <30 MM DIAM Kraig Andrade MD [address] [address] Phone: tel:[phone] fax:[phone] Kraig Andrade MD [address] [place] [address] Phone: tel:[phone] fax:[phone] Referral ID Status Reason Start Date Expiration Date Visits Requested Visits Authorized [id number] AFF Authorization Not Needed 09/14/2024 09/14/2025 1 1 Encounter Details Date Type Department Care Team (Latest Contact Info) Description 09/16/2024 12:09 PM EDT - 09/16/2024 11:59 PM EDT Hospital Encounter [facility] [address] [place] [facility] [place] [address] Kraig Andrade MD [address] [place] [address] Gastroesophageal reflux disease with esophagitis without hemorrhage Discharge Disposition: Home or Self Care Social History Tobacco Use Types Packs/Day Years Used Date Smoking Tobacco: Some Days Cigarettes Passive Smoke Exposure: Past Smokeless Tobacco: Never Alcohol Use Standard Drinks/Week Comments Not Currently 0 (1 standard drink = 0.6 oz pur e alcohol) social- rarely [facility] Utilities Answer Date Recorded In the past 12 months has Delivery Agent, gas, oil, or water [employer] threatened to shut off services in your home? No 06/23/2024 Overall Financial Resource Strain (CARDIA) Answe r Date Recorded How hard is it for you to pa y for the very basics like food, housing, medical care, and heating? Not hard at all 06/23/2024 PHQ-2 Answer Date Recorded PHQ-2 Total Score 0 09/14/2024 [facility] Occupat ional Health - Occupational Stress [...] things needed for daily living? No 05/31/2021 [facility] IP Transportation Answer D ate Recorded In [...] Sign Reading Time Taken Comments Blood Pressure 111/68 09/16/2024 2:12 PM EDT Pulse 80 09/16/2024 2:12 PM EDT Temperature 36.7 C (98.1 F) 09/16/2024 12:22 PM EDT Respiratory Rate 18 09/16/2024 2:12 PM EDT Oxygen Saturation 98% 09/16/2024 2:12 PM EDT Inhaled Oxygen Concentration - - Weight 92.7 kg (204 lb 6.4 oz) 09/16/2024 12:22 PM EDT Height 160 cm (5' 3 ) 09/16/2024 12:22 PM EDT Body Mass Index 36.21 09/16/2024 12:22 PM EDT documented in this encounter Functional Status * Is the person deaf or does he/she have serious difficulty hearing? Answer Date of Assessment Author No 06/23/2024 4:46 PM EDT hCris Anne RN * Is the person blind [...] Chris Anne RN documented in this encounter Discharge Instructions * Discharge Instructions* Diana Carrillo RN - 09/16/2024 2:01 PM EDT Follow up pathology results. Please call our office at [phone] if you have not received results and recommendations within 4 weeks. - Continue omeprazole 40mg 30-60 minutes prior to breakfast and dinner for now. - Follow up with Dr. Andrade at least annually - sooner, as needed. IT IS VERY IMPORTANT THAT YOU FOLLOW THESE INSTRUCTIONS: ACTIVITY: The sedative medications generally wear off quickly, but they may make you less alert than normal. Today should be a day of rest. DO NOT drive a car, undertake vigorous exercise, or operatemachinery today. DO NOT sign any legal documents or make any important decisions. You may resume normal activity the day after your procedure. DIET: You may resume your usual diet unless directed otherwise. It is encouraged that you drink plenty of fluids throughout the day to help replenish lost fluids. DO NOT consume alcoholic beverages until the following day due to the residual effects of the administered sedation. MEDICATIONS: Resume home medications unless the physician indicates otherwise in the recommendations listed above. WHAT TO EXPECT FOLLOWING YOUR PROCEDURE: You may experience a mild sore throat related to the passage of the endoscope. Sharp or persistent abdominal, neck or chest pain is uncommon after procedure. If you experience persistent pain or vomiting blood following procedure, please contact the office. If you develop a fever greater than 101 degrees or chills during the next 48 hours, please contact our office. Please monitor your IV site closely for any post removal complications. You may or may not have received medications that are classified as vesicants (medications that can cause tissue damage). Examples of such medications used at [facility] [place] include dextrose, epinephrine, esmolol, lorazepam, phenylephrine, and/or promethazine. The medications you received today will be listed on the first page of your discharge instructions. Please contact our office immediately if any of the following occur: Red streaks on your skin near the IV site Skin at the IV site turns dark or peels Fluid, blood, or pus leaking from the IV site Swelling, pain or redness at the IV site that doesn???t get better or gets worse Numb, tight, or cool feeling at the IV site Blisters or bruises on your skin at the IV site Fever of 100.4 or higher You may feel nauseated today. This may occur due to the medications administered for your procedure. This should resolve within a few hours. If your nausea continues for more than 24 hours, please contact our office. Do not use enemas or suppositories unless you have discussed this with your physician. Contact our office at [phone] or [phone] if questions or problems arise. Our office hoursare 8:00 am to 5:00 pm Thursday through Thursday. A practitioner is mine environmental engineer outside of office hours foremergency phone calls at [phone] or [phone] Biopsies are used to evaluate many things and do not indicate that cancer was found. They are used to help determine the cause of symptoms. All biopsies will be reviewed by a pathologist. The resultsmay not be available for 2-3 weeks. Follow up on the biopsy results as instructed by your physician. After you have completely recovered from your sedation, please review your discharge instructions. You may not remember speaking with your physician following your procedure due to the amnesic effects of the sedation. In efforts to provide continuity of care, you will receive a follow up phone call from our [facility] the following day (or on Thursday should your procedure fall on Thursday). If you are unavailable to accept the call and if permissible, according to your HIPAA form on file, we will leave a message. You are not required to return the call unless you have questions or concerns. If the HIPAA form that is on file does not permit our facility to leave a message, we will not do so. We strive to provide compassionate, high quality, cost effective care to our patients and to make your experience as comfortable as possible. We value your opinion and encourage you to offer commentsor suggestions by completing a brief online survey (via secured connection) that will be emailed toyou within a week your procedure from [employer] Your input contributes to our facility's process of continually reviewing and improving patient satisfaction. We thank you in advance for your feedback. documented in this encounter Medications at Time [...] or Self Care documented in this encounter Progress Notes * Teri Arredondo CRNA - 09/16/2024 1:00 PM EDT Images from the original note were not included. Patient: Roselyn Scruggs Age: 24 y.o. Sex: female Vitals: Vitals: 09/16/24 1355 BP: Pulse: Resp: Temp: SpO2: 98% Planned Procedure: ESOPHAGOGASTRODUODENOSCOPY (EGD) Surgical History: Past Surgical History: Procedure Laterality Date ABDOMEN SURGERY 12-23-23 Gallbladder removed CHOLECYSTECTOMY, LAPAROSCOPIC N/A 12/23/2023 LAPAROSCOPIC CHOLECYSTECTOMY; Surgeon: Esme Orozco MD; Location: [facility]; Service: General DENTAL SURGERY multiple teeth extracted TONSILLECTOMY AND ADENOIDECTOMY TYMPANOSTOMY TUBE PLACEMENT Allergies: Allergies Allergen Reactions Penicillins Rash Omnicef [Cefdinir] Rash Codeine Other (See Comments) Tylenol with Codeine, hyperactivity Medications: Current Outpatient Medications Medication Instructions omeprazole (PRILOSEC) 40 mg, Oral, 2 TIMES DAILY tirzepatide (weight loss) (ZEPBOUND) 2.5 mg, Subcutaneous, WEEKLY Anesthesia Assessment: Results for orders placed or performed during the hospital encounter of 09/16/24 POCT URINE Result Value Ref Range Preg Test, Ur negative Lot Number [id number] Expiration Date 02/10/26 SeriAl # Control Line Yes YES/NO 09/16/2024 11:52 AM AMB [facility] ANESTHESIA ASSESSMENT SUPERVISOR [employer]OR GANG performed anesthesia assessment for patients receiving MAC anesthesia. Anesthesia plan explained to patient per SUPERVISOR LABOR GANG. Consent for anesthesia obtained. Yes Neurological Assessment Within normal limits Cardiac Assessment RRR no M/R/G Pulmonary Assessment Lungs clear to auscultate bilaterally / respirations easy and even Airway Evaluation Mallampati Classification 1 Dentation Evaluation Good dentation ASA Class P2 - a patient with mild systemic disease Anesthesia supplies / equipment checked prior to procedure yes Procedure time out performed Yes Patient position for procedure Left lateral position and HOB elevated Monitors during procedure EKG;SaO2;EtCO2;NIBP Oxygen delivery Nasal Cannula Airway utilized for procedure Natural Post procedure report given to post procedure nurse Yes Procedure Documentation: Sedation Summary (09/16/2024 11:53:02 to 09/16/2024 14:55:29) 09/16/2024 Event Details User 11:53:02 Documentation Start Time Teri Arredondo CRNA 11:53:03 Staff Arrived Teri Arredondo CRNA [SUPERVISOR [employer] GANG]; Kraig Andrade MD [Performing P]; Sangeeta Davis RN [Nurse] Teri Arredondo CRNA 12:02:48 Department check-in started Jet Overton 12:02:49 HOV Confirmation Started Jet Overton 12:09:48 Department check-in complete Brooklynn Jet [place]ura 12:09:48 HOV Confirmed Brooklynn Jet [place] 12:09:48 Orders Placed Endoscopy - ESOPHAGOGASTRODUODENOSCOPY (EGD) Jet Overton Lorenzo 12:09:48 Patient In - Facility (Arrived) Status: In Facility -- 12:12:21 Patient In - Pre-Op Status: Patient in Pre-Op -- 12:13:20 Orders Placed Point of Care Testing - POCT urine Nursing - TimeOut; Monitor pulse oximetry, blood pressure and pulse every 3 minutes; Administer Oxygen as needed for SaO2 <90%; Medications as indicated on the procedure report; Process any specimens per policy; Consent; In the event of excessive blood loss ,which may require blood replacement, patient to be transferred to hospital; Cardiac / Respiratory Arrest: Follow Code Blue Protocol; PostProcedure Vitals; Offer clear liquids and record gag reflex present; Discontinue IV when toleratingpo fluids; Ambulate with assistance when awake and alert; Discharge; Discharge Instructions; Obtainweight and vital signs (including BP, pulse, respirations, SaO2 and temperature); Start IV; Remove d entures from patients scheduled for EGD; Obtain the following labs as indicated:; Administer (2) tap water enemas 1500 cc for the following: Kraig Andrade MD 12:18:41 Allergies Reviewed - Verified Keisha Shahid RN 12:19:36 Start Rooming Keisha Shahid RN 12:19:36 Home Medications Reviewed Keisha Shahid RN 12:22 [facility] Vitals [facility] Vitals BP: 126/81 SpO2: 99 % Pulse: 76 Keisha Shahid RN 12:22:03 History Reviewed Sections Reviewed: Medical, Surgical, Family, Alcohol, Sexual Activity, Drug Use, Tobacco, Custom Keisha Shahid RN 12:28 Specimens Collected POCT urine 12:30 Peripheral IV 09/16/24 1230 Right Antecubital Placed Placement Date/Time: 09/16/24 1230 Size (Gauge): 22 Orientation: Right Location: Antecubital Inserted by: ccox Insertion attempts: 1 PatientPrep: Alcohol Keisha Shahid RN 12:31 POCT urine Resulted Collected: 09/16/2024 12:28 Last updated: 09/16/2024 12:32 Status: Final result Preg Test, Ur: negative Lot Number: [id number] Expiration Date: 02/10/26 Control Line: Yes YES/NO Keisha Shahid RN 12:31:31 Patient Ready for Endoscopy Status: Patient in Pre-Op -- 12:39:38 Done Rooming Keisha Shahid RN 13:42:10 Anesthesia Start Time Teri Arredondo CRNA 13:43 [facility] Vitals [facility] Vitals BP: 112/73 (Device Time: :43:00) BP MAP (mmHg): 83 (Device Time: :43:00) Resp: 12 (Device Time: :43:00) SpO2: 98 % (Device Time: :43:00) ETCO2 (mmHg): 16 mmHg (Device Time: ::00) Pulse: 90 (Device Time: :43:00) Teri Arredondo CRNA 13:43:08 Patient Out - Pre-Op Status: Patient in Pre-Op -- 13:43:09 Patient In - Proc. Room Status: Patient In Proc. Room -- 13:43:11 Endoscopy Documentation Start Sangeeta Davis RN 13:43:16 Timeout: Initial in Room Verified by Sangeeta Davis RN at 09/16/2024 1343 Sangeeta Davis RN 13:44 TS[facility] Vitals [facility] Vitals Resp: 19 (Device Time: :44:00) SpO2: 100 % (Device Time: :44:00) ETCO2 (mmHg): 33 mmHg (Device Time: :44:00) Pulse: 77 (Device Time: :44:00) Teri Arredondo CRNA 13:44:04 Start Visit Kraig Andrade MD 13:44:04 Home Medications Reviewed Kraig Andrade MD 13:45 TSG Vitals [facility] Vitals Resp: 0 (Device Time: :45:00) SpO2: 100 % (Device Time: :45:00) ETCO2 (mmHg): 0 mmHg (Device Time: :45:00) Pulse: 77 (Device Time: :45:00) Teri Arredondo CRNA 13:45:27 TSG Vitals [facility] Vitals Cardiac Rhythm: SR Teri Arredondo CRNA 13:45:33 Medication Ordered and Given lidocaine 1% 10 mg/mL (1 %) injection - Dose: 10 mL ; Route: Intravenous ; Line: Peripheral IV 09/16/24 1230 Right Antecubital Ordered by: Teri Arredondo CRNA Bridges, Kim, CRNA 13:45:37 Medication Ordered and Given propofoL (DIPRIVAN) injection - Dose: 100 mg ; Route: Intravenous ; Line: Peripheral IV 09/16/24 1230 Right Antecubital Ordered by: Teri Arredondo CRNA Bridges, Kim, CRNA 13:45:42 Pain Med Given Intravenous Given - fentaNYL (SUBLIMAZE) injection Teri Arredondo CRNA 13:45:42 Medication Ordered and Given fentaNYL (SUBLIMAZE) injection - Dose: 100 mcg ; Route: Intravenous ; Line: Peripheral IV 09/16/24 1230 Right Antecubital Ordered by: Teri Arredondo CRNA Bridges, Kim, CRNA 13:45:46 Medication Ordered and Given ondansetron (ZOFRAN) injection - Dose: 4 mg ; Route: Intravenous ; Line: Peripheral IV 09/16/24 1230 Right Antecubital Ordered by: Teri Arredondo CRNA Bridges, Kim, CRNA 13:46 [facility] Vitals [facility] Vitals BP: 113/75 (Device Time: :46:00) BP MAP (mmHg): 83 (Device Time: :46:00) Resp: 13 (Device Time: :46:00) SpO2: 100 % (Device Time: :46:00) ETCO2 (mmHg): 0 mmHg (Device Time: :46:00) Pulse: 72 (Device Time: :46:00) Teri Arredondo CRNA 13:46:06 Timeout: Final - Physician Led Verified by Sangeeta Davis, MARIAN at 09/16/2024 1346 Sangeeta Davis, MARIAN 13:46:14 Endoscopy Scope In Time Sangeeta Davis RN 13:47 TS[facility] Vitals [facility] Vitals Resp: 21 (Device Time: :47:00) SpO2: 98 % (Device Time: :47:00) ETCO2 (mmHg): 0 mmHg (Device Time: :47:00) Pulse: 91 (Device Time: :47:00) Teri Arredondo CRNA 13:47:45 Medication Given propofoL (DIPRIVAN) injection - Dose: 50 mg ; Route: Intravenous ; Line: Peripheral IV 09/16/24 1230 Right Antecubital Teri Arredondo CRNA 13:48 TS[facility] Vitals [facility] Vitals Resp: 15 (Device Time: :48:00) SpO2: 74 % (Device Time: :48:00) ETCO2 (mmHg): 0 mmHg (Device Time: :48:00) Pulse: 90 (Device Time: :48:00) Teri Arredondo CRNA 13:48:20 Medication Given propofoL (DIPRIVAN) injection - Dose: 50 mg ; Route: Intravenous ; Line: Peripheral IV 09/16/24 1230 Right Antecubital Teri Arredondo CRNA 13:49 TS[facility] Vitals [facility] Vitals Resp: 22 (Device Time: :49:00) SpO2: 97 % (Device Time: :49:00) ETCO2 (mmHg): 0 mmHg (Device Time: :49:00) Pulse: 90 (Device Time: :49:00) Teri Arredondo CRNA 13:49:39 Medication Given propofoL (DIPRIVAN) injection - Dose: 50 mg ; Route: Intravenous ; Line: Peripheral IV 09/16/24 1230 Right Antecubital Teri Arredondo CRNA 13:50 [facility] Vitals [facility] Vitals BP: 125/85 (Device Time: :50:00) BP MAP (mmHg): 98 (Device Time: :50:00) Resp: 13 (Device Time: :50:) SpO2: 99 % (Device Time: :50:00) ETCO2 (mmHg): 1 mmHg (Device Time: :50:00) Pulse: 77 (Device Time: :50:00) Teri Arredondo CRNA 13:50:51 Medication Given propofoL (DIPRIVAN) injection - Dose: 50 mg ; Route: Intravenous ; Line: Peripheral IV 09/16/24 1230 Right Antecubital Teri Arredondo CRNA 13:51 TS[facility] Vitals [facility] Vitals Resp: 9 (Device Time: :51:00) SpO2: 99 % (Device Time: ::00) ETCO2 (mmHg): 0 mmHg (Device Time: :51:00) Pulse: 78 (Device Time: :51:00) Teri Arredondo CRNA 13:52 [facility] Vitals [facility] Vitals Resp: 11 (Device Time: ::00) SpO2: 98 % (Device Time: :52:00) ETCO2 (mmHg): 10 mmHg (Device Time: :52:00) Pulse: 78 (Device Time: 13:52:00) Teri Arredondo CRNA 13:53 [facility] Vitals [facility] Vitals BP: 109/75 (Device Time: 13:53:00) BP MAP (mmHg): 86 (Device Time: 13:53:00) Resp: 11 (Device Time: 13:53:00) SpO2: 98 % (Device Time: 13:53:00) ETCO2 (mmHg): 12 mmHg (Device Time: 13:53:00) Pulse: 77 (Device Time: 13:53:00) Teri Arredondo CRNA 13:53:33 Medication Given propofoL (DIPRIVAN) injection - Dose: 50 mg ; Route: Intravenous ; Line: Peripheral IV 09/16/24 1230 Right Antecubital Teri Arredondo CRNA 13:54 Specimens Collected [facility] Pathology Order - ID: 1 Type: Tissue [facility] Pathology Order - ID: 2 Type: Tissue Kraig Andrade MD 13:54 [facility] Vitals [facility] Vitals Resp: 11 (Device Time: 13:54:00) SpO2: 98 % (Device Time: :54:00) ETCO2 (mmHg): 11 mmHg (Device Time: :54:00) Pulse: 73 (Device Time: 13:54:00) Teri Arredondo CRNA 13:54:35 Endoscopy Scope Out Time Sangeeta Davis RN 13:54:44 Endoscopy Documentation End Sangeeta Davis RN 13:54:46 Patient Out - Proc. Room Status: Patient In Proc. Room -- 13:55 TSG Vitals [facility] Vitals Resp: 11 (Device Time: 13:55:00) SpO2: 98 % (Device Time: :55:00) ETCO2 (mmHg): 17 mmHg (Device Time: :55:00) Teri Arredondo CRNA 13:55:21 Orders Placed Lab - [facility] Pathology Order Kraig Andrade MD 13:55:23 Anesthesia End Teri Arredondo CRNA Performance Met for transition of care protocol The signature(s) below denote: Surgeon and KRISTEN/SUPERVISOR [employer]OR GANG collaboration for anesthesia necessity/delivery. Patient reassessed and meets all discharge criteria. No complications noted. Teri Arredondo CRNA documented in this encounter Plan of Treatment Upcoming Encounters Date Type Department Care Team (Late st Contact Info) Description 11/16/2024 10:30 AM EDT Clinical Support [facility] [address] [place] [address] 11/16/2024 11:00 AM EDT INITIAL VISIT [facility] [address] [place] [address] 03/02/2025 1:30 PM EST Office Visit [facility] [address] [place] [address] Gia Moctezuma, VINICIO [address] [place] [address] documented as of this encounter Goals Goal Patient Goal Type Associated Problems Recent Progress Patient-Stated? Author Maintain a healthy diet, exercise regularly and maintain an ideal body weight General Sahra Boone Stay Tobacco Free Lifestyle Nena Joyce documented as of this encounter Procedures Procedure Name Priority Date/Time Associated Diagnosis Comments ESOPHAGOGASTRODUODENOSCOPY (EGD) Routine 09/16/2024 1:54 PM EDT Gastroesophageal reflux disease with esophagitis without hemorrhage [facility] ORDER Routine 09/16/2024 1:54 PM EDT Gastroesophageal reflux disease with esophagitis without hemorrhage POCT URINE Routine 09/16/2024 12:28 PM EDT documented in this encounter Results * ESOPHAGOGASTRODUODENOSCOPY (EGD) (09/16/2024 [...] pathology results. Please call our office at [phone] if you have not received results and [...] [facility] PATH[facility]Y ORDER Kraig Andrade MD 09/16/2024 1354 2 : Erosive esophagitis f/u Tissue Gastroesophageal Junction [facility] PATH[facility]Y ORDER Kraig Andrade MD 09/16/2024 1354 Kraig Andrade MD ENDOSCOPY PROCEDURE ORDERA BLES Final Result * [facility] PATH[facility]Y ORDER (09/16/2024 1:54 PM EDT) Tissue CARDIOESOPHAGEAL JUNCTION STRUCTURE / Unknown 09/16/2024 1:54 PM EDT Tissue specimen (specimen) ESOPHAGEAL STRUCTURE / Unknown 09/16/2024 1:54 PM EDT Impressions [facility] - 09/16/2024 7:00 PM EDT A. Esophagus, Select: Biopsy EOSINOPHILIC ESOPHAGITIS NEGATIVE FOR INTESTINAL METAPLASIA, DYSPLASIA, OR MALIGNANCY Microscopic examination shows benign squamous type esophageal mucosa. There is a brisk active esophagitis, characterized by the presence of numerous intraepithelial eosinophils (>40/hpf). There is no evidence of intestinal metaplasia, dysplasia, or malignancy. B. Esophagus, EG Junction: Biopsy EOSINOPHILIC ESOPHAGITIS NEGATIVE FOR INTESTINAL METAPLASIA, DYSPLASIA, OR MALIGNANCY Microscopic examination shows benign gastroesophageal mucosa. There is a brisk active esophagitis, characterized by the presence of numerous intraepithelial eosinophils (>40/hpf). There is no evidence of intestinal metaplasia, dysplasia, or malignancy. Narrative [facility] - 09/16/2024 7:00 PM EDT Pathologist: Davion Francisco MD Kraig Andrade MD [employer] - ORDERABLES Fin al Result [facility] [address] [place] [address] * POCT URINE (09/16/2024 12:28 PM EDT) Preg Test, Ur negative [facility] Lot Number [id number] [facility] Expiration Date 02/10/26 [facility] SeriAl # [facility] Control Line Yes YES/NO [facility] 09/16/2024 12:2 8 PM EDT Kraig Andrade MD POINT OF CARE TEST ORDERAB LES Final Result [facility] [address] [place] [address], [facility] [phone] documented in this encounter Visit Diagnoses Diagnosis Gastroesophageal reflux disease with esophagitis without hemorrhage documented in this encounter Administered Medications Inactive Administered Medications - up to 1 most recent administrations Medication Order MAR Action Action Date Dose Rate Site fentaNYL (SUBLIMAZE) injection Intravenous, INTRAPROCEDURE, Starting on Thu09/16/24 at 1345, Until Thu09/16/24 at 1345 Given 09/16/2024 1:45 PM EDT 100 mcg lidocaine 1% 10 mg/mL (1 %) injection Intravenous, INTRAPROCEDURE, Starting on Thu09/16/24 at 1345, Until Thu09/16/24 at 1345 Given 09/16/2024 1:45 PM EDT 10 mL ondansetron (ZOFRAN) injection Intravenous, INTRAPROCEDURE, Starting on Thu09/16/24 at 1345, Until Thu09/16/24 at 1345 Given 09/16/2024 1:45 PM EDT 4 mg propofoL (DIPRIVAN) injection Intravenous, INTRAPROCEDURE, Starting on Thu09/16/24 at 1345, Until Thu09/16/24 at 1353 Given 09/16/2024 1:53 PM EDT 50 mg documented in this encounter Care Teams Last Putter Away Relationship Specialty Start Date End Date Diana Rachel DO [address] [place] [address] PCP - General Family Medicine 09/02/23 documented as of this encounter
--- OUTSIDE RECORDS SUMMARY | 2024-10-10 10:15 | XMS_ITS | Encounter Summary ---
Author Organization [place] [address] Care Team Providers Care Manager Animal Name Role Phone Diana Rachel DO Primary Care Provider + [phone] Reason for Referral * Consultation (Routine) - Authorization Not Needed Specialty Diagnoses / Procedures Referred By Contact Referred To Contact Obstetrics and Gynecology Diagnoses Positive test Procedures ME OFFICE/OUTPATIENT NEW MODERATE MDM 45 MINUTES Cheryl Giron APRN [address] [place] [address] Phone: tel: fax: [facility] [address] [place] [address] Phone: tel: fax: Referral ID Status Reason Start Date Expiration Date Visits Requested Visits Authorized [id number] Authorization Not Needed Specialty Services Required 10/10/2025 99 99 Question Answer Is this for an abnormal pap? No Comments Positive test Reason for Visit * Reason Comments Nausea 1 month, nausea w/ea ting, fatigue, light headed, H/A (hx migraine), symptoms of low blood sugar Encounter Details Date Type Department Care Team ([facility] Contact Info) Description 10/10/2024 10:15 AM EDT Office Visit [facility] [address] [place] [address] Cheryl Giron, ART DEALER [address] [place] [address] Fatigue, unspecified type (Primary Dx); Positive test Social History Tobacco Use Types Packs/Day Years Used Date Smoking Tobacco: Some Days Cigarettes Passive Smoke Exposure: Past Smokeless Tobacco: Never Tobacco Cessation:Ready to Q uit: Not Asked; Counseling Given: No Alcohol Use Standard Drinks/Week Comments Not Currently 0 (1 standard drink = 0.6 oz pur e alcohol) social- rarely [facility] Utilities Answer Date Recorded In the [...] Date Recorded PHQ-2 Total Score 0 09/14/2024 [facility] [place] [facility] - Occupational Stress [...] things needed for daily living? No 05/31/2021 [facility] IP Transportation Answer D ate Recorded In the past 12 months, has l ack of reliable transportation kept you from medical appointments, meetings, work or from getting things needed for daily living? No 06/23/2024 Sexually Active Control Partners Comments Yes OCP Male Pill Comments Unknown Sex and Gender Information Value Date Recorded Sex Assigned at Not on file Legal Sex Female 5:15 AM EDT Gender Identity Not on file Sexual Orientation Not on file documented as of this encounter Last Filed Vital Signs Vital Sign Reading Time Taken Comments Blood Pressure 120/78 10/10/2024 10:55 AM EDT Pulse 74 10/10/2024 10:23 AM EDT Temperature 36.4 C (97.6 F) 10/10/2024 10:23 AM EDT Respiratory Rate 20 10/10/2024 10:23 AM EDT Oxygen Saturation 98% 10/10/2024 10:23 AM EDT Inhaled Oxygen Concentration - - Weight 93.2 kg (205 lb 6.4 oz) 10/10/2024 10:23 AM EDT Height 160 cm (5' 3 ) 10/10/2024 10:23 AM EDT Body Mass Index 36.38 10/10/2024 10:23 AM EDT documented in this encounter Functional [...] Chris Anne RN documented in this encounter Patient Instructions * Attachments The following attachments cannot be sent through Care Everywhere. * symptoms (Kyrgyz) documented in this encounter H&P Notes * Cheryl Giron, VINICIO - 10/10/2024 10:15 AM EDT Subjective: Patient ID: Roselyn Scruggs is a 24 y.o. female. Chief Complaint Patient presents with Nausea 1 month, nausea w/eating, fatigue, light headed, H/A (hx migraine), symptoms of low blood sugar HPI Patient is a very pleasant 24-year-old female presenting today with nausea, extreme fatigue, occasional headaches, intermittent lightheadedness. The patient states her symptoms have been present for about a month and she is just feeling unwell. The patient states that the nausea is most of the day,does seem to get worse with eating. She has been trying to stay hydrated with liquid IV. The lightheadedness is very brief and its typically with position changes and then resolves. She just feels extremely fatigued over the past month. Patient's last menstrual period was normal and was on September 11, 2024. She did have her IUD taken outin May. States that she and her fianc?? have been using plan b, and male contraception for prevention. She has not taken a test. Past medical history includes anemia with , GERD, IBS, PACs. Patient states that she does take omeprazole for the GERD and was supposed to be on a oral steroid for eosinophilic esophagitis but she has not been taking this. Past Medical History: Diagnosis Date Anemia with 2020 Anxiety disorder Arrhythmia Arthritis Depression Family history of Downs syndrome 08/24/2018 Pt's cousin GERD (gastroesophageal reflux disease) Headache migraines Heartburn Irritable bowel syndrome Post-operative nausea and vomiting with teeth extraction Past Surgical History: Procedure Laterality Date ABDOMEN SURGERY 12-23-23 Gallbladder removed CHOLECYSTECTOMY, LAPAROSCOPIC N/A 12/23/2023 LAPAROSCOPIC CHOLECYSTECTOMY; Surgeon: Esme Orozco MD; Location: [facility]IN OR; Service: General DENTAL SURGERY multiple [...] Stroke Neg Hx Anesth Problems Neg Hx Allergies Allergen Reactions Penicillins Rash Omnicef [Cefdinir] Rash Codeine Other (See Comments) Tylenol with Codeine, hyperactivity Current Outpatient Medications Medication Sig Dispense Refill budesonide (EOHILIA) 2 mg/10 mL Oral Suspension in Packet Take 2 mg by mouth 2 times daily. 60 Packet 1 omeprazole (PRILOSEC) 40 mg Oral Capsule, Delayed Release(E.C.) Take 1 Capsule by mouth 2 times daily. 180 Capsule 1 tirzepatide, weight loss, (ZEPBOUND) 2.5 mg/0.5 mL SubQ Pen Injector Inject 2.5 mg under the skin once a week. (Patient not taking: Reported on 10/10/2024) 2 mL 0 No current facility-administered medications for this visit. Immunization History Administered Date(s) Administered HPV 9 Valent 12/12/2016, 08/04/2019 Influenza Vaccine Quadrivalent PF 12/23/2018 PPD Test 08/12/2023 Rho (D) Immune Globulin 09/03/2016, 01/05/2019, 02/19/2019, 06/26/2020, 09/02/2020 Tdap 09/26/2016, 12/08/2018, 01/05/2019, 06/26/2020 Patient Active Problem List Diagnosis Paresthesia of left lower extremity Anxiety and depression Obesity, Class II, BMI 35-39.9 Bulging lumbar disc PTSD (post-traumatic stress disorder) Panic attack DDD (degenerative disc disease), lumbar Adult ADHD Calculus of gallbladder without cholecystitis without obstruction Calculus of gallbladder with chronic cholecystitis without obstruction Premature atrial contractions Abnormal LFTs Gastroesophageal reflux disease without esophagitis Patients past medical, family and social histories were reviewed and updated. There were no changesexcept as noted. Review of Systems Constitutional: Positive for fatigue. Gastrointestinal: Positive for nausea. Genitourinary: Negative for dysuria. Neurological: Positive for light-headedness and headaches. Objective: Vitals: 10/10/24 1023 10/10/24 1055 BP: 98/68 120/78 BP Location: Left arm Left arm Patient Position: Sitting Sitting Pulse: 74 Resp: 20 Temp: 97.6 ??F (36.4 ??C) TempSrc: Oral SpO2: 98% Weight: 205 lb 6.4 oz (93.2 kg) Height: 5' 3 (1.6 m) Body mass index is 36.38 kg/m??. Physical Exam Vitals and nursing note reviewed. Constitutional: General: She is not in acute distress. Appearance: Normal appearance. She is not ill-appearing, toxic-appearing or diaphoretic. Cardiovascular: Rate and Rhythm: Normal rate and regular rhythm. Heart sounds: Normal heart sounds. Pulmonary: Effort: Pulmonary effort is normal. Breath sounds: Normal breath sounds and air entry. Abdominal: General: Abdomen is flat. Bowel sounds are normal. Palpations: Abdomen is soft. Tenderness: There is no abdominal tenderness. Skin: General: Skin is warm and dry. Neurological: Mental Status: She is alert and oriented to person, place, and time. Psychiatric: Attention and Perception: Attention normal. Mood and Affect: Mood normal. Behavior: Behavior is cooperative. Results for orders placed or performed in visit on 10/10/24 POCT GLUCOSE Result Value Ref Range Glucose 103 60 - 200 MG/DL Lot Number Expiration Date SeriAl # Meter POCT URINE TELCOR Result Value Ref Range Preg Test, Ur Positive Assessment and Plan: Roselyn was seen today for nausea. Diagnoses and all orders for this visit: Fatigue, unspecified type - POCT GLUCOSE - POCT EKG - POCT URINE TELCOR Positive test - URINE CULTURE (NO STAIN); Future - AMB REFERRAL TO OB-GRAINER MACHINE EKG - sinus rhythm. No change from previous. Glucose 103. Positive test. States LMP 09/11. Will send for urine culture as to ensure no infection. No UTI symptoms. BP recheck okay. Offered orthostatics but patient declines. Stay hydrated - push fluids. Position changes move slowly. [place] diet with nausea. Small frequent meals. Milagro arsenio. begin vitamin with folic acid. Follow-up with PCP regarding current medications to see if these would need discontinued or changedwith . F/u with DRY CURER as soon as possible, especially if having continued nausea. Go to the ER with any severe worsening of symptoms: extreme lightheadedness, passing out, extreme nausea, abdominal pain etc. Patient verbalized understanding and denies questions. No follow-ups on file. documented in this encounter Miscellaneous Notes * Patient Instructions - Cheryl Giron APRN - 10/10/2024 10:15 AM EDT Stay hydrated - push fluids. Position changes move slowly. [place] diet with nausea. Small frequent meals. Milagro arsenio. Begin vitamin with folic acid. F/u with DRY CURER as soon as possible, especially if having continued nausea. Go to the ER with any severe worsening of symptoms: extreme lightheadedness, passing out, extreme nausea, abdominal pain etc. documented in this encounter Plan of Treatment Upcoming Encounters Date Type Department Care Team (Late st Contact Info) Description 11/16/2024 10:30 AM EDT Clinical Support [facility] [address] [place] [address] [place] [phone] 11/16/2024 11:00 AM EDT INITIAL VISIT [facility] [address] [place] [phone] 03/02/2025 1:30 PM EST Office Visit [facility] [address] [facility] [address] [place] [address] Gia Moctezuma, ART DEALER [address] [facility] [place] [address] Scheduled Referrals Name Type Priority Associated Diagnoses Orde r Schedule AMB REFERRAL TO OB-GRAINER MACHINE Outpatient Referral Routine Positive test Ordered: 10/10/2024 documented as of this encounter Goals Goal Patient Goal Type Associated Problems Recent Progress Patient-Stated? Author Maintain a healthy diet, exercise regularly and maintain an ideal body weight General No Sahra Steward Stay Tobacco Free Lifestyle No Nena Xavier documented as of this encounter Procedures Procedure Name Priority Date/Time Associated Diagnosis Comments URINE CULTURE (NO STAIN) Routine 10/10/2024 10:43 AM EDT Positive test POCT EKG Routine 10/10/2024 10:37 AM EDT Fatigue, unspecified type POCT URINE TELCOR Routine 10/10/2024 10:31 AM EDT Fatigue, unspecified type POCT GLUCOSE Routine 10/10/2024 10:24 AM EDT Fatigue, unspecified type documented in this encounter Results * URINE CULTURE (NO STAIN) (10/10/2024 10:43 AM EDT) Culture Multiple bacterial species isolated from urine consistent with urogenital commensal organisms. 10/12/2024 9:42 PM EDT [facility] Urine STRUCTURE OF URINARY TRACT PROPER / Unknown 10/10/2024 10:43 AM EDT 10/10/2024 10:43 AM EDT us Cheryl Giron APRN MICROBIOLOGY - GENERAL ORDER LAYNE Final Result [facility] [address] [place] [address] * POCT EKG (10/10/2024 10:37 AM EDT) 10/10/2024 10:3 7 AM EDT Impressions SEP OFFICE - 10/10/2024 11:21 AM EDT Sinus rhythm Cheryl Giron APRN POINT OF CARE CARDIOLOGY Fin al Result SEP OFFICE * POCT URINE TELCOR (10/10/2024 10:31 AM EDT) Preg Test, Ur Positive 10/10/2024 10:35 AM EDT [facility] Urine STRUCTURE OF URINARY TRACT PROPER / Unknown 10/10/2024 10:31 AM EDT 10/10/2024 10:35 AM EDT Cheryl Bree MOONEY POINT OF CARE TEST ORDERABLE S Final Result Performing Organization Address [facility] de Phone Number [facility] [address] [place] [address] * POCT GLUCOSE (10/10/2024 10:24 AM EDT) Glucose 103 60 - 200 MG/DL SEP OFFICE Lot Number SEP OFFICE Expiration Date SEP OFFICE SeriAl # SEP OFFICE Meter SEP OFFICE 10/10/2024 10:2 4 AM EDT Cheryl Breewill MOONEY POINT OF CARE TEST ORDERABLE S Final Result Performing Organization Address City/[facility] Co de Phone Number SEP OFFICE documented in this encounter Visit Diagnoses Diagnosis Fatigue, unspecified type- Primary Positive test examination or test, positive result documented in this encounter Care Teams Manager Animal Relationship Specialty Start Date End Date Diana Rachel DO [address] [place] [address] PCP - General Family Medicine 09/02/23 documented as of this encounter
--- OUTSIDE RECORDS SUMMARY | 2024-10-12 18:04 | XMS_ITS | Encounter Summary ---
Author Organization [facility] [place] [address] Care Team Providers Care Business Trainer Name Role Phone Diana Rachel DO Primary Care Provider + [phone] Reason for Visit * Reason Comments Emesis During pt reports she i s . unsure of how far along. pt reprots she was advised to come in and be evaluated if she couldn't keep fluids down. n/v Encounter Details Date Type Department Care Team (Late st Contact Info) Description 10/12/2024 6:04 PM EDT - 10/12/2024 9:28 PM EDT [facility] [place] [address] Jared Cason MD [address] [place] [phone] Nausea and vomiting in (Primary Dx) Discharge Disposition: Home or Self Care Social History Tobacco Use Types Packs/Day Years Used Date Smoking Tobacco: Some Days Cigarettes Passive Smoke Exposure: Past Smokeless Tobacco: Never Alcohol Use Standard Drinks/Week Comments Not Currently 0 (1 standard drink = 0.6 oz pur e alcohol) social- rarely C Utilities Answer Date Recorded In the past 12 months has th e electric, gas, oil, or water company threatened to shut off services in your home? No 06/23/2024 Overall Financial Resource Strain (CARDIA) Joe r Date Recorded How hard is it for you to pa y for the very basics like food, housing, medical care, and heating? Not hard at all 06/23/2024 PHQ-2 Answer Date Recorded PHQ-2 Total Score 0 09/14/2024 [facility] - Occupational Stress [...] things needed for daily living? No [facility]20[facility] IP Transportation Answer D ate Recorded [...] Sign Reading Time Taken Comments Blood Pressure 99/65 10/12/2024 8:00 PM EDT Pulse 73 10/12/2024 9:28 PM EDT Temperature 36.8 C (98.2 F) 10/12/2024 6:08 PM EDT Respiratory Rate 20 10/12/2024 9:28 PM EDT Oxygen Saturation 99% 10/12/2024 9:28 PM EDT Inhaled Oxygen Concentration - - Weight 93 kg (205 lb) 10/12/2024 6:08 PM EDT Height 160 cm (5' 3 ) 10/12/2024 6:08 PM EDT Body Mass Index 36.31 10/12/2024 6:08 PM EDT documented in this encounter Functional [...] 4:46 PM EDT Chris Anne RN * Suicide Severity Rating Answer Date of Assessment Author No Risk 10/12/2024 6:31 PM EDT Echo Whipple RN * Gray Suicide Severity Rating Scale (Q shift for moderate and high) Question Answer Date of Assessment Author 1. In the past month, have y ou wished you were or wished you could go to sleep and not wake up? 0 10/12/2024 6:31 PM EDT Echo Whipple RN 2. In the past month, have y ou actually had any thoughts of killing yourself? (If no, skip to question 6) 0 10/12/2024 6:31 PM EDT Echo Whipple RN 6. Have you ever done anythi ng, started to do anything, or prepared to do anything to end your life? 0 10/12/2024 6:31 PM EDT Echo Whipple RN documented as of this encounter Mental Status * Because of a physical, mental or emotional condition, does this person have serious difficulty concentrating, remembering or making decisions? Answer Entry Date Author No 06/23/2024 4:46 PM EDT Chris Anne RN documented in this encounter Discharge Instructions * Discharge Instructions* Doreen Mittal APRN - 10/12/2024 8:58 PM EDT Blood work is all reassuring. No evidence of dehydration or electrolyte abnormalities. No urinary tract infection. I did send prescription for Unisom/B6 but can be using combination in early for nausea and vomiting. If you still experience nausea and vomiting after this combination I also sent a medication called Zofran which is safe to use in early . Make sure drink plenty of hydrating fluids such as water, sugar-free Gatorade, propel, etc. Try to eat smaller more frequent meals if possible. Start bland and advance to normal as tolerated. Schedule follow-up with your QUALITY ANALYST as planned. Schedule for primary care as needed. Please return if worse. documented in this encounter Medications at Time of Discharge budesonide (EOHILIA) 2 mg/10 mL Oral Suspension in PacketIndications :Eosinophilic esophagitis Take 2 mg by mouth 2 times daily. 60 Packet 1 09/23/2024 Doxylamine Succinate 25 mg Oral Tablet Take 1 Tablet by mouth nightly for 14 days. 14 Tablet 10/12/2024 5 omeprazole (PRILOSEC) 40 mg Oral Capsule, Delayed Release(E.C.)Nora cations:GERD without esophagitis Take 1 Capsule by mouth 2 times daily. 180 Capsule 1 06/17/2024 ondansetron (ZOFRAN-ODT) 4 mg Oral Tablet, Rapid Dissolve Dissolve 1 Tablet by mouth every 6 hours as needed for Nausea for up to 30 days. 10 Tablet 10/12/2024 5 vit no.[id number] ( VITAMIN) 27 mg iron- 800 mcg Oral TabletIndications :, unspecified gestational age Take 1 Tablet by mouth daily. 90 Tablet 1 10/10/2024 pyridoxine, vitamin B6, (B-6) 25 mg Oral Tablet Take 1 Tablet by mouth 3 times daily for 14 days. 42 Tablet 10/12/2024 5 tirzepatide, weight loss, (ZEPBOUND) 2.5 mg/0.5 mL SubQ Pen InjectorIndicatio ns:Obesity, Class II, BMI 35-39.9 Inject 2.5 mg under the skin once a week. 2 mL 09/14/2024 documented as of this encounter Ordered Prescriptions Prescription Sig Dispense Quantity Refills Last Filled Start Date End Date pyridoxine, vitamin B6, (B-6) 25 mg Oral Tablet Take 1 Tablet by mouth 3 times daily for 14 days. 42 Tablet 10/12/2024 5 Doxylamine Succinate 25 mg Oral Tablet Take 1 Tablet by mouth nightly for 14 days. 14 Tablet 10/12/2024 5 ondansetron (ZOFRAN-ODT) 4 mg Oral Tablet, Rapid Dissolve Dissolve 1 Tablet by mouth every 6 hours as needed for Nausea for up to 30 days. 10 Tablet 10/12/2024 5 documented in this encounter Discharge Disposition Disposition Code Departure Means Destination Comment s Home or Self Alf documented in this encounter ED Notes * Doreen Mittal APRN - 10/12/2024 5:49 PM EDT Supervising physician, Dr. Cason CC: Chief Complaint Patient presents with Emesis During pt reports she is . unsure of how far along. pt reprots she was advised to come in and be evaluated if she couldn't keep fluids down. n/v HPI: Roselyn Scruggs is a 24 y.o. female with a past medical history significant for anxiety, depression,PTSD, elevated BMI, GERD, cholelithiasis who presents to the emergency department for evaluation ofnausea and vomiting and presumed early . Patient reports over the last menstrual cycle was09/11/2024. States that she went to a local urgent care earlier today and was told that her urine test was positive. She was told to come to the emergency department because she is not able to keep any fluids down and stated that they were concerned for dehydration. She describes a nonbloody and nonbilious emesis. No abdominal pain or pelvic pain. No change in bowel or bladder habits. No inappropriate vaginal discharge or inappropriate vaginal bleeding. History obtained via: Patient, electronic medical record review. ROS: All Pertinent ROS Negative Unless otherwise stated within HPI. VITALS: Vitals: 10/12/24 1750 10/12/24 1808 10/12/24 1848 10/12/24 1900 BP: 100/64 93/64 101/71 Pulse: 84 84 Resp: 16 16 Temp: 98.2 ??F (36.8 ??C) TempSrc: Oral SpO2: 100% 100% 100% 100% Weight: 205 lb (93 kg) Height: 5' 3 (1.6 m) 10/12/24192910/12/24194210/12/24195110/12/241999 BP: 97/67 96/66 99/65 Pulse: Resp: Temp: TempSrc: SpO2: 100% 100% 100% 100% Weight: Height: 10/12/24200510/12/242006 BP: Pulse: Resp: Temp: TempSrc: SpO2: 100% 100% Weight: Height: PHYSICAL EXAM: Physical Exam LABS/IMAGING: Reviewed (See Orders) No orders to display Abnormal Labs Reviewed HUMAN CHORIONIC GONADOTROPIN QUANTITATIVE - Abnormal; Notable for the following components: Result Value Hcg Quant 82,907 (*) All other components within normal limits Narrative: Female (non-): 0-4.9 mIU/mL Female (postmenopausal): 0-8.1 mIU/mL Indeterminate values for (e.g., 5-25 mIU/mL) may be confirmed with a repeat test in 48-72hours. Values in should double every 2-3 days for the first six weeks. Ingestion of miguelito doses of biotin (>5 mg/day) taken within 8 hours of drawing blood sample can interfere with this immunoassay test. CBC WITH DIFF - Abnormal; Notable for the following components: MPV 13.0 (*) All other components within normal limits COMPREHENSIVE METABOLIC PANEL - Abnormal; Notable for the following components: Sodium 135 (*) All other components within normal limits MEDICATIONS ADMINISTERED: Medications sodium chloride 0.9% syringe 5-10 mL (has no administration in time range) sodium chloride 0.9% IV line flush 50 mL (has no administration in time range) sodium chloride 0.9 % 1,000 mL IV bolus ( Intravenous Stopped 10/12/242054) ondansetron (ZOFRAN) injection 4 mg (4 mg Intravenous Given 10/12/241835) MEDICAL DECISION MAKING: Roselyn Scruggs is a 24 y.o. female who presents with nausea vomiting and suspected early as detailed in her HPI, Acute. Concerning for possible nausea and vomiting in early versusdehydration versus electrolyte abnormality. There is no abdominal pain or vaginal bleeding concerning for extrauterine or of unknown location. Peripheral IV access obtained. The patient was ordered for a liter normal saline and 4 mg of Zofran for initial management. EMR reviewed including urgent care note with recommendations to push hydrating fluids, position changes slowly, bland diet with small frequent meals, begin vitamin with folic acid, schedule follow-up with QUALITY ANALYST to establish with care and given ED precautions. Stable CBC, CMP, negative lipase, hCG quantitative 82,907, urine analysis unremarkable for any abnormal findings. Reviewed diagnostics directly with the patient. Patient reports symptom improvement with IV fluids and antiemetics in the emergency department. Will be discharged with Zofran, Unisom, B6 and encouraged to closely follow-up with QUALITY ANALYST to establish care. She tells me that she does have an ap pointment scheduled for November 04. Encouraged to call QUALITY ANALYST to discuss emergency department visit and improvement or lack thereof of symptoms to see if there is a sooner appointment available. She is agreeable. Encouraged supportive therapies including smaller meals at more frequent intervals, hydrating fluids. Given return precautions. Agreeable plan Care of patient discussed with nursing team and nursing documentation reviewed. Prescriptions Written: ED Current Prescriptions Medication Dispense Auth. Provider ondansetron (ZOFRAN-ODT) 4 mg Oral Tablet, Rapid Dissolve 10 Tablet Doreen Mittal APRN Doxylamine Succinate 25 mg Oral Tablet 14 Tablet Doreen Mittal APRN pyridoxine, vitamin B6, (B-6) 25 mg Oral Tablet 42 Tablet Doreen Mittal APRN IMPRESSION: 1. Nausea and vomiting in DISPOSITION: Discharge Condition at Discharge/Transfer from Department: Improved In cases where narcotics are prescribed, BRAD report was obtained, reviewed, and made part of record. After examining available information, and risks of prescribing or dispensing controlled substances was explained to the patient (including non-treatment or other treatment), it is considered medically appropriate to administer narcotics as prescribed. Doreen Mittal NP Emergency Medicine 10/12/24 This chart was completed using voice recognition technology and may contain unintended errors Doreen Mittal APRN 10/12/242133 Cosigned by Jared Cason MD at 10/12/2024 9:54 PM EDT Associated attestation - Jared Cason MD - 10/12/2024 9:54 PM EDT This patient was seen in coordination with the [facility]. I have reviewed the chief complaint, HPI, and the history sections for this patient. I have reviewed the pertinent clinical information including physical exam, labs, radiographic studies and the plan. I have participated in the care of this patient and performed the substantive portion of the MDM. documented in this encounter Plan of Treatment Upcoming Encounters Date Type Department Care Team (Late st Contact Info) Description 11/16/2024 10:30 AM EDT Clinical Support [facility] [address] [place] [phone] 11/16/2024 11:00 AM EDT INITIAL VISIT [facility] [address] [place] [phone] 03/02/2025 1:30 PM EST Office Visit [facility] [address] [facility] [address] [place] [address] Gia Moctezuma APRN [address] [facility] [place] [facility] [place] [address] documented as of this encounter Goals Goal Patient Goal Type Associated Problems Recent Progress Patient-Stated? Author Maintain a healthy diet, exercise regularly and maintain an ideal body weight General No Sahra Steward Stay Tobacco Free Lifestyle No Nena Xavier documented as of this encounter Procedures Procedure Name Priority Date/Time Associated Diagnosis Comments URINALYSIS REFLEX STAT 10/12/2024 8:4 3 PM EDT UA W/REFLEX TO CULTURE STAT 8:43 PM EDT EXTRA JENNINGS URINE CX STAT 10/12/2024 8 :43 PM EDT CBC WITH DIFF STAT 10/12/2024 6:37 PM EDT HUMAN CHORIONIC GONADOTROPIN QUANTITATIVE STAT 10/12/2024 6:37 PM EDT LIPASE LEVEL STAT 10/12/2024 6:37 PM EDT COMPREHENSIVE METABOLIC PANEL STAT 10/12/2024 6:37 PM EDT documented in this encounter Results * EXTRA JENNINGS URINE CX (10/12/2024 8:43 PM EDT) Urine STRUCTURE OF URINARY TRACT PROPER / Unknown 10/12/2024 8:43 PM EDT 10/12/2024 8:47 PM EDT Jared Cason MD MICROBIOLOGY - GENERAL ORDERA BLES Final Result Performing Organization Address City/State/[facility] Co de Phone Number [place] [phone] * URINALYSIS REFLEX (10/12/2024 8:43 PM EDT) UA Color Light Yellow 10/12/2024 8:52 PM EDT [facility] UA Appear Clear Clear 10/12/2024 8:52 PM EDT [facility] UA Glucose Negative Negative mg/dL 10/12/2024 8:52 PM EDT [facility] UA Ketones Negative Negative mg/dL 10/12/2024 8:52 PM EDT [facility] UA Blood Negative Negative 10/12/2024 8:52 PM EDT [facility] UA pH 6.5 5.0 - 8.0 pH 10/12/2024 8:52 PM EDT [facility] UA Protein Negative Negative mg/dL 10/12/2024 8:52 PM EDT [facility] UA Urobilinogen Normal <=1 mg/dL 8:52 PM EDT [facility] UA Bili Negative Negative 10/12/2024 8:52 PM EDT [facility] UA Nitrite Negative Negative 10/12/2024 8:52 PM EDT [facility] UA Leuk Est Negative Negative 10/12/2024 8:52 PM EDT [facility] UA Spec Grav 1.012 1.001 - 1.035 no units 10/12/2024 8:52 PM EDT [facility] Comment:Reference range salty d for random specimens only. Urine STRUCTURE OF URINARY TRACT PROPER / Unknown 10/12/2024 8:43 PM EDT 10/12/2024 8:47 PM EDT Jared Cason MD URINE ORDERABLES Final Result [facility] [address] [facility] , [place] [address] * (ABNORMAL) COMPREHENSIVE METABOLIC PANEL (10/12/2024 6:37 PM EDT) Sodium 135(L) 136 - 145 mmol/L 10/12/2024 7:09 PM EDT [facility] Potassium 4.0 3.5 - 5.0 mmol/L 10/12/2024 7:09 PM EDT [facility] Chloride 100 98 - 107 mmol/L 10/12/2024 7:09 PM EDT [facility] Total CO2 22 22 - 29 mmol/L 10/12/2024 7:09 PM EDT [facility] Anion Gap 13 7 - 16 mmol/L 10/12/2024 7:09 PM EDT [facility] Calcium 9.0 8.6 - 10.4 mg/dL 10/12/2024 7:09 PM EDT [facility] Glucose Lvl 84 70 - 99 mg/dL 10/12/2024 7:09 PM EDT [facility] BUN 7 6 - 20 mg/dL 10/12/2024 7:09 PM EDT [facility] Creatinine 0.60 0.51 - 1.30 mg/dL 10/12/2024 7:09 PM EDT [facility] Albumin 4.1 3.5 - 5.2 gm/dL 10/12/2024 7:09 PM EDT [facility] Total Protein 7.1 6.4 - 8.3 gm/dL 10/12/2024 7:09 PM EDT [facility] Bili Total 0.3 0.2 - 1.3 mg/dL 10/12/2024 7:09 PM EDT [facility] ALT 28 <=41 U/L 10/12/2024 7:09 PM EDT [facility] AST 19 <=40 U/L 10/12/2024 7:09 PM EDT [facility] Alk Phos 88 36 - 123 U/L 10/12/2024 7:09 PM EDT [facility] eGFR (CKD-EPIcr 2020) 128 >=60 mL/min/1.7 3 m2 10/12/2024 7:09 PM EDT [facility] Comment:Estimated GFR was ca lculated using the CKD-EPIcr (2020) equation refit without race. The equation is recommended by the National Kidney Foundation - [place] [employer] of Nephrology Task Force. Blood VENOUS BLOOD / Unknown Venipuncture / Unknown 10/12/2024 6:37 PM EDT 10/12/2024 6:45 PM EDT us Jared Cason MD CHEMISTRY ORDERABLES Final Re sult [facility] [address] [place] [address] * LIPASE LEVEL (10/12/2024 6:37 PM EDT) Lipase Lvl 39 13 - 60 U/L 10/12/2024 7:09 PM EDT [facility] Blood VENOUS BLOOD / Unknown Venipuncture / Unknown 10/12/2024 6:37 PM EDT 10/12/2024 6:45 PM EDT us Jared Cason MD CHEMISTRY ORDERABLES Final Re sult [facility] [address] [place] [address] * (ABNORMAL) CBC WITH DIFF (10/12/2024 6:37 PM EDT) WBC 8.6 3.7 - 10.3 x10(3)/mcL 10/12/2024 6:50 PM EDT [facility] RBC 4.46 3.90 - 5.20 x10(6)/mcL 10/12/2024 6:50 PM EDT [facility] Hgb 12.6 11.2 - 15.7 g/dL 10/12/2024 6:50 PM EDT [facility] Hct 37.0 34.0 - 45.0 % 10/12/2024 6:50 PM EDT [facility] MCV 83.0 80.0 - 100.0 fL 10/12/2024 6:50 PM EDT [facility] MCH 28.3 26.0 - 34.0 pg 10/12/2024 6:50 PM EDT [facility] MCHC 34.1 30.7 - 35.5 g/dL 10/12/2024 6:50 PM EDT [facility] RDW 12.1 <=14.9 % 10/12/2024 6:50 PM EDT [facility] Platelet 215 155 - 369 x10(3)/mcL 10/12/2024 6:50 PM EDT [facility] MPV 13.0(H) 8.8 - 12.5 fL 10/12/2024 6:50 PM EDT [facility] Neut Percent 63.3 % 10/12/2024 6:50 PM EDT [facility] Comment:Neutrophils equals s egs plus bands Imm Gran% 0.2 % 10/12/2024 6:50 PM EDT [facility] Comment:Automated count of m etamyelocytes, myelocytes and promyelocytes. Lymph Percent 27.3 % 10/12/2024 6:50 PM EDT [facility] Garvin Percent 7.1 % 10/12/2024 6:50 PM EDT [facility] Eos Percent 1.9 % 10/12/2024 6:50 PM EDT [facility] Baso Percent 0.2 % 10/12/2024 6:50 PM EDT [facility] Neut # 5.4 1.6 - 6.1 x10(3)/[facility] 10/12/2024 6:50 PM EDT [facility] Comment:Neutrophils equals s egs plus bands IMMGRAN# 0.0 0.0 - 0.1 x10(3)/mcL 10/12/2024 6:50 PM EDT [facility] Comment:Automated count of m etamyelocytes, myelocytes and promyelocytes. An absolute IG <0.1 is reported as 0.0. Lymph # 2.3 1.2 - 3.9 x10(3)/mcL 10/12/2024 6:50 PM EDT [facility] Garvin # 0.6 0.3 - 0.9 x10(3)/mcL 10/12/2024 6:50 PM EDT [facility] Eos# 0.2 0.0 - 0.5 x10(3)/[facility] 10/12/2024 6:50 PM EDT [facility] Baso # 0.0 0.0 - 0.1 x10(3)/[facility] 10/12/2024 6:50 PM EDT [facility] Blood VENOUS BLOOD / Unknown Venipuncture / Unknown 10/12/2024 6:37 PM EDT 10/12/2024 6:45 PM EDT us Jared Cason MD HEMATOLOGY ORDERABLES Final R esult [facility] [address] [place] [address] * (ABNORMAL) HUMAN CHORIONIC GONADOTROPIN QUANTITATIVE (10/12/2024 6:37 PM EDT) Hcg Quant 82,907(H) <5 mIU/mL 10/12/2024 7:23 PM EDT [facility] Blood VENOUS BLOOD / Unknown Venipuncture / Unknown 10/12/2024 6:37 PM EDT 10/12/2024 6:45 PM EDT Narrative [facility] - 10/12/2024 7:23 PM EDT Female (non-): 0-4.9 mIU/mL Female (postmenopausal): 0-8.1 mIU/mL Indeterminate values for (e.g., 5-25 mIU/mL) may be confirmed with a repeat test in 48-72 hours. Values in should double every 2-3 days for the first six weeks. Ingestion of miguelito doses of biotin (>5 mg/day) taken within 8 hours of drawing blood sample can interfere with this immunoassay test. us Jared Cason MD CHEMISTRY ORDERABLES Final Re sult [facility] [address] [place] [address] documented in this encounter Visit Diagnoses Diagnosis Nausea and vomiting in - Primary Unspecified vomiting of , unspecified as to episode of care documented in this encounter Administered Medications Inactive Administered Medications - up to 1 most recent administrations Medication Order MAR Action Action Date Dose Rate Site ondansetron (ZOFRAN) injection 4 mg 4 mg, Intravenous, ONCE, 1 dose, On Thu10/12/24 at 1815 Given 10/12/2024 6:36 PM EDT 4 mg sodium chloride 0.9 % 1,000 mL IV bolus Intravenous, ONCE, 1 dose, On Thu10/12/24 at 1815, at 983.6 mL/hr IV Started 10/12/2024 6:46 PM EDT 983.6 mL/hr sodium chloride 0.9% IV line flush 50 mL 50 mL, Intravenous, at 999 mL/hr, PRN, Starting on Thu10/12/24 at 1813, Until Claudia 10/13/24 at 0134, Line Care, Flush with 50 mL after IVPB to insure complete administration of the dose. May use the saline infusion to back flush IVPB tubing as needed., Use this order to document priming and flushing IV line after medication administration. sodium chloride 0.9% syringe 5-10 mL 5-10 mL, Intravenous, PRN, Starting on Thu10/12/24 at 1813, Until Claudia 10/13/24 at 0134, Line Care, Flush with 5 mL saline pre/post IVP, and 5 mL prior to IVPB or blood product administration. Protocol for PERIPHERAL IV saline lock maintenance, flush with 3-5 mL saline syringe every 8 hours., Flush peripheral lines every 12 hours, central lines every 8 hours, and after IV medication documented in this encounter Active and Recently Administered Medications Times are shown in EDT. Scheduled Medication Order 10/10/2024 10/11/2024 10/12/2024 ondansetron (ZOFRAN) injection 4 mg (COMPLETED) 4 mg, Intravenous, ONCE, 1 dose, On Thu10/12/24 at 1815 1836 (Given - Provid er: Echo Whipple RN) sodium chloride 0.9 % 1,000 mL IV bolus (COMPLETED) Intravenous, ONCE, 1 dose, On Thu10/12/24 at 1815, at 983.6 mL/hr 1846 (IV Started - P rovider: Nestor Vásquez RN)2054 (Stopped - Provider: Falguni Fong RN) PRN Medication Order 10/10/2024 10/11/2024 10/12/2024 sodium chloride 0.9% IV line flush 50 mL 50 mL, Intravenous, at 999 mL/hr, PRN, Starting on Thu10/12/24 at 1813, Until Claudia 10/13/24 at 0134, Line Care, Flush with 50 mL after IVPB to insure complete administration of the dose. May use the saline infusion to back flush IVPB tubing as needed., Use this order to document priming and flushing IV line after medication administration. sodium chloride 0.9% syringe 5-10 mL 5-10 mL, Intravenous, PRN, Starting on Thu10/12/24 at 1813, Until Claudia 10/13/24 at 0134, Line Care, Flush with 5 mL saline pre/post IVP, and 5 mL prior to IVPB or blood product administration. Protocol for PERIPHERAL IV saline lock maintenance, flush with 3-5 mL saline syringe every 8 hours., Flush peripheral lines every 12 hours, central lines every 8 hours, and after IV medication documented in this encounter Orders Medications Ordered That Eddy ht Not Have Been Administered Count Last Ordered Date First Ordered Date sodium chloride 0.9% IV line flush 50 mL 1 10/12/2024 sodium chloride 0.9% syringe 5-10 mL 1 09/24 documented in this encounter Care Teams Business Trainer Relationship Specialty Start Date End Date Diana Rachel DO [employer] [place] [phone] PCP - General Family Medicine 09/02/23 documented as of this encounter
[2024-10-16 17:12] VITALS: BP 126/79; PULSE 78; RESP 16; TEMP 37.1; O2SAT 100; BMI 36.3
--- OUTSIDE RECORDS SUMMARY | 2024-10-16 17:14 | XMS_ITS | Clinical Summary ---
Author Organization JOSE COELLOELDER OD Address [address] [facility] [address] [place], [place] [address] Phone Care Team Providers Care Professor Of Law Name Role Phone Diana Rachel DO Primary Care Provider + [phone] Allergies Active Allergy Reactions Criticality Noted Date Comments Codeine Other (See Comments) Low 02/01/2013 Tylenol with Codeine, hyperactivity Cefdinir Rash Medium 11/08/2016 Penicillins Rash High 09/16/2022 Medications * This document contains information received from the source organization and may not represent a complete record from that organization. omeprazole (PRILOSEC) 40 mg Oral Capsule, Delayed Release(E.C.)Ind ications:GERD without esophagitis Take 1 Capsule by mouth 2 times daily. 180 Capsule 1 5 Active tirzepatide, weight loss, (ZEPBOUND) 2.5 mg/0.5 mL SubQ Pen InjectorIndicati ons:Obesity, Class II, BMI 35-39.9 Inject 2.5 mg under the skin once a week. 2 mL 5 Active Additional Information Patient not taking.Reason: Too expensive, Reported on 10/10/2024 budesonide (EOHILIA) 2 mg/10 mL Oral Suspension in PacketIndication s:Eosinophilic esophagitis Take 2 mg by mouth 2 times daily. 60 Packet 1 5 Active vit no.[id number] c ( VITAMIN) 27 mg iron- 800 mcg Oral TabletIndication s:, unspecified gestational age Take 1 Tablet by mouth daily. 90 Tablet 1 5 Active ondansetron (ZOFRAN-ODT) 4 mg Oral Tablet, Rapid Dissolve Dissolve 1 Tablet by mouth every 6 hours as needed for Nausea for up to 30 days. 10 Tablet 5 11/12/19 25 Active Doxylamine Succinate 25 mg Oral Tablet Take 1 Tablet by mouth nightly for 14 days. 14 Tablet 5 10/27/19 25 Active pyridoxine, vitamin B6, (B-6) 25 mg Oral Tablet Take 1 Tablet by mouth 3 times daily for 14 days. 42 Tablet 5 10/27/19 25 Active Active Problems Problem Noted Date Diagnosed Date Abnormal LFTs 06/23/2024 Gastroesophageal reflux disease without esophagi tis 06/23/2024 Premature atrial contractions 01/27/2024 Overview (01/27/2024): Referred to electrophysiology Assessment & Plan (03/12/2024 10:16 AM EST): Orders: POCT EKG HM HOLTER MONITOR RECORDING AND ANALYSIS; Future Assessment & Plan (01/27/2024 2:02 PM EST): Reviewed emergency room note. Reviewed EKG from an office visit today. Also reviewed electrophysiology note from earlier this year and compared to EKGs from earlier this year. Given ongoing symptoms encouraged patient to follow back up with electrophysiology and obtain the echo that was previously ordered. Discussed the likelihood that the symptoms will recur if they are related. Will reach out to electrophysiology to discuss Calculus of gallbladder with chronic cholecystitis without obstruction 12/17/2023 Calculus of gallbladder with out cholecystitis without obstruction 12/02/2023 Assessment & Plan (12/03/2023 12:59 PM EDT): Patient reports pain intermittently with meals After discussion patient would like referral for possible removal Orders: AMB REFERRAL TO GENERAL SURGERY Adult ADHD 09/02/2023 Assessment & Plan (01/27/2024 2:02 PM EST): Orders: buPROPion (WELLBUTRIN XL) 150 mg Oral Tablet Sustained Release 24 hr; Take 1 Tablet by mouth every morning. Assessment & Plan (09/02/2023 11:56 AM EDT): We will try Wellbutrin for combination of reported ADHD symptoms, anxiety and depression DDD (degenerative disc disease), lumbar 04/27/19 24 Panic attack 09/12/2022 Overview (09/12/2022): Recommend restarting trazodone with PRN use of vistaril. Consider mood stabilizer if sx continue. PTSD (post-traumatic stress disorder) 08/29/2021 Bulging lumbar disc 06/12/2021 Overview (02/26/2023): L5-S1 w/ right sciatica Recommend nsaids, flexeril, sciatica stretching twice a day with referral to spine. Anxiety and depression 01/04/2021 Overview (02/26/2023): Extreme mood changes, implusive- possible bipolar. Previous diagnosis of ADHD which could also be contributing to implusive behavior. In counseling. Has been referred to psych in past but never followed up. Tried zoloft and viibryd in past, not effective effexor not effective. prozac caused SI. Assessment & Plan (05/11/2024 1:48 PM EDT): Will start Lexapro and follow-up in a few weeks for medication dose adjustment Orders: escitalopram oxalate (LEXAPRO) 10 mg Oral Tablet; Take 1 Tablet by mouth daily. Assessment & Plan (09/02/2023 11:55 AM EDT): History of multiple medication failures in the past We will try Wellbutrin for combination of reported ADHD symptoms, anxiety and depression If Wellbutrin is not effective consider pharmacogenetics testing and/or mood stabilizer Assessment & Plan (08/19/2023 11:03 AM EDT): Increase celexa dose to 40mg today Follow up in a few weeks Assessment & Plan (07/23/2023 4:10 PM EDT): Reviewed pharmacogenetics report from when patient was younger that she had on her phone today. Celexa appears to be in category of normal dosing and metabolization. Will start Celexa increase dose as needed in 4 weeks Assessment & Plan (02/26/2023 9:43 AM EST): Reviewed genesight report w/ pt. Will treat with pristiq, continue vistaril PRN with followup in 4-6 weeks. Assessment & Plan (09/12/2022 12:00 PM EDT): Stopped viibryd because she felt ill. Doesn't want to restart at this time. Sent in trazodone and vistaril to help manage sx. Assessment & Plan (09/17/2021 3:17 PM EDT): she brought her genesight report with her today that was completed in 2014. reviewed enzyme activity. recommend viibryd based off of these results. consider adding low dose seroquel at next visit. she is also wanting to restart ADHD meds. aware that we do not manage adult ADHD and that she will need to re-establish with psych for this. she was given referral today and really encouraged follow-up for management of all psychiatric conditions. Assessment & Plan (08/29/2021 9:38 AM EDT): plan to titrate up prozac to high dose and consider adding low dose abilify or vraylar. She will followup in 4-6 weeks for med check and adjustment if needed Obesity, Class II, BMI 35-39.9 01/04/2021 Overview (01/04/2021): Diet/exercise. Assessment & Plan (09/14/2024 10:42 AM EDT): Reviewed and discussed diet and exercise habits Reviewed and discussed calorie intake, nutrition, water intake Will try to obtain and start zepbound Orders: tirzepatide, weight loss, (ZEPBOUND) 2.5 mg/0.5 mL SubQ Pen Injector; Inject 2.5 mg under the skin once a week. Paresthesia of left lower extremity 09/02/2020 Resolved Problems Problem Noted Date Diagnosed Date Resolved Date Pelvic mass 06/12/2021 05/14/2023 Overview (07/18/2021): 13 cm mass, incidental finding on lumbar MRI Not visible on pelvic ultrasound Recommend abdominal/pelvic ct to better locate. Encounter for initial prescr iption of contraceptive pills 01/04/2021 05/14/2023 Assessment & Plan (01/04/2021 10:58 AM EST): No contraindications - mom did have a blood clot during a but says she does not have a hematology disorder. Aware of increasing blood clot risk with smoking and obesity. Encouraged healthy lifestyle Vapes nicotine containing substance 01/04/2021 05/14/2023 Overview (01/04/2021): Encouraged cessation Encounter for suspected PROM , with rupture of membranes not found 09/01/2020 01/04/2021 Uterine contractions during 09/01/2020 01/04/2021 Normal labor 09/01/2020 01/04/2021 (normal spontaneous vaginal delivery) 09/01/2020 01/04/2021 Overview (09/01/2020): VFI Annabeth Bottle anxiety 09/01/2020 Overview (09/01/2020): Rx Zoloft 25 mg HS initiated PPD0 w g3 delivery. 38 weeks gestation of 08/31/2020 01/04/2021 NST (non-stress test) reactive 08/27/2020 01/04/2021 37 weeks gestation of 08/27/2020 01/04/2021 Uterine cramping 08/16/2020 01/04/2021 Maternal iron deficiency ane shirlene affecting in third trimester, antepartum 06/21/2020 01/04/2021 Overview (06/21/2020): Ferrous sulfate 325 mg bid Encounter for supervision of normal , antepartum 02/28/2020 01/04/2021 Overview (08/16/2020): CNM pt GS:requested-->referral placed DOMINGUEZ by LMP (US @ 8 wks c/w LMP DOMINGUEZ) PNL's nml Anatomy u/s: Anterior placenta; 3VC, NL anatomy Girl Annabeth GCT-nml S/p TDaP Pre-registration completed GBS: neg Short interval between pregn ancies affecting , antepartum 02/28/2020 01/04/2021 Overview (02/28/2020): 01/2019 Family history of Downs syndrome 08/24/2018 08/04/2019 Overview (08/24/2018): Pt's cousin Urinary tract infection with hematuria 11/25/2016 08/24/2018 Overview (11/25/2016): 11/25 Urine was not sent for culture and pt still continues to have pain with urination and low grade fevers after augmentin Will send Cipro 500 BID x 7 days and urine sent for culture fever 11/09/2016 08/24/2018 (spontaneous vaginal delivery) 11/05/2016 11/25/2016 Overview (11/05/2016): Female Shruthi LRD Anemia affecting in third trimester 10/11/19 17 11/25/2016 Overview (10/10/2016): FE BID @ 28 wks First in adolescen t 16 years of age or older in second trimester 07/25/2016 11/25/2016 Overview (08/22/2016): CNM pt It's a GIRL Shruthi PNLs NML Quad:too late w entry into pnc Rh negative state in antepartum period 07/25/2016 01/04/2021 Overview (06/28/2020): RhiG @ 28 wks---> 06/26/20 Large for dates 07/25/2016 08/22/2016 Encounter for supervision of normal first in first trimester 07/24/2016 08/22/2016 Unsure of LMP (last menstrua l period) as reason for ultrasound scan 07/24/2016 11/06/2016 Overview (07/31/2016): 25 0/7 DOMINGUEZ 11/11/16 3 VC, anterior Encounters Date Type Department Care Team Description 10/12/2024 6:04 PM EDT - 10/12/2024 9:28 PM EDT Emergency [facility] [address] Jared Cason MD Nausea and vomiting in (Primary Dx) Discharge Disposition: Home or Self Care 10/12/2024 Results Follow-Up [address] [phone] Ghassan Summers PA-C URINE CULTURE (NO STAIN) 10/12/2024 Nurse Triage [facility] Nurse Now [address] [place] [address] Will Gentile RN 10/10/2024 10:15 AM EDT Office Visit [address] [address] Cheryl Giron APRN Fatigue, unspecified type (Primary Dx); Positive test 10/10/2024 Orders Only SEP Christian[facility] [place] [address] Diana Rachel, DO , unspecified gestational age (Primary Dx) 10/10/2024 Telephone [facility] [address] [place] [address] Diana Rachel, Orders ( vitamins) 09/23/2024 Results Follow-Up [facility] [address] [place] [facility] [place] [address] Kraig Andrade MD [facility] ORDER 09/16/2024 12:09 PM EDT - 09/16/2024 11:59 PM EDT Hospital Encounter [facility] [address] [place] [address] Kraig Andrade MD Gastroesophageal reflux disease with esophagitis without hemorrhage Discharge Disposition: Home or Self Care 09/15/[address] [place], [place] [address] Diana Rachel DO Medication Management (Med change requested- please advise. ) 09/14/2024 2:28 PM EDT - 09/14/2024 11:59 PM EDT Hospital Encounter [facility] [address] [place] [address] Click, [facility] Elevated liver enzymes Discharge Disposition: Home or Self Care 09/14/2024 2:00 PM EDT Office Visit [facility] [address] [place] [address] Kraig Andrade MD Gastroesophageal reflux disease with esophagitis without hemorrhage (Primary Dx); Esophageal dysphagia; Elevated liver enzymes; Choledocholithiasis 09/14/2024 10:00 AM EDT Office Visit [address] [place], [place] [phone] Diana Rachel DO Obesity, Class II, BMI 35-39.9 (Primary Dx); Diabetes mellitus screening 09/14/2024 Results Follow-Up [facility] [address] [place] [address] Kraig Andrade MD COMPREHENSIVE METABOLIC PANEL 09/14/2024 Results Follow-Up [address] [place] [phone] Diana Rachel DO HEMOGLOBIN A1C 09/14/2024 Telephone [facility] [address] [place] [address] Brenda Burgess RN Medication Question 09/05/2024 Travel 09/01/2024 2:45 PM EDT Office Visit [address] [address] Mian Alvarez MD Patellar tendinitis of left knee (Primary Dx) 08/27/2024 12:00 PM EDT [address]illary Procedure [facility] [address] [place] [address] Qiana Dominguez, Acute pain of left knee 08/15/2024 2:30 PM EDT Office Visit [facility] [address] [facility] [address] [place] [address] Cassia Samson MD PAC (premature atrial contraction) (Primary Dx) 08/15/[address] [address] Jet Simmons MD 08/11/2024 9:45 AM EDT Office Visit [address] [address] Qiana Dominguez DO Acute pain of left knee (Primary Dx); Instability of left knee joint 08/05/2024 10:13 AM EDT - 08/05/2024 11:19 AM EDT Emergency [facility] [address] [place] [address] Tam Posada MD Acute pain of left knee (Primary Dx) Discharge Disposition: Home or Self Care 08/01/2024 11:20 AM EDT Clinical Support CARLOS EDUARDO [place] [facility] [address] [place] [address] Adrianna Shelby Possible 08/01/2024 Results Follow-Up CARLOS EDUARDO [place] [facility] [address] [place] [address] Diana Rachel DO HUMAN CHORIONIC GONADOTROPIN QUANTITATIVE 08/01/2024 Telephone CARLOS EDUARDO [place] [facility] [address] [place] [phone] Diana Rachel DO Orders ( test ) 07/28/2024 Travel from Last 3 Months Immunizations Immunization Administration Dates Next Due HPV 9 Valent 08/04/2019,12/12/2016 Influenza Vaccine Quadrivalent PF 12/23/2018 PPD Test 08/12/2023 Rho (D) Immune Globulin 09/02/2020,06/26,02/19/2019, 9,09/03/2016 Tdap 06/26/2020, 9,12/08/2018, 7(Deferred: - got in September),09/26/2016 Surgical History Surgery Date Site/Laterality Comments TONSILLECTOMY AND ADENOIDECTOMY TYMPANOSTOMY TUBE PLACEMENT DENTAL SURGERY multiple teeth extracted CHOLECYSTECTOMY, LAPAROSCOPIC 12/23/2023 Abdomen/N/A LAPAROSCOPIC CHOLECYSTECTOMY; Surgeon: Esme Orozco MD; Location: [facility]IN [facility]; Service: General ABDOMEN SURGERY 12-23-23 Gallbladder removed Medical History Medical History Date Comments Heartburn Family history of Downs syndrome 08/24/2018 Pt's cousin Anemia with 2020 pregna ncy Irritable bowel syndrome Arthritis Headache migraines Depression Anxiety disorder Post-operative nausea and vomiting with teeth extraction Arrhythmia GERD (gastroesophageal reflux disease) Family History Medical History Relation Name Comments No Known Problems Daughter 1 No Known Problems Daughter 2 No Known Problems Daughter 3 No Known Problems Father Arthritis Maternal Grandfather Jignesh Diabetes Maternal Grandfather Jignesh High Blood Pressure Maternal Grandfather Jignesh High Cholesterol Maternal Grandfather Jignesh No Known Problems Maternal Grandmother Arthritis Mother Sandra Sjogren's Syndrome Mother Sandra blood clot Mother Sandra Diabetes Paternal Grandfather Brain Heart Disease Paternal Grandfather Brain Heart disease No Known Problems Paternal Grandmother Anesth Problems Neg Hx Breast Cancer Neg Hx Cancer Neg Hx Colon Cancer Neg Hx Eclampsia Neg Hx Hypertension Neg Hx Ovarian Cancer Neg Hx Labor Neg Hx Spont Abortions Neg Hx Stroke Neg Hx Relation Name Status Comments Daughter 1 Alive Daughter 2 Alive Daughter 3 Alive Father Alive Maternal Grandfather Jignesh Alive Maternal Grandmother Alive Mother Sandra Alive Paternal Grandfather Brain Alive Paternal Grandmother Alive Social History Tobacco Use Types Packs/Day Years Used Date Smoking Tobacco: Some Days Cigarettes Passive Smoke Exposure: Past Smokeless Tobacco: Never Tobacco Cessation:Ready to Q uit: Not Asked; Counseling Given: No Alcohol Use Standard Drinks/Week Comments Not Currently 0 (1 standard drink = 0.6 oz pur e alcohol) social- rarely [employer] Utilities Answer Date Recorded In the past 12 months has [employer] electric, gas, oil, or water [employer] threatened to shut off services in your home? No 06/23/2024 Overall Financial Resource Strain (CARDIA) Answe r Date Recorded How hard is it for you to pa y for the very basics like food, housing, medical care, and heating? Not hard at all 06/23/2024 PHQ-2 Answer Date Recorded PHQ-2 Total Score 0 09/14/2024 [facility] - Occupational Stress [...] things needed for daily living? No 05/31/2021 [facility] IP Transportation Answer D ate Recorded In [...] on file Sexual Orientation Not on file Obstetrics History Para Term AB IAB SAB Ectopic Multiple Livin g Live Births 3 3 3 3 3 Date Outcome GA Total Labor Labor/2nd/3rd Weight Sex Type Anes PTL Jessica A1 A5 Name Clin 2016 Term 39w 1d 0h 03m 0h 03m 7 lb 14 oz (3.572 kg) F Vag-S pont Epidur al N Livin g 8 9 LATHA R,SHARON MILLER GIRL Downto n, Rosie Zara, CNM Delivery Location:[facility] 2018 Term 39w 1d 0h 03m 0h 03m 7 lb 10.8 oz (3.48 kg) F Vag-S pont Epidur al N Livin g 8 9 LATHA R,SHARON MILLER GIRL Downto n, Rosie Zara, CNM Delivery Location:[facility] ([facility]) 2020 Term 38w 4d 0h 07m 0h 07m 7 lb 13.6 oz (3.56 kg) F Vag-S pont Epidur al N Livin g 8 9 MARLENE Y,SHARON MILLER BABY Corky , Alison Francon, CNM Delivery Location:[facility] ([facility]) Comments:no anomalies noted Last Filed Vital Signs Vital Sign Reading [...] Mass Index 36.31 10/12/2024 6:08 PM EDT Plan of Treatment Upcoming Encounters Date Type Department Care Team (Late st Contact Info) Description 11/16/2024 10:30 AM EDT Clinical Support [facility] [address] [place] [phone] 11/16/2024 11:00 AM EDT INITIAL VISIT [facility] [address] [place] [phone] 03/02/2025 1:30 PM EST Office Visit [facility] [address] [facility] [address] [place] [address] Gia Moctezuma, NURSES AIDE [address] [facility] [place] [address] Health Maintenance Due Date Last Done Comments Hepatitis B Vaccine (1 of 3 - 19+ 3-dose series) 05/30/2019 Pneumococcal Vaccine 0-49 (1 of 2 - PCV) 05/30/2019 HPV (3 - 3-dose series) 10/27/2019 08/04/2019, 12/12 COVID-19 Vaccine ( - 2023- season) 2023 Influenza Vaccine (#1) 2024 12/23/2018 Chlamydia Screening 05/11/2025 05/11/2024, 06/05/2023, 08/14/2020, Additional history exists Annual Wellness Exam 09/14/2025 09/14/2024, 05/12/19 Cervical Cancer Screening 06/04/2026 Pap Smear 06/04/2026 06/05/2023 DTaP/TDaP/Td (4 - Td or Tdap) 06/26/2030 06/26/2020, 01/05/2019, 12/08/2018, Additional history exists Meningococcal B Vaccine Aged Out No l onger eligible based on patient's age to complete this topic Goals Goal Patient Goal Type Associated Problems Recent Progress Patient-Stated? Author Maintain a healthy diet, exercise regularly and maintain an ideal body weight General No Sahra Steward Stay Tobacco Free Lifestyle No [employer]ena [employer] Implanted Type Area Casing Crew Device Identifier Shelf Expiration Date Model / Serial / Lot Stent Panc [id number] Advanx No Ld Izzy Sgl Pig Plst Lf - [id number] Implanted:Qty: 1 on 06/23/2024 by Lowell Alvarez DO at [facility] Pancreas [place] SCI:MICROVASIVE:E NDO 11/25/2025 [id number] / / [id number] Procedures Procedure Name Priority Date/Time Associated Diagnosis Comments URINALYSIS REFLEX STAT 10/12/2024 8:43 PM EDT UA W/REFLEX TO CULTURE STAT 8:43 PM EDT EXTRA JENNINGS URINE CX STAT 10/12/2024 8:43 PM EDT COMPREHENSIVE METABOLIC PANEL STAT 6:37 PM EDT LIPASE LEVEL STAT 10/12/2024 6:37 PM EDT CBC WITH DIFF STAT 10/12/2024 6:37 PM EDT HUMAN CHORIONIC GONADOTROPIN QUANTITATIVE STAT 10/12/2024 6:37 PM EDT URINE CULTURE (NO STAIN) Routine 025 10:43 AM EDT Positive test POCT EKG Routine 10/10/2024 10:37 AM EDT Fatigue, unspecified type POCT URINE TELCOR Routine 09/23 10:31 AM EDT Fatigue, unspecified type POCT GLUCOSE Routine 10/10/2024 10:24 AM EDT Fatigue, unspecified type ESOPHAGOGASTRODUODENOSCOPY (EGD) Routine 09/16/2024 1:54 PM EDT Gastroesophageal reflux disease with esophagitis without hemorrhage [facility] ORDER Routine 09/16/2024 1:54 PM EDT Gastroesophageal reflux disease with esophagitis without hemorrhage POCT URINE Routine 09/16/2024 12:28 PM EDT COMPREHENSIVE METABOLIC PANEL Routine 2:30 PM EDT Elevated liver enzymes HEMOGLOBIN A1C Routine 09/14/2024 10:36 AM EDT Diabetes mellitus screening MRI KNEE LEFT WO CONTRAST Routine 2024 12:13 PM EDT Acute pain of left knee POCT EKG Routine 08/15/2024 2:18 PM EDT PAC (premature atrial contraction) XR KNEE LEFT AP LAT INT EXT O[employer]IQUES AND SUNRISE GEORGI 08/05/2024 10:43 AM EDT HUMAN CHORIONIC GONADOTROPIN QUANTITATIVE Routine 08/01/2024 10:58 AM EDT Possible CHLAMYDIA/GC BY TMA Routine 05/11/2024 1:42 PM EDT Pelvic pain NNP CYTOLOGY REQUEST (PAP ONLY) Routine 06/05/2023 1:42 PM EDT Pap smear for cervical cancer screening from Last 3 Months or Most Recently Relevant to Health Maintenance Results * URINALYSIS REFLEX (10/12/2024 8:43 PM EDT) UA Color Light Yellow 10/12/2024 8:52 PM EDT [facility] UA Appear Clear Clear 10/12/2024 8:52 PM EDT [facility] UA Glucose Negative Negative mg/dL 10/12/2024 8:52 PM EDT [facility] UA Ketones Negative Negative mg/dL 10/12/2024 8:52 PM EDT [facility] UA Blood Negative Negative 10/12/2024 8:52 PM EDT [facility] UA pH 6.5 5.0 - 8.0 pH 10/12/2024 8:52 PM EDT [facility] UA Protein Negative Negative mg/dL 10/12/2024 8:52 PM EDT [facility] UA Urobilinogen Normal <=1 mg/dL 8:52 PM EDT [facility] Bili Negative Negative 10/12/2024 8:52 PM EDT [facility] Nitrite Negative Negative 10/12/2024 8:52 PM EDT [facility] Leuk Est Negative Negative 10/12/2024 8:52 PM EDT [facility] Spec Grav 1.012 1.001 - 1.035 no units 10/12/2024 8:52 PM EDT [facility] [employer] Comment:Reference range salty d for random specimens only. Urine STRUCTURE OF URINARY TRACT PROPER / Unknown 10/12/2024 8:43 PM EDT 10/12/2024 8:47 PM EDT Jared Cason MD URINE ORDERABLES Final Result Performing Organization Address [facility] Co de Phone Number [employer] [address] [place] [address], [place] [address] * EXTRA JENNINGS URINE CX (10/12/2024 8:43 PM EDT) Urine STRUCTURE OF URINARY TRACT PROPER / Unknown 10/12/2024 8:43 PM EDT 10/12/2024 8:47 PM EDT Jared Cason MD MICROBIOLOGY - GENERAL ORDERA BLES Final Result Performing Organization Address [facility] [place] [address] * (ABNORMAL) CBC WITH DIFF (10/12/2024 6:37 PM EDT) WBC 8.6 3.7 - 10.3 x10(3)/mcL 10/12/2024 6:50 PM EDT [facility] RBC 4.46 3.90 - 5.20 x10(6)/mcL 10/12/2024 6:50 PM EDT [facility] Hgb 12.6 11.2 - 15.7 g/dL 10/12/2024 6:50 PM EDT [facility] Hct 37.0 34.0 - 45.0 % 10/12/2024 6:50 PM EDT [facility] MCV 83.0 80.0 - 100.0 fL 10/12/2024 6:50 PM EDT [facility] MCH 28.3 26.0 - 34.0 pg 10/12/2024 6:50 PM EDT [facility] MCHC 34.1 30.7 - 35.5 g/dL 10/12/2024 6:50 PM EDT [facility] RDW 12.1 <=14.9 % 10/12/2024 6:50 PM EDT [facility] Platelet 215 155 - 369 x10(3)/mcL 10/12/2024 6:50 PM EDT [facility] MPV 13.0(H) 8.8 - 12.5 fL 10/12/2024 6:50 PM EDT [facility] Neut Percent 63.3 % 10/12/2024 6:50 PM EDT [facility] Comment:Neutrophils equals s egs plus bands Imm Gran% 0.2 % 10/12/2024 6:50 PM EDT [facility] Comment:Automated count of m etamyelocytes, myelocytes and promyelocytes. Lymph Percent 27.3 % 10/12/2024 6:50 PM EDT [facility] [place] Percent 7.1 % 10/12/2024 6:50 PM EDT [facility] Eos Percent 1.9 % 10/12/2024 6:50 PM EDT [facility] Baso Percent 0.2 % 10/12/2024 6:50 PM EDT [facility] Neut # 5.4 1.6 - 6.1 x10(3)/mcL 10/12/2024 6:50 PM EDT [facility] Comment:Neutrophils equals s egs plus bands IMMGRAN# 0.0 0.0 - 0.1 x10(3)/mcL 10/12/2024 6:50 PM EDT [facility] Comment:Automated count of m etamyelocytes, myelocytes and promyelocytes. An absolute IG <0.1 is reported as 0.0. Lymph # 2.3 1.2 - 3.9 x10(3)/mcL 10/12/2024 6:50 PM EDT [facility] [place] # 0.6 0.3 - 0.9 x10(3)/mcL 10/12/2024 6:50 PM EDT [facility] Eos# 0.2 0.0 - 0.5 x10(3)/mcL 10/12/2024 6:50 PM EDT [facility] Baso # 0.0 0.0 - 0.1 x10(3)/mcL 10/12/2024 6:50 PM EDT [facility] Blood VENOUS BLOOD / Unknown Venipuncture / Unknown 10/12/2024 6:37 PM EDT 10/12/2024 6:45 PM EDT Jared Cason MD HEMATOLOGY ORDERABLES Final R esult Performing Organization Address [facility] Co de Phone Number [address] [address] * (ABNORMAL) HUMAN CHORIONIC GONADOTROPIN QUANTITATIVE (10/12/2024 6:37 PM EDT) Only the most recent of2 resultswithin the time period is included. Hcg Quant 82,907(H) <5 mIU/mL 10/12/2024 7:23 PM EDT [facility] Blood VENOUS BLOOD / Unknown Venipuncture / Unknown 10/12/2024 6:37 PM EDT 10/12/2024 6:45 PM EDT Narrative [facility] - 10/12/2024 7:23 PM EDT [...] Cason MD CHEMISTRY ORDERABLES Final Re sult Performing Organization Address [facility] Co de Phone Number [address] [address] * LIPASE LEVEL (10/12/2024 6:37 PM EDT) Lipase Lvl 39 13 - 60 U/L 10/12/2024 7:09 PM EDT [facility] Blood VENOUS BLOOD / Unknown Venipuncture / Unknown 10/12/2024 6:37 PM EDT 10/12/2024 6:45 PM EDT us Jared Cason MD CHEMISTRY ORDERABLES Final Re sult [facility] [address] [id number] * (ABNORMAL) COMPREHENSIVE METABOLIC PANEL (10/12/2024 6:37 PM EDT) Only the most recent of2 resultswithin the time period is included. Sodium 135(L) 136 - 145 mmol/L 10/12/2024 7:09 PM EDT [facility] Potassium 4.0 3.5 - 5.0 mmol/L 10/12/2024 7:09 PM EDT [facility] Chloride 100 98 - 107 mmol/L 10/12/2024 7:09 PM EDT [facility] Total CO2 22 22 - 29 mmol/L 10/12/2024 7:09 PM EDT [facility] Anion Gap 13 7 - 16 mmol/L 10/12/2024 7:09 PM EDT [facility] Calcium 9.0 8.6 - 10.4 mg/dL 10/12/2024 7:09 PM EDT [facility] Glucose Lvl 84 70 - 99 mg/dL 10/12/2024 7:09 PM EDT [facility] BUN 7 6 - 20 mg/dL 10/12/2024 7:09 PM EDT [facility] Creatinine 0.60 0.51 - 1.30 mg/dL 10/12/2024 7:09 PM EDT [facility] Albumin 4.1 3.5 - 5.2 gm/dL 10/12/2024 7:09 PM EDT [facility] Total Protein 7.1 6.4 - 8.3 gm/dL 10/12/2024 7:09 PM EDT [facility] Bili Total 0.3 0.2 - 1.3 mg/dL 10/12/2024 7:09 PM EDT [facility] ALT 28 <=41 U/L 10/12/2024 7:09 PM EDT [facility] AST 19 <=40 U/L 10/12/2024 7:09 PM EDT [facility] Alk Phos 88 36 - 123 U/L 10/12/2024 7:09 PM EDT [facility] eGFR (CKD-EPIcr 2020) 128 >=60 mL/min/1.7 3 m2 10/12/2024 7:09 PM EDT [facility] Comment:Estimated GFR was ca lculated using the CKD-EPIcr (2020) equation refit without race. The equation is recommended by the National Kidney Foundation - [employer] of Nephrology Task Force. Blood VENOUS BLOOD / Unknown Venipuncture / Unknown 10/12/2024 6:37 PM EDT 10/12/2024 6:45 PM EDT us Jared Cason MD CHEMISTRY ORDERABLES Final Re sult [address] [address] * URINE CULTURE (NO STAIN) (10/10/2024 10:43 AM EDT) Culture Multiple bacterial species isolated from urine consistent with urogenital commensal organisms. 10/12/2024 9:42 PM EDT [facility] Urine STRUCTURE OF URINARY TRACT PROPER / Unknown 10/10/2024 10:43 AM EDT 10/10/2024 10:43 AM EDT us Cheryl Giron APRN MICROBIOLOGY - GENERAL ORDER LAYNE Final Result Performing Organization Address City/[facility]/ZIP Co de Phone Number [facility] [address] [place] [address], [place] [address] * POCT EKG (10/10/2024 10:37 AM EDT) Only the most recent of2 resultswithin the time period is included. 10/10/2024 10:3 7 AM EDT Impressions SEP OFFICE - 10/10/2024 11:21 AM EDT Sinus rhythm Cheryl Giron APRN POINT OF CARE CARDIOLOGY Fin al Result Performing Organization Address City/[facility] Co de Phone Number SEP OFFICE * POCT URINE TELCOR (10/10/2024 10:31 AM EDT) Preg Test, Ur Positive 10/10/2024 10:35 AM EDT [facility] Urine STRUCTURE OF URINARY TRACT PROPER / Unknown 10/10/2024 10:31 AM EDT 10/10/2024 10:35 AM EDT Cheryl Giron APRN POINT OF CARE TEST ORDERABLE S Final Result Performing Organization Address [facility] de Phone Number [address] [place] [address] * POCT GLUCOSE (10/10/2024 10:24 AM EDT) Glucose 103 60 - 200 MG/DL SEP OFFICE Lot Number SEP OFFICE Expiration Date SEP OFFICE SeriAl # SEP OFFICE Meter SEP OFFICE 10/10/2024 10:2 4 AM EDT Cheryl Giron APRN POINT OF CARE TEST ORDERABLE S Final Result Performing Organization Address [facility] de Phone Number SEP OFFICE * ESOPHAGOGASTRODUODENOSCOPY (EGD) (09/16/2024 1:54 PM EDT) [...] pathology results. Please call our office at [phone] if you have not received results and [...] [facility] PATHOLOGY ORDER Kraig Andrade MD 09/16/2024 3904 2 : Erosive esophagitis f/u Tissue Gastroesophageal Junction [facility] PATHOLOGY ORDER Kraig Andrade MD 09/16/2024 1354 Kraig Andrade MD ENDOSCOPY PROCEDURE ORDERA BLES Final Result * [facility] PATHOLOGY ORDER (09/16/2024 1:54 PM EDT) Tissue CARDIOESOPHAGEAL JUNCTION STRUCTURE / Unknown 09/16/2024 1:54 PM EDT Tissue specimen (specimen) ESOPHAGEAL STRUCTURE / Unknown 09/16/2024 1:54 PM EDT Impressions [facility] - 09/16/2024 7:00 PM EDT A. [...] of intestinal metaplasia, dysplasia, or malignancy. Narrative [facility] - 09/16/2024 7:00 PM EDT Pathologist: Davion Francisco MD Kraig Andrade MD [employer] - ORDERABLES Fin al Result [address] * POCT URINE (09/16/2024 12:28 PM EDT) Preg Test, Ur negative [facility] Lot Number [id number] [facility] Expiration Date 02/10/26 [facility] SeriAl # [facility] Control Line Yes YES/NO [facility] 09/16/2024 12:2 8 PM EDT Kraig Andrade MD POINT OF CARE TEST ORDERAB LES Final Result [facility] [address] [phone] * HEMOGLOBIN A1C (09/14/2024 10:36 AM EDT) Hgb A1C 5.0 4.2 - 5.6 % 09/14/2024 3:56 PM EDT [facility]. Avg Glucose 97 mg/dL 09/14/2024 3:56 PM EDT [facility] Blood VENOUS BLOOD / Unknown Venipuncture / Unknown 09/14/2024 10:36 AM EDT 09/14/2024 10:36 AM EDT Narrative [facility] - 09/14/2024 3:56 PM EDT REFERENCE RANGE: Normal: 4.0-5.6% Pre-diabetes: 5.7-6.4% Provisional diagnosis of diabetes: >6.4% Hgb F>10% and anything which shortens red cell survival, such as hemolytic anemia, or unstable hemoglobin variants such as HbSS, HbSC, or HbCC, will lower the HbA1c value associated with a given level of glycemic control. us Diana Rachel DO CHEMISTRY ORDERABLES Final R esult Performing Organization Address [facility] Co de Phone Number [facility] [address] [place] [address], [place] [address] * MRI KNEE LEFT WO CONTRAST (08/27/2024 12:13 PM EDT) Narrative [facility] - 08/27/2024 12:13 PM EDT Please see the scanned MRI report associated with this order on the Imaging tab of the patient's chart. us Qiana Dominguez DO IMG MRI ORDERABLES Final Resul t Performing Organization Address [facility] de Phone Number [facility] * XR KNEE LEFT AP LAT INT EXT OBLIQUES AND SUNRISE (08/05/2024 10:43 AM EDT) Anatomical Region Laterality Modality Knee Radiographic Joanne ging 08/05/2024 10:4 3 AM EDT Impressions 08/05/2024 10:51 AM EDT Medial soft tissue swelling and a small joint effusion without acute osseous abnormality. - Note: Radiology results need to be interpreted within a comprehensive clinical context. If you have questions about the radiology report, please contact the office of the ordering clinician. Narrative 08/05/2024 10:51 AM EDT XR KNEE LEFT AP LAT INT EXT OBLIQUES AND SUNRISE, 08/05/2024 10:43 AM CLINICAL HISTORY: -left knee pain COMPARISON: None. PROCEDURE COMMENTS: XR KNEE LEFT AP LAT INT EXT OBLIQUES AND SUNRISE FINDINGS: No acute fracture or dislocation. The joint spaces are maintained in anatomic alignment. Small joint effusion. Medial soft tissue swelling. Procedure Note Mike Kearney, - 08/05/2024 XR KNEE LEFT AP LAT INT EXT OBLIQUES AND SUNRISE, 08/05/2024 10:43 AM CLINICAL HISTORY: -left knee pain COMPARISON: None. PROCEDURE COMMENTS: XR KNEE LEFT AP LAT INT EXT OBLIQUES AND SUNRISE FINDINGS: No acute fracture or dislocation. The joint spaces aremaintained in anatomic alignment. Small joint effusion. Medial soft tissue swelling. IMPRESSION: Medial soft tissue swelling and a small joint effusion without acute osseous abnormality. - Note: Radiology results need to be interpreted within a comprehensiveclinical context. If you have questions about the radiology report, please contactthe office of the ordering clinician. us Joi Bass PA-C IMG DIAGNOSTIC IMAGING [facility] Final Result * CHLAMYDIA/GC BY TMA (05/11/2024 1:42 PM EDT) Chlamydia trachomatis Not Detected Not Detected 05/12/2024 3:24 AM EDT [facility]REFERRED [facility] Neisseria gonorrhoeae Not Detected Not Detected 05/12/2024 3:24 AM EDT [facility] Urine STRUCTURE OF URINARY TRACT PROPER / Unknown 05/11/2024 1:42 PM EDT 05/11/2024 1:42 PM EDT Narrative [facility]REFERRED [facility], [facility] - 05/12/2024 3:24 AM EDT Testing methodology is mottler operator mediated amplification (TMA) using the Aptima Combo 2 assay from [employer]. A negative result does not completely rule out a Chlamydia trachomatis or Neisseria gonorrhoeae infection due to potential inhibitors or levels present below the limit of detection by this assay. Results are dependent on proper collection and transport of specimen. This test is indicated for medical purposes only and should not be used for legal or forensic purposes. The performance characteristics of this assay were validated by the testing laboratory. This assay is FDA cleared to test the following specimens: clinician-collected endocervical, vaginal, male urethral swab specimens, rectal swabs, and throat/pharyngeal swabs; patient collected vaginal specimens within a clinic setting; Thin Prep Specimens in PreservCyt Solution; and first-stream, unpreserved male and female urine specimens. Detailed methodology is available upon request. Diana Rachel DO MICROBIOLOGY - GENERAL ORDER LAYNE Final Result [facility] [address], [place] [address] * NNP CYTOLOGY REQUEST (PAP ONLY) (06/05/2023 1:42 PM EDT) CASE REPORT Gynecologic Cytology Report Case: [id number] Authorizing Provider: Diana Rachel DO Collected: 06/05/2023 1342 Ordering Location: [facility] Received: 06/05/2023 1342 First Screen: Sly Faust CT Specimen: LIQUID-BASED PAP - CERVICAL/ENDOCERV ICAL, Cervix, Endocervical 06/09/2023 8:03 AM EDT [facility] PAP FINAL DIAGNOSIS Negative for intraepithelial lesion or malignancy 06/09/2023 8:03 AM EDT [facility] at 0803 EDT MICROSCOPIC DESCRIPTION Microscopic examination is performed and the findings corroborate the diagnosis. 06/09/2023 8:03 AM EDT [facility] PAP SMEAR ADEQUACY Satisfactory for evaluation 06/09/2023 8:03 AM EDT [facility] ENDOCERVICAL T-ZONE Transformation zone present 06/09/2023 8:03 AM EDT [facility] EMBEDDED IMAGES 8:03 AM EDT [facility] PAP DISCLAIMER The Pap Smear is a screening test that aids in the detection of cervical cancer and cancer precursors. Both false positive and false negative results can occur. The test should be used at regular intervals, and positive results should be confirmed before definitive therapy. Processed using the ThinPrep Test Examiner Automated cytology screening device ([employer]). 06/09/2023 8:03 AM EDT [facility] Thin Prep ENDOCERVICAL STRUCTURE / Unknown 06/05/2023 1:42 PM EDT 06/05/2023 1:42 PM EDT us Diana Rachel DO CYTOLOGY ORDERABLES Final Re sult [facility] [address] [place] [address] from Last 3 Months or Most Recently Relevant to Health Maintenance Insurance [facility] [place] [address] [facility] [place] [address] [id number] [employer] [place] [employer] [place] [place] [address] [id number] [employer] [place] Advance Directives For more information, please contact: [phone] * Full Code (Latest Code Status on File) Date Activated Date Inactivated Comments 06/23/2024 2:02 AM 06/23/2024 9:42 PM * Full Code Date Activated Date Inactivated Comments 09/01/2020 5:20 AM 09/03/2020 4:00 PM * Full Code Date Activated Date Inactivated Comments 02/18/2019 11:06 PM 02/20/2019 9:13 PM * Full Code Date Activated Date Inactivated Comments 11/08/2016 11:58 PM 11/12/2016 4:55 PM * Full Code Date Activated Date Inactivated Comments 11/05/2016 7:41 AM 11/07/2016 8:46 PM Care Teams Professor Of Law Relationship Specialty Start Date End Date Diana Rachel DO [address] [place] [address] PCP - General Family Medicine 09/02/23
--- OUTSIDE RECORDS SUMMARY | 2024-10-16 17:14 | XMS_ITS | Encounter Summary ---
Author Organization [place] [address] Care Team Providers Care Car Changer Name Role Phone Diana Rachel DO Primary Care Provider + [phone] Reason for Visit * Reason Onset Date Comments Routine Visit 10/12/2024 Encounter Details Date Type Department Care Team (Late st Contact Info) Description 10/12/2024 Nurse Triage [facility] Nurse Now [address] [place] [address] Will Gentile, MARIAN Social History Tobacco Use Types Packs/Day Years Used Date Smoking Tobacco: Some Days Cigarettes Passive Smoke Exposure: Past Smokeless Tobacco: Never Alcohol Use Standard Drinks/Week Comments Not Currently 0 (1 standard drink = 0.6 oz pur e alcohol) social- rarely [facility] Utilities Answer Date Recorded In the past 12 months has [employer], gas, oil, or water [employer] threatened to shut off services in your home? No 06/23/2024 Overall Financial Resource Strain (CARDIA) Answe r Date Recorded How hard is it for you to pa y for the very basics like food, housing, medical care, and heating? Not hard at all 06/23/2024 PHQ-2 Answer Date Recorded PHQ-2 Total Score 0 09/14/2024 [facility] [place] of Occupat ional Health - Occupational Stress [...] things needed for daily living? No 05/31/2021 [facility] IP Transportation Answer D ate Recorded [...] Chris Anne RN documented in this encounter Miscellaneous Notes * Telephone Encounter - Will Gentile RN - 10/12/2024 9:06 AM EDT Nurse Triage Call -Chief Complaint: patient with N/V. Vomited 3-5 times yesterday but zero episodes today. Pt does report feeling nauseous, but able to keep fluids down and no s/s of dehydration. U/s and new patient orientation 11/16/24. -Reported by: Patient -Vitals: No vitals obtained on this call -Disposition per protocol: home care -Follow up/Concerns: reviewed s/s to monitor and when to c/b. Reason for Disposition Nausea or vomiting Answer Assessment - Initial Assessment Questions 1. VOMITING SEVERITY: How many times have you vomited in the past 24 hours? - NONE - MILD: 1 - 2 times/day - MODERATE: 3 - 5 times/day, decreased oral intake without significant weight loss or symptoms of dehydration - SEVERE: 6 or more times/day, vomits everything or nearly everything, with significant weight loss, symptoms of dehydration moderate 2. ONSET: When did the vomiting begin? nausea for the past month 3. FLUIDS: What fluids or food have you vomited up today? Are you able to keep any liquids down? able to keep fluids down 4. TREATMENT: What have you been doing so far to treat this? *No Answer* 5. DEHYDRATION: When was the last time you urinated? Are you feeling lightheaded? Weight loss? no 6. : How many weeks are you? How has the been going? n/a 7. DOMINGUEZ: What date are you expecting to deliver? not sure 8. MEDICINES: What medicines are you taking? (e.g., vitamins, iron, vitamin B6) vitamins 9. OTHER SYMPTOMS: Do you have any other symptoms? SOTO, back pain Protocols used: - Morning Sickness (Nausea and Vomiting of )-A-OH documented in this encounter Plan of Treatment Upcoming Encounters Date Type Department Care Team (Late st Contact Info) Description 11/16/2024 10:30 AM EDT Clinical Support [facility] [address] [place] [address] 11/16/2024 11:00 AM EDT INITIAL VISIT [facility] [address] [place] [address] 03/02/2025 1:30 PM EST Office Visit [facility] [address] [facility] [address] [place] [address] Gia Moctezuma, TEENAGE BABYSITTER [address] [place] [address] documented as of this encounter Goals Goal Patient Goal Type Associated Problems Recent Progress Patient-Stated? Author Maintain a healthy diet, exercise regularly and maintain an ideal body weight General No Sahra Steward Stay Tobacco Free Lifestyle No Nena Xavier documented as of this encounter Visit Diagnoses Not on filedocumented in this encounter Care Teams Car Changer Relationship Specialty Start Date End Date Diana Rachel DO [address] [place] [address] PCP - General Family Medicine 09/02/23 documented as of this encounter
--- OUTSIDE RECORDS SUMMARY | 2024-10-16 17:14 | XMS_ITS | Encounter Summary ---
Author Organization [facility] Address [address] [place] [address] Care Team Providers Care Project Management Consultant Name Role Phone Diana Rachel DO Primary Care Provider + [phone] Encounter Details Date Type Department Care Team (Late st Contact Info) Description 06/30/2024 Results Follow-Up [facility] [address] [place] [address] Jose Cabrera APRN [address] [place] [address] XR ABDOMEN AP Social History Tobacco Use Types Packs/Day Years Used Date Smoking Tobacco: Never Passive Smoke Exposure: Past Smokeless Tobacco: Never Alcohol Use Standard Drinks/Week Comments Yes 0 (1 standard drink = 0.6 oz pur e alcohol) social [facility] Utilities Answer Date Recorded In the past 12 months has [employer], gas, oil, or water [employer] threatened to shut off services in your home? No 06/23/2024 Overall Financial Resource Strain (CARDIA) Answe r Date Recorded How hard is it for you to pa y for the very basics like food, housing, medical care, and heating? Not hard at all 06/23/2024 PHQ-2 Answer Date Recorded PHQ-2 Total Score 0 06/23/2024 [facility] [place] of Occupat ional Health - Occupational Stress [...] things needed for daily living? No 05/31/2021 [facility] IP Transportation Answer D ate Recorded In the past 12 months, has l ack of reliable transportation kept you from medical appointments, meetings, work or from getting things needed for daily living? No 06/23/2024 Sexually Active [employer] Comments Yes OCP Male Comments No Sex and Gender Information Value [...] 4:46 PM EDT Chris Anne, MARIAN * Is the person blind or does [...] Author No 06/23/2024 4:46 PM EDT Chris AnneMARIAN * Because of a physical, mental or emotional condition, does this person have difficulty doing errands alone such as visiting a doctor's office or shopping? Answer Date of Assessment Author No 06/23/2024 4:46 PM EDT Chris Anne RN * Suicide Severity Rating Answer Date of Assessment Author No Risk 08/05/2024 10:05 AM EDT Kj Gómez RN * [place] Suicide Severity Rating Scale (Q shift for moderate and high) Question Answer Date of Assessment Author 1. In the past month, have y ou wished you were or wished you could go to sleep and not wake up? 0 08/05/2024 10:05 AM EDT Aurelio Gómez RN 2. In the past month, have y ou actually had any thoughts of killing yourself? (If no, skip to question 6) 0 08/05/2024 10:05 AM ED T Kj Gómez RN 6. Have you ever done anythi ng, started to do anything, or prepared to do anything to end your life? 0 08/05/2024 10:05 AM EDT Kj Kay RN documented as of this encounter Mental [...] EDT Clinical Support [facility] [address] [place] [address] [place] [phone] 11/16/2024 11:00 AM EDT INITIAL VISIT [facility] [address] [place] [address] 03/02/2025 1:30 PM EST Office Visit [facility] [address] [place] [address] Gia Moctezuma, SOCIAL SERVICES [address] [place] [address] documented as of this encounter Goals Goal Patient Goal Type Associated Problems Recent Progress Patient-Stated? Author Maintain a healthy diet, exercise regularly and maintain an ideal body weight General No Sahra Steward documented as of this encounter Visit Diagnoses Not on filedocumented in this encounter Care Teams Project Management Consultant Relationship Specialty Start Date End Date Diana Rachel DO [address] [place] [phone] PCP - General Family Medicine 09/02/23 documented as of this encounter
--- OUTSIDE RECORDS SUMMARY | 2024-10-16 17:14 | XMS_ITS | Encounter Summary ---
Author Organization [place] [address] Care Team Providers Care Golf Course Designer Name Role Phone Omer Rachelelle Chris HARRINGTON Primary Care Provider + [phone] Encounter Details Date Type Department Care Team (Late st Contact Info) Description 10/12/2024 Results Follow-Up [facility] [address] [place] [address] Ghassan Summers PA-C [address] [place] [address] URINE CULTURE (NO STAIN) Social History Tobacco Use Types Packs/Day Years Used Date Smoking Tobacco: Some Days Cigarettes Passive Smoke Exposure: Past Smokeless Tobacco: Never Alcohol Use Standard Drinks/Week Comments Not Currently 0 (1 standard drink = 0.6 oz pur e alcohol) social- rarely [facility] Utilities Answer Date Recorded In the past 12 months has food.de electric, gas, oil, or water [employer] threatened to shut off services in your home? No 06/23/2024 Overall Financial Resource Strain (CARDIA) Answe r Date Recorded How hard is it for you to pa y for the very basics like food, housing, medical care, and heating? Not hard at all 06/23/2024 PHQ-2 Answer Date Recorded PHQ-2 Total Score 0 09/14/2024 [facility] of Occupat ional Health - Occupational Stress [...] things needed for daily living? No 05/31/2021 [facility] IP Transportation Answer D ate Recorded In [...] 0 10/12/2024 6:31 PM EDT Echo Whipple , MARIAN 2. In the past month, have y ou actually had any thoughts of killing yourself? (If no, skip to question 6) 0 10/12/2024 6:31 PM EDT Echo Whipple , MARIAN 6. Have you ever done anythi ng, [...] 11/16/2024 10:30 AM EDT Clinical Support [facility] Jona Eugene [address] [place] [address] [place] [phone] 11/16/2024 11:00 AM EDT INITIAL VISIT [facility] Eugene [address] [place] [address] [place] [phone] 03/02/2025 1:30 PM EST Office Visit [facility] [address] [place] [address] Gia Moctezuma, COUNTING MACHINE OPERATOR [address] [place] [address] documented as of this encounter Goals Goal Patient Goal Type Associated Problems Recent Progress Patient-Stated? Author Maintain a healthy diet, exercise regularly and maintain an ideal body weight General No Sahra Steward Stay Tobacco Free Lifestyle No Nena Xavier documented as of this encounter Visit Diagnoses Not on filedocumented in this encounter Care Teams Golf Course Designer Relationship Specialty Start Date End Date Diana Rachel DO [place] [id number] PCP - General Family Medicine 09/02/23 documented as of this encounter
--- OUTSIDE RECORDS SUMMARY | 2024-10-16 17:14 | XMS_ITS | Encounter Summary ---
Author Organization [facility] Address [address] [facility] [place] [address] Care Team Providers Care Ent Physician Name Role Phone Omer Rachelelle Chris HARRINGTON Primary Care Provider + [phone] Encounter Details Date Type Department Care Team (Late st Contact Info) Description 09/23/2024 Results Follow-Up [facility] [address] [facility] [place] [address] Kraig Andrade MD [address] [place] [address] [facility] PATHOLOGY ORDER Social History Tobacco Use Types Packs/Day Years Used Date Smoking Tobacco: Some Days Cigarettes Passive Smoke Exposure: Past Smokeless Tobacco: Never Alcohol Use Standard Drinks/Week Comments Not Currently 0 (1 standard drink = 0.6 oz pur e alcohol) social- rarely [facility] Utilities Answer Date Recorded In the past 12 months has [employer], gas, oil, or water [employer] threatened to shut off services in your home? No 06/23/2024 Overall Financial Resource Strain (CARDIA) Answe r Date Recorded How hard is it for you to pa y for the very basics like food, housing, medical care, and heating? Not hard at all 06/23/2024 PHQ-2 Answer Date Recorded PHQ-2 Total Score 0 09/14/2024 [facility] [place] of Occupat ional Health - Occupational Stress [...] things needed for daily living? No 05/31/2021 [facility] IP Transportation Answer D ate Recorded [...] No 06/23/2024 4:46 PM EDT Chris Anne, RN * Does this person have difficulty [...] Chris Anne RN documented in this encounter Ordered Prescriptions Prescription Sig Dispense Quantity Refills Last Filled Start Date End Date budesonide (EOHILIA) 2 mg/10 mL Oral Suspension in PacketIndications:E osinophilic esophagitis Take 2 mg by mouth 2 times daily. 60 Packet 1 09/23/2024 documented in this encounter Plan of Treatment Upcoming Encounters Date Type Department Care Team (Late st Contact Info) Description 11/16/2024 10:30 AM EDT Clinical Support [facility] [address] [place] [address] [address] [place] [address] 11/16/2024 11:00 AM EDT INITIAL VISIT [facility] [address] [place] [address] [place] [phone] 03/02/2025 1:30 PM EST Office Visit [facility] [address] [facility] [address] [place] [address] Gia Moctezuma, SOFTWARE SPECIALIST [address] [place] [address] documented as of this encounter Goals Goal Patient Goal Type Associated Problems Recent Progress Patient-Stated? Author Maintain a healthy diet, exercise regularly and maintain an ideal body weight General No Sahra Steward Stay Tobacco Free Lifestyle No Nena Xavier documented as of this encounter Visit Diagnoses Diagnosis Eosinophilic esophagitis- Primary documented in this encounter Care Teams Ent Physician Relationship Specialty Start Date End Date Diana Rachel DO [address] [place] [address] PCP - General Family Medicine 09/02/23 documented as of this encounter
--- OUTSIDE RECORDS SUMMARY | 2024-10-16 17:14 | XMS_ITS | Encounter Summary ---
Author Organization [place] Address [employer] [place] [address] Care Team Providers Care Spring Setter Name Role Phone Diana Rachel DO Primary Care Provider + [phone] Encounter Details Date Type Department Care Team (Late st Contact Info) Description 08/01/2024 Results Follow-Up [facility] [address] [place] [address] Diana Rachel DO [address] [place] [address] HUMAN CHORIONIC GONADOTROPIN QUANTITATIVE Social History Tobacco Use Types Packs/Day Years Used Date Smoking Tobacco: Never Passive Smoke Exposure: Past Smokeless Tobacco: Never Alcohol Use Standard Drinks/Week Comments Yes 0 (1 standard drink = 0.6 oz pur e alcohol) social [facility] Utilities Answer Date Recorded In the past 12 months has [employer], gas, oil, or water [employer] threatened to shut off services in your home? No 06/23/2024 Overall Financial Resource Strain (CARDIA) Answe r Date Recorded How hard is it for you to pa y for the very basics like food, housing, medical care, and heating? Not hard at all 06/23/2024 PHQ-2 Answer Date Recorded PHQ-2 Total Score 0 09/14/2024 [facility] of Occupat ional Health - Occupational Stress [...] things needed for daily living? No 05/31/2021 [facility] IP Transportation Answer D ate Recorded [...] in some way 0 09/14/2024 10:00 AM iLly Gomes MA If you checked off any problems, how difficult have these problems made it for you to do your work, take care of things at home, or get along with other people? Not difficult at all 09/14/2024 10:00 AM EDT Lily Briscoe MA * PHQ-2 Total Score Answer Date of Assessment Author 0 09/14/2024 10:00 AM EDT Sherry Briscoe MA * Suicide Severity Rating Answer Date of Assessment Author No Risk 08/05/2024 10:05 AM EDT Kj Gómez RN * [place] Suicide Severity Rating Scale (Q shift for [...] Clinical Support [facility] [address] [place] [address] [place] [phone] 11/16/2024 11:00 AM EDT INITIAL VISIT [facility] [address] [place] [address] [address] [place] [address] 03/02/2025 1:30 PM EST Office Visit [facility] [address] [place] [address] Gia Moctezuma, OCEAN FREIGHT AGENT [address] [place] [address] documented as of this encounter Goals Goal Patient Goal Type Associated Problems Recent Progress Patient-Stated? Author Maintain a healthy diet, exercise regularly and maintain an ideal body weight General No Sahra Steward Stay Tobacco Free Lifestyle No Nena Xavier documented as of this encounter Visit Diagnoses Not on filedocumented in this encounter Care Teams Spring Setter Relationship Specialty Start Date End Date Diana Rachel DO [address] [place] [address] PCP - General Family Medicine 09/02/23 documented as of this encounter
--- OUTSIDE RECORDS SUMMARY | 2024-10-16 17:14 | XMS_ITS | Encounter Summary ---
Author Organization [place] Address [place] [address] Care Team Providers Care Continuum Of Care Manager Name Role Phone Diana Rachel DO Primary Care Provider + [phone] Encounter Details Date Type Department Care Team (Late st Contact Info) Description 09/14/2024 Results Follow-Up [facility] [address] [place] [address] Diana Rachel DO [address] [place] [address] HEMOGLOBIN A1C Social History Tobacco Use Types Packs/Day Years Used Date Smoking Tobacco: Some Days Cigarettes Passive Smoke Exposure: Past Smokeless Tobacco: Never Alcohol Use Standard Drinks/Week Comments Not Currently 0 (1 standard drink = 0.6 oz pur e alcohol) social [facility] Utilities Answer Date Recorded In the past 12 months has [employer], gas, oil, or water [employer] threatened to shut off services in your home? No 06/23/2024 Overall Financial Resource Strain (CARDIA) Answe r Date Recorded How hard is it for you to pa y for the very basics like food, housing, medical care, and heating? Not hard at all 06/23/2024 PHQ-2 Answer Date Recorded PHQ-2 Total Score 0 09/14/2024 [facility] [place] of Occupat ional Health - Occupational Stress [...] things needed for daily living? No 05/31/2021 [facility] IP Transportation Answer D ate [...] EDT Clinical Support [facility] [address] [place] [address] [place] [phone] 11/16/2024 11:00 AM EDT INITIAL VISIT [facility] [address] [place] [address] [place] [phone] 03/02/2025 1:30 PM EST Office Visit [facility] [address] [facility] [address] [place] [address] Gia Moctezuma APRN [address] [place] [address] documented as of this encounter Goals Goal Patient Goal Type Associated Problems Recent Progress Patient-Stated? Author Maintain a healthy diet, exercise regularly and maintain an ideal body weight General No Sahra Steward Stay Tobacco Free Lifestyle No Nena Xavier documented as of this encounter Visit Diagnoses Not on filedocumented in this encounter Care Teams Continuum Of Care Manager Relationship Specialty Start Date End Date Diana Rachel DO [address] [place] [address] PCP - General Family Medicine 09/02/23 documented as of this encounter
--- OUTSIDE RECORDS SUMMARY | 2024-10-16 17:14 | XMS_ITS | Encounter Summary ---
Author Organization [facility] Address [address] [facility] [address] Care Team Providers Care Science Manager Name Role Phone Omer Rachelelle Chris HARRINGTON Primary Care Provider + [phone] Encounter Details Date Type Department Care Team (Latest Contact Info) Description 09/14/2024 Results Follow-Up [facility] [address] [place] [address] Kraig Andrade MD [address] [facility] [place] [address] COMPREHENSIVE METABOLIC PANEL Social History Tobacco Use Types Packs/Day Years Used Date Smoking Tobacco: Some Days Cigarettes Passive Smoke Exposure: Past Smokeless Tobacco: Never Alcohol Use Standard Drinks/Week Comments Not Currently 0 (1 standard drink = 0.6 oz pur e alcohol) social [facility] Utilities Answer Date Recorded In the past 12 months has [employer], gas, oil, or water [employer] threatened to shut off services in your home? No 06/23/2024 Overall Financial Resource Strain (CARDIA) Answe r Date Recorded How hard is it for you to pa y for the very basics like food, housing, medical care, and heating? Not hard at all 06/23/2024 PHQ-2 Answer Date Recorded PHQ-2 Total Score 0 09/14/2024 [facility] of Occupat ional Health - Occupational Stress [...] things needed for daily living? No 05/31/2021 [facility] IP Transportation Answer D ate Recorded In [...] 4:46 PM EDT Chris Anne, RN * Because of a physical, mental [...] EDT Clinical Support [facility] [address] [place] [address] [place] [phone] 11/16/2024 11:00 AM EDT INITIAL VISIT [facility] [address] [place] [address] [place] [phone] 03/02/2025 1:30 PM EST Office Visit [facility] [address] [facility] [place] [address] Gia Moctezuma APRN [address] [place] [address] documented as of this encounter Goals Goal Patient Goal Type Associated Problems Recent Progress Patient-Stated? Author Maintain a healthy diet, exercise regularly and maintain an ideal body weight General No Sahra Steward Stay Tobacco Free Lifestyle No Nena Xavier documented as of this encounter Visit Diagnoses Not on filedocumented in this encounter Care Teams Science Manager Relationship Specialty Start Date End Date Diana Rachel DO [address] [place] [address] PCP - General Family Medicine 09/02/23 documented as of this encounter
--- OUTSIDE RECORDS SUMMARY | 2024-10-16 17:14 | XMS_ITS | Encounter Summary ---
Author Organization [facility] Gastroente rology Address [address] [facility] [address] Care Team Providers Care In School Suspension Aide Name Role Phone Diana Rachel DO Primary Care Provider + [phone] Reason for Visit * Reason Onset Date Comments Medication Question 09/14/2024 Encounter Details Date Type Department Care Team (Late st Contact Info) Description 09/14/2024 Telephone [facility] [address] [facility] [place] [address] Brenda Burgess RN Medication Question Social History Tobacco Use Types Packs/Day Years Used Date Smoking Tobacco: Some Days Cigarettes Passive Smoke Exposure: Past Smokeless Tobacco: Never Alcohol Use Standard Drinks/Week Comments Not Currently 0 (1 standard drink = 0.6 oz pur e alcohol) social C Utilities Answer Date Recorded In the past 12 months has [employer], gas, oil, or water [employer] threatened to shut off services in your home? No 06/23/2024 Overall Financial Resource Strain (CARDIA) Answe r Date Recorded How hard is it for you to pa y for the very basics like food, housing, medical care, and heating? Not hard at all 06/23/2024 PHQ-2 Answer Date Recorded PHQ-2 Total Score 0 09/14/2024 [facility] [place] of Occupat ional Health - Occupational Stress [...] things needed for daily living? No 05/31/2021 [facility] IP Transportation Answer D ate Recorded [...] 06/23/2024 4:46 PM JASONT Chris Anne RN * PHQ-2 Total Score [...] encounter Miscellaneous Notes * Telephone Encounter - Brenda Burgess RN - 09/14/2024 2:32 PM EDT Spoke with pt about not starting Zepbound until after procedure scheduled 09/16/24. Pt verbalized understanding of holding med for 8 days prior to procedure, & pt reports she has not started this med yet. documented in this encounter Plan of Treatment Upcoming Encounters Date Type Department Care Team (Late st Contact Info) Description 11/16/2024 10:30 AM EDT Clinical Support [facility] H [address] [place] [phone] 11/16/2024 11:00 AM EDT INITIAL VISIT [facility]endez [address] [place] [phone] 03/02/2025 1:30 PM EST Office Visit [facility] [address] [facility] [address] [place] [address] Gia Moctezuma, VINICIO [address] [place] [address] documented as of this encounter Goals Goal Patient Goal Type Associated Problems Recent Progress Patient-Stated? Author Maintain a healthy diet, exercise regularly and maintain an ideal body weight General No Sahra Steward Stay Tobacco Free Lifestyle No Nena Xavier documented as of this encounter Visit Diagnoses Not on filedocumented in this encounter Care Teams In School Suspension Aide Relationship Specialty Start Date End Date Diana Rachel DO [address] [place] [address] PCP - General Family Medicine 09/02/23 documented as of this encounter
--- OUTSIDE RECORDS SUMMARY | 2024-10-16 17:14 | XMS_ITS | Encounter Summary ---
Author Organization [facility] [place] Address [place] [address] Care Team Providers Care Professional Engineer Name Role Phone Diana Rachel DO Primary Care Provider + [phone] Reason for Visit * Reason Onset Date Comments Orders 10/10/2024 vitamin s Encounter Details Date Type Department Care Team (Late st Contact Info) Description 10/10/2024 Telephone [facility] [place] [address] [place] [address] Diana Rachel DO [address] [place] [phone] Orders ( vitamins) Social History Tobacco Use Types Packs/Day Years Used Date Smoking Tobacco: Some Days Cigarettes Passive Smoke Exposure: Past Smokeless Tobacco: Never Alcohol Use Standard Drinks/Week Comments Not Currently 0 (1 standard drink = 0.6 oz pur e alcohol) social- rarely [facility] Utilities Answer Date Recorded In the past 12 months has [employer] electric, gas, oil, or water company threatened to shut off services in your home? No 06/23/2024 Overall Financial Resource Strain (CARDIA) Joe r Date Recorded How hard is it for you to pa y for the very basics like food, housing, medical care, and heating? Not hard at all 06/23/2024 PHQ-2 Answer Date Recorded PHQ-2 Total Score 0 09/14/2024 [facility] [place] of Occupat ional Health - Occupational Stress [...] things needed for daily living? No 05/31/2021 [facility] IP Transportation Answer D ate Recorded [...] 6:31 PM EDT Echo Whipple RN * [place] Suicide Severity Rating Scale (Q shift for [...] encounter Miscellaneous Notes * Telephone Encounter - Lily Briscoe MA - 10/10/2024 1:49 PM EDT Patient notified * Telephone Encounter - Lily Briscoe MA - 10/10/2024 1:48 PM EDT vitamin sent in per Dr. Rachel * Telephone Encounter - Ilan Levine CCMA - 10/10/2024 1:43 PM EDT Select the most appropriate reason for this telephone message: Order Request Who is requesting the Order(s): Patient What Orders are being requested: Other vitamins Reason Orders are Needed (Diagnosis): She is If non-[facility] facility, where should the order be faxed: n/a Return Method of Communication: Phone Call Additional Information: she uses [facility]. documented in this encounter Plan of Treatment Upcoming Encounters Date Type Department Care Team (Late st Contact Info) Description 11/16/2024 10:30 AM EDT [facility] [address] [place] [address] [place] [phone] 11/16/2024 11:00 AM EDT INITIAL VISIT [facility] [address] [place] [phone] 03/02/2025 1:30 PM EST Office Visit [facility] [address] [facility] [address] [place] [phone] Gia Moctezuma APRN [address] [place], [place] [phone] documented as of this encounter Goals Goal Patient Goal Type Associated Problems Recent Progress Patient-Stated? Author Maintain a healthy diet, exercise regularly and maintain an ideal body weight General No Sahra Steward Stay Tobacco Free Lifestyle No Nena Xavier documented as of this encounter Visit Diagnoses Not on filedocumented in this encounter Care Teams Professional Engineer Relationship Specialty Start Date End Date Diana Rachel DO [address] [place] [address] PCP - General Family Medicine 09/02/23 documented as of this encounter
--- OUTSIDE RECORDS SUMMARY | 2024-10-16 17:14 | XMS_ITS | Encounter Summary ---
Author Organization [facility] [place] [address] Care Team Providers Care Dough Panner Name Role Phone Diana Rachel DO Primary Care Provider + [phone] Reason for Visit * Reason Onset Date Comments Medication Management 09/15/2024 Med change requested- please advise. Encounter Details Date Type Department Care Team (Late st Contact Info) Description 09/15/2024 Telephone [facility] [address] [place] [address] Diana Rachel DO [address] [place] [address] Medication Management (Med change requested- please advise. ) Social History Tobacco Use Types Packs/Day Years Used Date Smoking Tobacco: Some Days Cigarettes Passive Smoke Exposure: Past Smokeless Tobacco: Never Alcohol Use Standard Drinks/Week Comments Not Currently 0 (1 standard drink = 0.6 oz pur e alcohol) social [facility] Utilities Answer Date Recorded In the past 12 months has e electric, gas, oil, or water company threatened to shut off services in your home? No 06/23/2024 Overall Financial Resource Strain (CARDIA) Es r Date Recorded How hard is it for you to pa y for the very basics like food, housing, medical care, and heating? Not hard at all 06/23/2024 PHQ-2 Answer Date Recorded PHQ-2 Total Score 0 09/14/2024 [facility] [place] of Occupat ional Health - Occupational Stress [...] things needed for daily living? No 05/31/[address] [facility] IP Transportation Answer D ate Recorded [...] encounter Miscellaneous Notes * Telephone Encounter - Danica Wick MA - 09/15/2024 11:09 AM EDT Bloominoushart message sent. * Telephone Encounter - Diana Rachel DO - 09/15/2024 10:51 AM EDT Have patient call her insurance to see what alternatives they cover * Telephone Encounter - Danica Wick MA - 09/15/2024 10:48 AM EDT please advise * Telephone Encounter - Apryl Brooks - 09/15/2024 10:45 AM EDT Select the most appropriate reason for this telephone message: Medication Management/Problem Who is calling? Patient What medication(s) do you have concerns about: Disp Refills Start End tirzepatide, weight loss, (ZEPBOUND) 2.5 mg/0.5 mL SubQ Pen Injector 2 mL 0 09/14/2024 -- Sig - Route: Inject 2.5 mg under the skin once a week. - Subcutaneous Prescribing provider: Diana Rachel DO What are your concerns/request: This medication is going to be very expensive- it's going to be $1200 OOP and her ins didn't cover ir. Calling to see if there's an alternative that she can have instead Desired outcome: Change in medication Last appointment date: 09/14 Pharmacy: [id number] - [place] [id number] - [address] [place] [phone] Return Method of Communication: Phone Call Additional Information: Please advise documented in this encounter Plan of Treatment Upcoming Encounters Date Type Department Care Team (Late st Contact Info) Description 11/16/2024 10:30 AM EDT Clinical Support [facility] [address] [place] [address] [address] [place] [address] 11/16/2024 11:00 AM EDT INITIAL VISIT [facility] [address] [place] [address] [place] [phone] 03/02/2025 1:30 PM EST Office Visit [facility] [address] [facility] [address] [place] [address] Gia Moctezuma, TREE DEADENER [address] [place] [address] documented as of this encounter Goals Goal Patient Goal Type Associated Problems Recent Progress Patient-Stated? Author Maintain a healthy diet, exercise regularly and maintain an ideal body weight General No Sahra Steward Stay Tobacco Free Lifestyle No Nena Xavier documented as of this encounter Visit Diagnoses Not on filedocumented in this encounter Care Teams Dough Panner Relationship Specialty Start Date End Date Diana Rachel DO [address] [place] [address] PCP - General Family Medicine 09/02/23 documented as of this encounter
--- OUTSIDE RECORDS SUMMARY | 2024-10-16 17:14 | XMS_ITS | Encounter Summary ---
Author Organization [facility] Address [address] [place] [address] Care Team Providers Care Student Financial Services Counselor Name Role Phone Diana Rachel DO Primary Care Provider + [phone] Encounter Details Date Type Department Care Team (Late st Contact Info) Description 08/15/2024 Telephone [facility] [address] [place] [address] Jet Simmons MD [address] [place] [address] Social History Tobacco Use Types Packs/Day Years Used Date Smoking Tobacco: Some Days Cigarettes Passive Smoke Exposure: Past Smokeless Tobacco: Never Alcohol Use Standard Drinks/Week Comments Not Currently 0 (1 standard drink = 0.6 oz pur e alcohol) social [facility] Utilities Answer Date Recorded In the past 12 months has [employer], gas, oil, or water [employer] threatened to shut off services in your home? No 06/23/2024 Overall Financial Resource Strain (CARDIA) Answe r Date Recorded How hard is it for you to pa y for the very basics like food, housing, medical care, and heating? Not hard at all 06/23/2024 PHQ-2 Answer Date Recorded PHQ-2 Total Score 0 09/14/2024 [facility] [place] of Occupat ional Health - Occupational Stress [...] things needed for daily living? No 05/31/2021 [facility] IP Transportation Answer D ate [...] Support [facility] [address] [place] [address] 11/16/2024 11:00 AM EDT INITIAL VISIT [facility] [address] [place] [address] 03/02/2025 1:30 PM EST Office Visit [facility] [address] [place] [address] Gia Moctezuma, HIDE STRETCHER HAND [address] [place] [address] documented as of this encounter Goals Goal Patient Goal Type Associated Problems Recent Progress Patient-Stated? Author Maintain a healthy diet, exercise regularly and maintain an ideal body weight General No Sahra Steward Stay Tobacco Free Lifestyle No Nena Xavier documented as of this encounter Visit Diagnoses Not on filedocumented in this encounter Care Teams Student Financial Services Counselor Relationship Specialty Start Date End Date Diana Rachel DO [address] [place], [place] [id number] PCP - General Family Medicine 09/02/23 documented as of this encounter
--- OUTSIDE RECORDS SUMMARY | 2024-10-16 17:14 | XMS_ITS | Encounter Summary ---
Author Organization [place] [address] Care Team Providers Care Topper Press Operator Automatic Name Role Phone Diana Rachel DO Primary Care Provider + [phone] Reason for Visit * Reason Onset Date Comments Results 07/04/2024 PATHOLOGY TISSUE REQUEST Encounter Details Date Type Department Care Team (Late st Contact Info) Description 07/04/2024 Telephone [facility] [place] [address] [place] [address] Diana Rachel DO [address] [place] [phone] Results (PATHOLOGY TISSUE REQUEST) Social History Tobacco Use Types Packs/Day Years Used Date Smoking Tobacco: Never Passive Smoke Exposure: Past Smokeless Tobacco: Never Alcohol Use Standard Drinks/Week Comments Yes 0 (1 standard drink = 0.6 oz pur e alcohol) social [facility] Utilities Answer Date Recorded In the past 12 months has [employer] electric, gas, oil, or water [employer] threatened to shut off services in your home? No 06/23/2024 Overall Financial Resource Strain (CARDIA) Joe r Date Recorded How hard is it for you to pa y for the very basics like food, housing, medical care, and heating? Not hard at all 06/23/2024 PHQ-2 Answer Date Recorded PHQ-2 Total Score 0 06/23/2024 [facility] [place] of Occupat ional Health - Occupational Stress [...] for daily living? No 05/31/2021 [facility] IP Transportation Answer D ate Recorded [...] 10:05 AM EDT Kj Gómez RN * Rabun Suicide Severity Rating Scale (Q shift for [...] Telephone Encounter - Danica Wick MA - 07/04/2024 4:11 PM EDT Sent via [email or web address] as well. * Telephone Encounter - Elizbaeth Boucher CCMA - 07/04/2024 4:02 PM EDT Tried to call no answer * Telephone Encounter - Diana Rachel DO - 07/04/2024 3:25 PM EDT A. Small bowel, biopsy: - H. pylori is negative B. Stomach, biopsy: - No significant pathologic changes. - H. pylori is negative C. Esophagus, biopsy: - GMS is negative for fungal structures. - Negative for malignancy. * Telephone Encounter - Danica Wick MA - 07/04/2024 2:13 PM EDT Please advise * Telephone Encounter - Ann Marie Glover LPN - 07/04/2024 2:09 PM EDT Select the most appropriate reason for this telephone message: Test Result(s) Purpose of call: Patient seeking results Type of test: Lab-PATHOLOGY TISSUE REQUEST Date of test: 06/23/24 Who ordered the test: was done while pt was admitted in the hospital Where was test performed: [facility] Return Method of Communication: Phone Call Additional Information: Please advise,thank you documented in this encounter Plan of Treatment Upcoming Encounters Date Type Department Care Team (Late Contact Info) Description 11/16/2024 10:30 AM EDT Clinical Support [facility] [address] [place] [address] [place] [phone] 11/16/2024 11:00 AM EDT INITIAL VISIT SEP [facility] [address] [place] [phone] 03/02/2025 1:30 PM EST Office Visit [facility] [address] [place] [address] Gia Moctezuma, FISH FARM LABORER [address] [facility] [place] [address] documented as of this encounter Goals Goal Patient Goal Type Associated Problems Recent Progress Patient-Stated? Author Maintain a healthy diet, exercise regularly and maintain an ideal body weight General No Sahra Steward documented as of this encounter Visit Diagnoses Not on filedocumented in this encounter Care Teams Topper Press Operator Automatic Relationship Specialty Start Date End Date Diana Rachel DO [employer] [place] [address] PCP - General Family Medicine 09/02/23 documented as of this encounter
--- OUTSIDE RECORDS SUMMARY | 2024-10-16 17:14 | XMS_ITS | Encounter Summary ---
Author Organization [facility] [place] [address] Care Team Providers Care Lyft Driver Name Role Phone Omer Rachelelle Chris HARRINGTON Primary Care Provider + [phone] Encounter Details Date Type Department Care Team (Latest Contact Info) Description 09/05/2024 Travel Social History Tobacco Use Types Packs/Day Years Used Date Smoking Tobacco: Some Days Cigarettes Passive Smoke Exposure: Past Smokeless Tobacco: Never Alcohol Use Standard Drinks/Week Comments Not Currently 0 (1 standard drink = 0.6 oz pur e alcohol) social C Utilities Answer Date Recorded In the past 12 months has [employer] electric, gas, oil, or water [employer] threatened to shut off services in your home? No 06/23/2024 Overall Financial Resource Strain (CARDIA) Answe r Date Recorded How hard is it for you to pa y for the very basics like food, housing, medical care, and heating? Not hard at all 06/23/2024 PHQ-2 Answer Date Recorded PHQ-2 Total Score 0 06/23/2024 [facility] [place] of Occupat ional Health - Occupational Stress [...] things needed for daily living? No 05/31/2021 [facility] IP Transportation Answer D ate Recorded In [...] Support [facility] [address] [place] [address] 11/16/2024 11:00 AM EDT INITIAL VISIT [facility] [address] [place] [address] 03/02/2025 1:30 PM EST Office Visit [facility] [address] [facility] [address] [place] [address] Gia Moctezuma, BUSINESS DEVELOPMENT EXECUTIVE [address] [place] [address] documented as of this encounter Goals Goal Patient Goal Type Associated Problems Recent Progress Patient-Stated? Author Maintain a healthy diet, exercise regularly and maintain an ideal body weight General No Sahra Steward documented as of this encounter Visit Diagnoses Not on filedocumented in this encounter Care Teams Lyft Driver Relationship Specialty Start Date End Date Diana Rachel DO [address] [place], [place] [phone] PCP - General Family Medicine 09/02/23 documented as of this encounter
--- OUTSIDE RECORDS SUMMARY | 2024-10-16 17:14 | XMS_ITS | Encounter Summary ---
Author Organization [place] Address [place] [address] Care Team Providers Care Supervisor Photoengraving Name Role Phone Diana Rachel DO Primary Care Provider + [phone] Encounter Details Date Type Department Care Team (Late st Contact Info) Description 10/10/2024 Orders Only SEP [place] [address] [place] [id number] Diana Rachel DO [address] [place] [address] , unspecified gestational age (Primary Dx) Social History Tobacco Use Types Packs/Day Years Used Date Smoking Tobacco: Some Days Cigarettes Passive Smoke Exposure: Past Smokeless Tobacco: Never Alcohol Use Standard Drinks/Week Comments Not Currently 0 (1 standard drink = 0.6 oz pur e alcohol) social- rarely [facility] Utilities Answer Date Recorded In the past 12 months has [employer], gas, oil, or water [employer] threatened to shut off services in your home? No 06/23/2024 Overall Financial Resource Strain (CARDIA) Joe r Date Recorded How hard is it for you to pa y for the very basics like food, housing, medical care, and heating? Not hard at all 06/23/2024 PHQ-2 Answer Date Recorded PHQ-2 Total Score 0 09/14/2024 [facility] [place] of Occupat ional Health - Occupational Stress [...] things needed for daily living? No 05/31/2021 [facility] IP Transportation Answer D ate Recorded In [...] Refills Last Filled Start Date End Date vit no.[id number] ( VITAMIN) 27 mg iron- 800 mcg Oral TabletIndications:P regnancy, unspecified gestational age Take 1 Tablet by mouth daily. 90 Tablet 1 10/10/2024 documented in this encounter Plan of Treatment Upcoming Encounters Date Type Department Care Team (Late st Contact Info) Description 11/16/2024 10:30 AM EDT Clinical Support [facility] [address] [place] [address] [place] [phone] 11/16/2024 11:00 AM EDT INITIAL VISIT SEP [facility] [address] [address] 03/02/2025 1:30 PM EST Office Visit [facility] [address] [facility] [address] [place] [phone] Gia Moctezuma, PHARMACEUTICAL SALES REPRESENTATIVE [address] [place] [address] documented as of this encounter Goals Goal Patient Goal Type Associated Problems Recent Progress Patient-Stated? Author Maintain a healthy diet, exercise regularly and maintain an ideal body weight General No Sahra Steward Stay Tobacco Free Lifestyle No Nena Xavier documented as of this encounter Visit Diagnoses Diagnosis , unspecified gestational age- Primary documented in this encounter Care Teams Supervisor Photoengraving Relationship Specialty Start Date End Date Diana Rachel DO [place] [phone] PCP - General Family Medicine 09/02/23 documented as of this encounter
--- NOTE | 2024-10-16 17:34 | HMH.EDGENADL ---
Discharge Plan Disposition Patient Disposition: Home, Self-Care Referrals Follow up/Referrals: Diana Rachel DO [Primary Care Provider, Family Practice] - See instructions Cindy Malhotra DO [Staff Physician, ADOPTION SOCIAL WORKER] - See instructions Activity Restrictions/Add. Instructions Additional Instructions/Restrictions: As discussed you had a single living intrauterine at 8 weeks 4 days consistent with your dates and normal heart rate. Your abdominal exam was benign no concern for intra-abdominal emergency at the moment please return to the emergency department any worsening of your symptoms otherwise follow-up with Dr. Malhotra Clinical Impressions Clinical Impression: First trimester , Abdominal cramping affecting Instructions Patient Instructions: DI for Acute Abdominal Pain Print Language Print Language: German Discharge ED Provider: Leon Villanueva General Adult HPI General Chief complaint: Abdominal Pain Stated complaint: 2 months preg, cramping for couple days Time Seen by Provider: 10/16/24 17:11 Mode of Arrival: Ambulatory Source of Information: Patient Description of Symptoms (Recalled from ER Triage Doc. by RN): PATIENT PRESENTS TO ED FOR ABDOMINAL PAIN DURING , REPORTS SHE IS 2 MONTHS . REPORTS EPIGASTRIC AND PELVIC PAIN. DENIES N/V/D, DENIES VAGINAL BLEEDING.3 History of Present Illness HPI narrative: Patient is a 24-year-old G4, P3 at 8 weeks by gestational age presenting today with mild abdominal cramping. States she has had bad experiences at other hospitals with delivery and would like to establish care here. Denies any vaginal bleeding vaginal discharge dysuria frequency urgency high fevers etc. Has not taken any medications for this yet. Related Data Allergies Allergy/AdvReac Type Severity Reaction Status Date / Time codeine Allergy Other Verified 02/17/24 03:17 [facility] Disclaimer: The information contained in this section may have been updated after the patient was seen, as this information can be updated by other users. Social History (Updated 02/17/24 @ 06:24 by Louis Xavier MD) Smoking Status: Never smoker alcohol intake: never current occupational status: other Travel in the last 8 weeks?: None Have you lived/traveled outside US in past 30 days?: No Contact w/someone who lives/traveled outside US past 30 days?: No Exposure to someone with infectious disease in past 14 days?: No Do you have a fever (greater than 100.4 F or 38 C)?: No Have you tested positive for COVID-19?: No Exposed to someone with COVID-19 in past 14 days?: No Do you have a sore throat?: No Do you have a cough?: No Do you have any weakness?: No Do you have any diarrhea?: No Are you experiencing any unusual bleeding?: No Do you have any muscle aches/pain?: No Do you have any abdominal pain?: No Are you experiencing loss of taste or smell?: No ROS Obtained: Yes All systems reviewed & no additional complaints except as documented Physical Exam General General appearance: alert and in no apparent distress Respiratory Respiratory exam: Present normal lung sounds bilaterally Cardiovascular Cardiovascular exam: Present regular rate Abdominal Exam Abdominal exam: Present soft; Absent distention or tenderness Neurological Exam Neurological exam: Present alert and oriented X3 Medical Decision Making Medical Records Screening: Per USPSTF and CDC recommendations, given the prevalence of disease in our region, it is our hospital?s policy to screen for HIV and viral Hepatitis for all patients aged 18 and over and those with ongoing risk factors. Jack Inquiry Pt receiving controlled substance: No Vital Signs: 10/16/24 17:12 10/16/24 17:12 Temperature 98.8 F 98.8 F Temperature Source Oral Pulse Rate 78 Pulse Rate [Right] 78 Respiratory Rate 16 16 Blood Pressure 126/79 Blood Pressure [Right Arm] 126/79 Blood Pressure Mean [Right Arm] 94 02 Sat by Pulse Oximetry 100 100 Oxygen Delivery Method Room Air Orders (Tests/Meds): ORDERS Category Date Time Status POCUS Point of Care (ER Only) Stat Exams 10/16/24 17:11 Ordered Medical Decision Narrative: Patient is a 24-year-old female presenting today with above history and physical very benign abdominal exam not concerning for intra-abdominal emergency. Bedside ultrasound was performed which demonstrated a single living intrauterine consistent with dates with normal heart rate. She has been advised to take Tylenol and/or Benadryl at home as needed for abdominal discomfort and to follow-up with our doctors here information was given she was given a referral to Dr. Malhotra. She has been vies to return with any significant worsening of her symptoms but no indication for any labs CT imaging etc. at the moment. Procedures Miscellaneous Procedure Procedure Performed: Limited OB ultrasound Indication: Abdominal cramping in setting of positive test Identified structures: [-Uterus -Left adnexa -Right adnexa -Pouch of Miguel] Findings: Uterus: Definitive IUP crown-rump length measuring 8 weeks 4 days FHR: 156 Right adnexa: No free fluid Left adnexa: No free fluid Cul de sac: Absent fluid Impression: -IUP: Present - heart rate: Normal at 150 -Ectopic : Absent -Free fluid: Absent Images were saved to permanent archive The study was technically adequate CPT Transabdominal: 48359-92 This study was performed by me, and I personally interpreted all images/videos. Based on my clinical judgement, these images were adequate and did not necessitate further imaging. Critical Care Critical Care Time Critical Care Time: No
[2024-10-16 17:36] VITALS: BP 113/75; PULSE 82; RESP 16; TEMP 37.1; O2SAT 100
== END 2024-10-16 17:40 | disposition home or self-care (01) ==
PROVIDERS: Emergency Provider Student in an Organized Health Care Education/Training Program; PCP Student in an Organized Health Care Education/Training Program
DX: O26.891 Other specified pregnancy related conditions, first trimester (principal); R10.13 Epigastric pain; Z3A.08 8 weeks gestation of pregnancy
CPT/HCPCS: 99283